=== PATIENT | male | born 1955 | race American Indian/Alaskan Native ===

== ENCOUNTER 2019-05-30 06:54 | Inpatient (IN) | payer OTHER ==
[2019-05-30] MEDS ORDERED: ASPIRIN PO ONE (07:12)
[2019-05-30] MEDS ORDERED: HEPARIN 10,000 UNITS/10 ML IV ONE (07:30)
[2019-05-30] MEDS ORDERED: NITROSTAT SL PRN (07:32)
[2019-05-30] MEDS ORDERED: PEPCID IV ONE (07:32)
[2019-05-30] MEDS ORDERED: MORPHINE IV ONE (07:32)
[2019-05-30 07:33] LABS: Basophils # (Auto) 0.1 K/mm3 (0.0-0.1); Basophils % (Auto) 0.7 % (0.0-1.8); Eosinophils % (Auto) 0.2 % (0.0-4.3); Hematocrit 50.1 % (35.5-45.6); Hemoglobin 16.1 gm/dl (11.8-15.2); Lymphocytes # (Auto) 2.7 K/mm3 (1.2-5.4); Lymphocytes % (Auto) 20.2 % (13.4-35.0); Mean Corpuscular HGB Conc 32 % (32-34); Mean Corpuscular Volume 87 fl (84-94); Monocytes # (Auto) 0.9 K/mm3 (0.0-0.8); Monocytes % (Auto) 6.6 % (0.0-7.3); Platelet Count 339 K/mm3 (140-440); Red Blood Count 5.78 M/mm3 (3.65-5.03); Red Cell Distribution Width 15.6 % (13.2-15.2)
--- NOTE | 2019-05-30 07:38 | Emergency Department Report ---
ED Chest Pain HPI - General Chief Complaint: Dyspnea/Respdistress Stated Complaint: SHORTNESS OF BREATH Time Seen by Provider: 05/30/19 07:16 Source: patient, RN notes reviewed Mode of arrival: Ambulatory Limitations: No Limitations - History of Present Illness Initial Comments: This is a 63-year-old gentleman. This patient is not known to this provider previously. The patient presents to the ER today with a complaint of nontraumatic chest pain and shortness of breath. The shortness of breath was present upon yesterday. It is constant, worsens with physical exertion and decreases with rest. The patient states that he has central and subxiphoid chest discomfort, which does not radiate to the back, arms and neck. There is no vomiting or diaphoresis. There is no leg pain. There is no leg swelling. Positive recent road trip to [place]. Patient describes a sudden change in his exercise tolerance, which he noticed yesterday morning. He denies headache, neck pain, abdominal pain, hematemesis, bright red blood per rectum. Took an aspirin within the past 24 hours, denies meth, cocaine use, and denies using of erectile dysfunction medications. MD Complaint: chest pain, other -: hour(s), days(s) (1) Onset: during rest Pain Location: substernal, left chest Pain Radiation: none Quality: aching Consistency: constant Improves With: rest Worsens With: exertion Context: recent travel re: dyspnea. denies: nausea, vomting, diaphoresis Aspirin use within the Past 7 Days: (1) Yes - Related Data On Oral Contraceptives: No Home Medications Medication Instructions Recorded Confirmed Last Taken Atenolol/Chlorthalidone [Tenoretic 1 tab PO QDAY 05/30/19 05/30/19 Unknown 100-25] Lisinopril [Zestril TAB] 40 mg PO QDAY 05/30/19 05/30/19 Unknown amLODIPine [Norvasc] 10 mg PO DAILY 05/30/19 05/30/19 Unknown Allergies Allergy/AdvReac Type Severity Reaction Status Date / Time No Known Allergies Allergy Unverified 05/30/19 07:05 Heart Score - HEART Score History: Highly suspicious EKG: Significant ST-depression Age: 45-65 Risk factors: 1-2 risk factors Troponin: 1-3x normal limit HEART Score: 7 - Critical Actions Critical Actions: >7 pts:50-65% risk of adverse cardiac event. Early invasive measures ED Review of Systems ROS: Stated complaint: SHORTNESS OF BREATH Other details as noted in HPI Constitutional: malaise. denies: fever Eyes: denies: eye discharge ENT: denies: epistaxis, congestion Respiratory: shortness of breath Cardiovascular: chest pain Gastrointestinal: denies: hematemesis, melena, hematochezia Genitourinary: denies: dysuria Musculoskeletal: back pain (endorses chronic back pain, other new) Skin: denies: lesions Neurological: weakness Psychiatric: anxiety Hematological/Lymphatic: denies: easy bleeding ED Past Medical Hx - Past Medical History Hx Hypertension: Yes Additional medical history: High Cholesterol - Surgical History Past Surgical History?: No - Social History Smoking Status: Current Every Day Smoker Substance Use Type: Alcohol - Medications Home Medications: Home Medications Medication Instructions Recorded Confirmed Last Taken Type Atenolol/Chlorthalidone [Tenoretic 1 tab PO QDAY 05/30/19 05/30/19 Unknown History 100-25] Lisinopril [Zestril TAB] 40 mg PO QDAY 05/30/19 05/30/19 Unknown History amLODIPine [Norvasc] 10 mg PO DAILY 05/30/19 05/30/19 Unknown History ED Physical Exam - General Limitations: No Limitations General appearance: alert, anxious - Head Head exam: Present: atraumatic, normocephalic - Eye Eye exam: Present: normal appearance, EOMI. Absent: nystagmus - ENT ENT exam: Present: normal exam, normal orophraynx, mucous membranes moist, n ormal external ear exam - Neck Neck exam: Present: normal inspection, full ROM. Absent: tenderness, meningismus - Respiratory Respiratory exam: Present: normal lung sounds bilaterally. Absent: respiratory distress - Cardiovascular Cardiovascular Exam: Present: normal rhythm, tachycardia, normal heart sounds. Absent: systolic murmur, diastolic murmur, rubs, gallop - GI/Abdominal GI/Abdominal exam: Present: soft. Absent: distended, tenderness, guarding, rebound, rigid, pulsatile mass - Rectal Rectal exam: Present: deferred - Extremities Exam Extremities exam: Present: normal inspection, full ROM, other (2+ pulses noted in the bilateral upper, lower extremities. Compartments soft. No long bony tenderness. The pelvis is stable.). Absent: pedal edema, joint swelling, calf tenderness - Back Exam Back exam: Present: normal inspection, full ROM. Absent: tenderness, CVA tenderness (R), CVA tenderness (L), paraspinal tenderness, vertebral tenderness - Neurological Exam Neurological exam: Present: alert, oriented X3, other (Extraocular movements intact. Tongue midline. No facial droop. Facial sensation intact to light touch in the V1, V2, V3 distribution bilaterally. 5 and 5 strength in 4 extremities.. Sensation is intact to light touch in 4 extremities.). Absent: motor sensory deficit - Psychiatric Psychiatric exam: Present: anxious - Skin Skin exam: Present: warm, dry, intact, normal color. Absent: rash ED Course Vital Signs 05/30/19 05/30/19 05/30/19 07:07 07:25 07:30 Temperature 99.3 F Pulse Rate 138 H 138 H Respiratory 18 26 H Rate Blood Pressure 126/90 O2 Sat by Pulse 93 92 Oximetry 05/30/19 05/30/19 05/30/19 07:46 07:50 08:00 Temperature Pulse Rate 131 H 133 H 120 H Respiratory 22 22 Rate Blood Pressure 84/55 O2 Sat by Pulse 93 89 Oximetry 05/30/19 05/30/19 05/30/19 08:58 09:00 09:16 Temperature Pulse Rate 120 H 122 H Respiratory 25 H 19 Rate Blood Pressure 114/83 114/83 123/82 O2 Sat by Pulse 93 94 89 Oximetry 05/30/19 05/30/19 05/30/19 09:30 09:46 10:00 Temperature Pulse Rate 114 H 121 H 120 H Respiratory 24 17 18 Rate Blood Pressure 99/69 102/68 102/68 O2 Sat by Pulse 88 87 86 Oximetry 05/30/19 05/30/19 05/30/19 10:16 10:30 10:46 Temperature Pulse Rate 115 H 113 H 117 H Respiratory 21 21 21 Rate Blood Pressure 112/76 112/76 103/82 O2 Sat by Pulse 95 96 94 Oximetry 05/30/19 05/30/19 05/30/19 11:00 11:16 11:30 Temperature Pulse Rate 117 H 117 H 118 H Respiratory 22 23 21 Rate Blood Pressure 103/82 108/72 108/72 O2 Sat by Pulse 94 94 92 Oximetry 05/30/19 05/30/19 11:46 12:00 Temperature Pulse Rate 116 H 118 H Respiratory 22 25 H Rate Blood Pressure 108/72 108/72 O2 Sat by Pulse 94 92 Oximetry - Reevaluation(s) Reevaluation #1: 05/30/19 07:41 Differential diagnosis, including not limited to: Acute coronary syndrome, pneumonia, pneumothorax, pulmonary embolism, anemia, pericardial effusion Assessment and plan: 63-year-old gentleman status post recent trip to [place], with tachycardic, low-grade temperature, presumed related ST depression, nonsp ecific ST abnormalities, initially called as a code STEMI overhead secondary to initial EKG morphology, EKG transmitted to staffing recruiter on-call, Dr. Richa Brooks, who advises that this EKG does not meet cleaner laboratory equipment criteria activation. A bedside ultrasound demonstrates hyperdynamic left ventricle and right ventricle, but appears to be a dilated right atrium right ventricle, no large pericardial effusion, suspicious for pulmonary embolism. Currently, CT scan angiogram capability is down, however, high suspicion for large pulmonary embolism at this time. EKG #2 is certainly not consistent with ST elevation myocardial infarction. Cardiology has recommended aspirin and heparinization which I agree with. Patient to be systemically anticoagulated. We will obtain emergent vascular rangel rgery and critical care pulmonary consult to assist with inpatient management, given that definitive noninvasive diagnostics cannot be obtained at this time. 05/30/19 07:56 Reevaluation #2: 05/30/19 07:57 Laboratory studies demonstrate renal insufficiency. Troponin pending. X-ray of the chest nonspecific, does not appear to be consistent with pneumothorax or pneumonia. We have discussed with vascular surgery Dr. Chávez. His group will follow in close consultation. They are in agreement with systemic anticoagulation with heparin. They will determine intervention based off of the VQ study. Critical care physician is paged. Hospital physician to arrange admission. 05/30/19 08:04 Dr. Soriano of critical care will follow in consultation. He is in agreement with the plans. The hospital physician, Dr. Ragland will admit to medical service Elevated troponin reviewed and appreciated. Patient found to have renal insufficiency. Given clinical history, and current EKG morphology, suspect type II troponin leak. Reevaluation #3: 05/30/19 09:00 As per verbal report, has DVT right lower extremity, and very high probability nuclear medicine study, suspicious for large clot burden, as suspected. Vascular surgery updated. Patient updated. Patient and family verbalized understanding. ASHU score - Ashu Score Age > 65: (0) No Aspirin use within the Past 7 Days: (1) Yes 3 or more CAD Risk Factors: (0) No 2 or more Angina events in past 24 hrs: (0) No Known CAD with more than 50% Stenosis: (0) No Elevated Cardiac Markers: (1) Yes ST Deviation Greater than 0.5mm: (1) Yes ASHU Score: 3 ED Medical Decision Making - Lab Data Result diagrams: 05/30/19 13:47 05/30/19 13:47 Vital Signs 05/30/19 07:07 Temperature 99.3 F Pulse Rate 138 H Respiratory 18 Rate Blood Pressure 126/90 O2 Sat by Pulse 93 Oximetry Lab Results 05/30/19 05/30/19 Range/Units 07:18 07:18 WBC 13.2 H (4.5-11.0) K/mm3 RBC 5.78 H (3.65-5.03) M/mm3 Hgb 16.1 H (11.8-15.2) gm/dl Hct 50.1 H (35.5-45.6) % MCV 87 (84-94) fl MCH 28 (28-32) pg MCHC 32 (32-34) % RDW 15.6 H (13.2-15.2) % Plt Count 339 (140-440) K/mm3 Lymph % (Auto) 20.2 (13.4-35.0) % [place] % (Auto) 6.6 (0.0-7.3) % Eos % (Auto) 0.2 (0.0-4.3) % Baso % (Auto) 0.7 (0.0-1.8) % Lymph # 2.7 (1.2-5.4) K/mm3 [place] # 0.9 H (0.0-0.8) K/mm3 Eos # 0.0 (0.0-0.4) K/mm3 Baso # 0.1 (0.0-0.1) K/mm3 Seg Neutrophils % 72.3 H (40.0-70.0) % Seg Neutrophils # 9.6 H (1.8-7.7) K/mm3 Sodium 141 (137-145) mmol/L Potassium 3.8 (3.6-5.0) mmol/L Chloride 97.6 L (98-107) mmol/L Carbon Dioxide 26 (22-30) mmol/L Anion Gap 21 mmol/L BUN 29 H (9-20) mg/dL Creatinine 2.0 H (0.8-1.5) mg/dL Estimated GFR 34 ml/min BUN/Creatinine Ratio 15 % Glucose 140 H (75-100) mg/dL Calcium 10.4 H (8.4-10.2) mg/dL Troponin T 0.202 H* (0.00-0.029) ng/mL Lab Results 05/30/19 05/30/19 Range/Units 07:18 07:18 WBC 13.2 H (4.5-11.0) K/mm3 RBC 5.78 H (3.65-5.03) M/mm3 Hgb 16.1 H (11.8-15.2) gm/dl Hct 50.1 H (35.5-45.6) % MCV 87 (84-94) fl MCH 28 (28-32) pg MCHC 32 (32-34) % RDW 15.6 H (13.2-15.2) % Plt Count 339 (140-440) K/mm3 Lymph % (Auto) 20.2 (13.4-35.0) % [place] % (Auto) 6.6 (0.0-7.3) % Eos % (Auto) 0.2 (0.0-4.3) % Baso % (Auto) 0.7 (0.0-1.8) % Lymph # 2.7 (1.2-5.4) K/mm3 [place] # 0.9 H (0.0-0.8) K/mm3 Eos # 0.0 (0.0-0.4) K/mm3 Baso # 0.1 (0.0-0.1) K/mm3 Seg Neutrophils % 72.3 H (40.0-70.0) % Seg Neutrophils # 9.6 H (1.8-7.7) K/mm3 Sodium 141 (137-145) mmol/L Potassium 3.8 (3.6-5.0) mmol/L Chloride 97.6 L (98-107) mmol/L Carbon Dioxide 26 (22-30) mmol/L Anion Gap 21 mmol/L BUN 29 H (9-20) mg/dL Creatinine 2.0 H (0.8-1.5) mg/dL Estimated GFR 34 ml/min BUN/Creatinine Ratio 15 % Glucose 140 H (75-100) mg/dL Calcium 10.4 H (8.4-10.2) mg/dL Troponin T 0.202 H* (0.00-0.029) ng/mL - EKG Data -: EKG Interpreted by Me EKG shows normal: sinus rhythm Rate: tachycardia - EKG Data 05/30/19 08:04 EKG #1 shows a sinus tachycardia, left axis deviation, left anterior fascicular block, atrial enlargement, poor R progression, ST depression in the lateral leads, nonspecific ST ST elevation in V1 and V2, the EKG is abnormal. The EKG is transmitted to interventional cardiology, Dr. Richa Brooks, who indicates the EKG does not meet STEMI criteria. EKG #2 shows a sinus tachycardia, 131 bpm, left axis deviation, QTC prolonged, poor r wave progression, improvement in nonspecific septal ST abnormalities, persistent depression V4 through V6. This EKG is abnormal. EKG is not consistent with ST elevation myocardial infarction. - Radiology Data Radiology results: image reviewed interpreted by me: X-ray of the chest negative for acute disease, chronic findings noted Print Report Referring Physician: PARKER DIAZ Patient Name: HERO KWONG Date of : 1955 Sex: Male Report Date: 2019-05-30 Report Status: [place] [address] Nuclear Medicine Report Signed Patient: HERO KWONG MR#: [id number] : 1955 Acct:[id number] Age/Sex: 63 / M ADM Date: 05/30/19 Loc: 3A A385-[address]: CARRIE RAGLAND MD Ordering Physician: PARKER DIAZ MD Date of Service: 05/30/19 Procedure(s): NM lung scan perf/vent Accession Number(s): [id number] cc: PARKER DIAZ MD VENTILATION PERFUSION PULMONARY SCINTIGRAPHY HISTORY: Chest pain, shortness of breath COMPARISON: 05/30/2019 chest radiograph. TECHNIQUE: Radiopharmaceutical was inhaled. Tc-99m-MAA was then injected. Ventilation and perfusion images were acquired. RADIOPHARMACEUTICAL: 8.3 mCi of Xe-133 inhaled Or 0.5 mCi of Tc-99m-MAA injected FINDINGS: VENTILATION: No significant air trapping or defect. PERFUSION: Multiple bilateral large mismatched perfusion defects are identified throughout both lungs consistent with a high probability of pulmonary embolus. Given the size and number of the defects, thrombus burden appears large. Additional Findings: None. IMPRESSION: High probability for bilateral pulmonary emboli. These findings were discussed with Dr. Garcia in the emergency department at 0853 hours EST. Signer Name: Celestine Saavedra Jr, MD Signed: 05/30/2019 8:58 AM Workstation Name: [id number] Transcribed By: TTR Dictated By: CELESTINE SAAVEDRA JR, MD Electronically Authenticated By: CELESTINE SAAVEDRA JR, MD Signed Date/Time: 05/30/19 0858 Critical Care Time: Yes Critical care time in (mins) excluding proc time.: 120 Critical care attestation.: If time is entered above; I have spent that time in minutes in the direct care of this critically ill patient, excluding procedure time. ED Disposition Clinical Impression: Acute chest pain, Acute dyspnea, ERLIN (acute kidney injury) Pulmonary embolism Qualifiers: Pulmonary embolism type: other Chronicity: unspecified Acute cor pulmonale presence: without acute cor pulmonale Qualified Code(s): I26.99 - Other pulmonary embolism without acute cor pulmonale Disposition: 09 OP ADMIT IP TO THIS HOSP Is pt being admited?: Yes Condition: Critical
[2019-05-30] MEDS ORDERED: NACL 0.9% 500 ML 500 ML IV ONE (07:39)
[2019-05-30 07:50] LABS: Calcium 10.4 mg/dL (8.4-10.2)
--- NOTE | 2019-05-30 07:57 | Event Note ---
Date: 05/30/19 63 year old male with SOB and CP with dilated right heart on echo with concern for submassive pulmonary embolism. Cr is 2. HR tachycardic. No hypotension. Not on pressors. O2 sat low 90s on oxygen. Not STEMI on EKG. Obtaining VQ scan. Will follow. Vascular consulted for possible submassive pulmonary embolism. Will order BL LE venous ultrasounds as well.
[2019-05-30] MEDS ORDERED: HEPARIN/ 0.45% NACL-25,000 UNIT/500 ML 25,000 UNIT/500 ML BAG IV SCH (08:00)
[2019-05-30] MEDS ORDERED: AMBIEN PO PRN (08:04)
[2019-05-30] MEDS ORDERED: SODIUM CHLORIDE FLUSH SYRINGE 10 ML IV PRN (08:04)
[2019-05-30] MEDS ORDERED: NORCO 5/325 PO PRN (08:04)
[2019-05-30] MEDS ORDERED: ZOFRAN IV PRN (08:04)
[2019-05-30] MEDS ORDERED: TYLENOL PO PRN (08:04)
--- NOTE | 2019-05-30 08:04 | XRay Report ---
CHEST 1 VIEW INDICATION: Chest Pain. COMPARISON: FINDINGS: Support devices: None. Heart: Within normal limits. Lungs/Pleura: The lungs are clear. A 5 mm calcified granuloma is identified in the right upper lobe. No evidence for pneumonia, pleural fluid or pneumothorax. The bony structures are grossly intact. Additional findings: None. IMPRESSION: No acute findings. Signer Name: Celestine Simon Jr, MD Signed: 05/30/2019 8:00 AM Workstation Name: [id number]
[2019-05-30 08:07] LABS: Chol/HDL Ratio 3.31 %
[2019-05-30 08:09] LABS: INR 1.05 (0.87-1.13); Partial Thromboplastin Time 33.2 Sec. (24.2-36.6)
--- NOTE | 2019-05-30 09:02 | Nuclear Medicine Report ---
VENTILATION PERFUSION PULMONARY SCINTIGRAPHY HISTORY: Chest pain, shortness of breath COMPARISON: 05/30/2019 chest radiograph. TECHNIQUE: Radiopharmaceutical was inhaled. Tc-99m-MAA was then injected. Ventilation and perfusion images were acquired. RADIOPHARMACEUTICAL: 8.3 mCi of Xe-133 inhaled Or 0.5 mCi of Tc-99m-MAA injected FINDINGS: VENTILATION: No significant air trapping or defect. PERFUSION: Multiple bilateral large mismatched perfusion defects are identified throughout both lungs consistent with a high probability of pulmonary embolus. Given the size and number of the defects, t hrombus burden appears large. Additional Findings: None. IMPRESSION: High probability for bilateral pulmonary emboli. These findings were discussed with Dr. Garcia in the emergency department at 0853 hours EST. Signer Name: Celestine Simon Jr, MD Signed: 05/30/2019 8:58 AM Workstation Name: [id number]
[2019-05-30] MEDS ORDERED: HEPARIN/ 0.45% NACL-25,000 UNIT/500 ML 25,000 UNIT/500 ML BAG ONE (09:52)
[2019-05-30] MEDS ORDERED: HEPARIN 10,000 UNITS/10 ML ONE (09:52)
[2019-05-30] MEDS: SODIUM CHLORIDE FLUSH SYRINGE 10 ML IV SCH ×2 (10:07→21:39)
--- NOTE | 2019-05-30 10:12 | Consultation ---
History of Present Illness Consult date: 05/30/19 Consult reason: chest pain, shortness of breath History of present illness: The patient is a 63-year-old man with a history of chronic hypertension, denies any prior cardiac history or prior cardiac work. He presented to the emergency room with a one-day history of chest pain and shortness of breath. ECG in the emergency room was abnormal, with sinus tachycardia and lateral ST depression, suggestive of acute ischemia. Cardiology consultation was requested. Further emergency room workup was indicated based on the patient's high oxygen requirement, and recent long road trip to [facility]. A VQ scan subsequently was high probability for pulmonary embolism, and a lower extremity venous Doppler was positive for left leg DVT. Chest x-ray was clear lungs, mild cardiomegaly. The patient is currently still in the emergency room, looks feels comfortable, his chest pain and shortness of breath has resolved, hemodynamically stable. Laboratory exam shows a mild increase in troponin levels, but more significantly and increasing creatinine of 2.0. Patient denies any prior history of chronic kidney disease, states that his last routine blood test was 6 months ago at the primary physician's office. Past History Past Medical History: hypertension Medications and Allergies Allergies Allergy/AdvReac Type Severity Reaction Status Date / Time No Known Allergies Allergy Unverified 05/30/19 07:05 Active Meds: Active Medications Acetaminophen (Tylenol) 650 mg PO Q4H PRN PRN Reason: Pain MILD(1-3)/Fever >100.5/BUSTOS Acetaminophen/Hydrocodone Bitart ([place] 5/325) 2 each PO Q6H PRN PRN Reason: Pain, Moderate (4-6) Heparin Sodium/Sodium Chloride (Heparin/ 0.45% Nacl-25,000 Unit/500 Ml) 25,000 unit in 500 mls @ 21 mls/hr IV TITR ANKUSH; Protocol Last Admin: 05/30/19 09:57 Dose: 1,050 units/hr, 21 mls/hr Documented by: Ondansetron HCl (Zofran) 4 mg IV Q8H PRN PRN Reason: Nausea And Vomiting Sodium Chloride (Sodium Chloride Flush Syringe 10 Ml) 10 ml IV BID ANKUSH Sodium Chloride (Sodium Chloride Flush Syringe 10 Ml) 10 ml IV PRN PRN PRN Reason: LINE FLUSH Zolpidem Tartrate (Ambien) 5 mg PO QHS PRN PRN Reason: Insomnia Review of Systems Cardiovascular: chest pain, shortness of breath, no orthopnea, no palpitations, no rapid/irregular heart beat, no edema, no syncope, no lightheadedness Physical Examination Vital Signs Temp Pulse Resp BP Pulse Ox 99.3 F 138 H 18 126/90 93 05/30/19 07:07 05/30/19 07:07 05/30/19 07:07 05/30/19 07:07 05/30/19 07:07 General appearance: no acute distress HEENT: Positive: PERRL Neck: Positive: neck supple Cardiac: Positive: Reg Rate and Rhythm Lungs: Positive: Decreased Breath Sounds Neuro: Positive: Grossly Intact Abdomen: Positive: Soft Male genitourinary: Positive: deferred Skin: Positive: Clear Extremities: Absent: edema Results 05/30/19 07:18 05/30/19 07:18 Coagulation 05/30/19 Range/Units 07:45 PT 13.4 (12.2-14.9) Sec. INR 1.05 (0.87-1.13) APTT 33.2 (24.2-36.6) Sec. Lipids 05/30/19 Range/Units 07:18 Triglycerides 117 (2-149) mg/dL Cholesterol 202 H (50-199) mg/dL HDL Cholesterol 61 H (40-59) mg/dL Cholesterol/HDL Ratio 3.31 % CBC 05/30/19 Range/Units 07:18 WBC 13.2 H (4.5-11.0) K/mm3 RBC 5.78 H (3.65-5.03) M/mm3 Hgb 16.1 H (11.8-15.2) gm/dl Hct 50.1 H (35.5-45.6) % Plt Count 339 (140-440) K/mm3 Lymph # 2.7 (1.2-5.4) K/mm3 [place] # 0.9 H (0.0-0.8) K/mm3 Eos # 0.0 (0.0-0.4) K/mm3 Baso # 0.1 (0.0-0.1) K/mm3 Comprehensive Metabolic Panel 05/30/19 Range/Units 07:18 Sodium 141 (137-145) mmol/L Potassium 3.8 (3.6-5.0) mmol/L Chloride 97.6 L (98-107) mmol/L Carbon Dioxide 26 (22-30) mmol/L BUN 29 H (9-20) mg/dL Creatinine 2.0 H (0.8-1.5) mg/dL Glucose 140 H (75-100) mg/dL Calcium 10.4 H (8.4-10.2) mg/dL EKG interpretations - Telemetry EKG Rhythm: Sinus Tachycardia (with lateral ST depression, suggestive of acute ischemia) Assessment and Plan - Patient Problems (1) Chest pain Current Visit: Yes Status: Acute Plan to address problem: Patient presents with chest pain and ECG abnormality suggestive of acute lateral ischemia. In addition, history, findings on VQ scan on left lower extremity venous Doppler are consistent with acute venous thromboembolism with bilateral pulmonary embolism. Differential diagnosis for abnormal ECG include acute lateral ischemia versus chronic abnormal ST changes of LVH exacerbated by ongoing tachycardia. There is subtle ST elevation in V1 to V2, consistent with RV strain from the acute pulmonary embolism but this will not explain ST segment ischemia in the lateral precordial leads. We will recommend intravenous heparin for treatment of acute PE and potential lateral wall ischemia. We will recommend nephrology consultation, and start IV saline hydration, follow daily creatinine levels. When clinically stable with respect to acute PE, we will determine further cardiac ischemic workup prior to institution of long-term oral anticoagulation. Echocardiogram will be done for left ventricle and right ventricular size and function.
--- NOTE | 2019-05-30 11:06 | Vascular Lab Report ---
DUPLEX DOPPLER LOWER EXTREMITY VEINS, BILATERAL INDICATION: Bilateral lower extremity pain and swelling. TECHNIQUE: Duplex doppler imaging was performed through the veins of both lower extremities using ve nous compression and other maneuvers. COMPARISON: No relevant prior imaging study available. FINDINGS: Right Common femoral vein: Negative. Right Superficial femoral vein: Positive for DVT in the distal right superficial femoral vein. Right Popliteal vein: Negative. Right Calf veins: Negative. Left Common femoral vein: Negative. Left Superficial femoral vein: Negative. Left Popliteal vein: Negative. Left Calf veins: Negative. Additional findings: None.. IMPRESSION: Positive for DVT in the distal right superficial femoral vein. Signer Name: Celestine Simon Jr, MD Signed: 05/30/2019 11:01 AM Workstation Name: [id number]
--- NOTE | 2019-05-30 12:14 | Consultation ---
History of Present Illness - Reason for Consult Consult date: 05/30/19 Suspected Bilateral Pulmonary Embolus Requesting physician: PARKER DIAZ - History of Present Illness The patient is a 63-year-old male who presented to the emergency department with complaints of chest pain and shortness of breath. He states that he initially felt chest pain yesterday when he was walking at [employer]. He states that the pain began all of a sudden and lead to him returning home. He says shortly after that the shortness of breath began prompting him to present to the ergency department. Upon presentation to the emergency department he was initially worked up for a STEMI however this was ruled out. His workup in turn to suspected pulmonary embolus however he was unable to undergo a CTA pulmonary embolus protocol secondary to an elevated creatinine of 2.0. He underwent bilateral lower extremity duplex's positive for an acute femoral vein DVT. He then had a VQ scan which was high probability for a DVT. He denies any recent significant weight loss. He did state that he had recent travel by personal vehicle to [facility]. He states shortly after that he had some right leg swelling with pain in his calf. He denies any history of GI bleeding, recent trauma, or recent surgery. He has no family history of clotting. He has no other complaints at this time. Past History Past Medical History: hypertension, hyperlipidemia Past Surgical History: appendectomy Social history: smoking (30+ years) Medications and Allergies Allergies Allergy/AdvReac Type Severity Reaction Status Date / Time No Known Allergies Allergy Unverified 05/30/19 07:05 Home Medications Medication Instructions Recorded Confirmed Last Taken Type Atenolol/Chlorthalidone [Tenoretic 1 tab PO QDAY 05/30/19 05/30/19 Unknown History 100-25] Lisinopril [Zestril TAB] 40 mg PO QDAY 05/30/19 05/30/19 Unknown History amLODIPine [Norvasc] 10 mg PO DAILY 05/30/19 05/30/19 Unknown History Active Meds: Active Medications Acetaminophen (Tylenol) 650 mg PO Q4H PRN PRN Reason: Pain MILD(1-3)/Fever >100.5/BUSTOS Acetaminophen/Hydrocodone Bitart ([place] 5/325) 2 each PO Q6H PRN PRN Reason: Pain, Moderate (4-6) Aspirin (Halfprin Ec) 81 mg PO QDAY ANK[facility] Atorvastatin Calcium (Lipitor) 40 mg PO QHS [facility] Heparin Sodium/Sodium Chloride (Heparin/ 0.45% Nacl-25,000 Unit/500 Ml) 25,000 unit in 500 mls @ 21 mls/hr IV TITR [facility]; Protocol Last Admin: 05/30/19 09:57 Dose: 1,050 units/hr, 21 mls/hr Documented by: Sodium Chloride (Nacl 0.9% 1000 Ml) 1,000 mls @ 75 mls/hr IV DIRECT ANKUSH Metoprolol Tartrate (Lopressor) 25 mg PO Q6HR [facility] Nitroglycerin (Nitro-Bid 2%) 0.5 inch TP QIDNTG [facility]; Protocol Ondansetron HCl (Zofran) 4 mg IV Q8H PRN PRN Reason: Nausea And Vomiting Sodium Chloride (Sodium Chloride Flush Syringe 10 Ml) 10 ml IV BID [facility] Last Admin: 05/30/19 10:07 Dose: 10 ml Documented by: Sodium Chloride (Sodium Chloride Flush Syringe 10 Ml) 10 ml IV PRN PRN PRN Reason: LINE FLUSH Zolpidem Tartrate (Ambien) 5 mg PO QHS PRN PRN Reason: Insomnia Review of Systems All systems: negative Exam - Constitutional Vitals: Temp Pulse Resp BP Pulse Ox 99.3 F 118 H 21 108/72 92 05/30/19 07:07 05/30/19 11:30 05/30/19 11:30 05/30/19 11:30 05/30/19 11:30 General appearance: Present: no acute distress - EENT ENT: hearing intact - Neck Neck: Present: supple - Respiratory Respiratory effort: normal - Cardiovascular Heart rate: 117 Rhythm: other (sinus rhythm with tachycardia) - Extremities Extremities: no ischemia, pulses intact, pulses symmetrical, normal temperature Extremity abnormal: edema (right lower extremity) - Abdominal General gastrointestinal: Present: soft, non-tender, non-distended Male genitourinary: Present: deferred - Rectal Rectal Exam: deferred - Integumentary Integumentary: Present: clear - Psychiatric Psychiatric: appropriate mood/affect Results - Labs CBC & Chem 7: 05/30/19 07:18 05/30/19 07:18 Labs: Abnormal lab results 05/30/19 05/30/19 05/30/19 Range/Units 07:18 07:18 07:18 WBC 13.2 H (4.5-11.0) K/mm3 RBC 5.78 H (3.65-5.03) M/mm3 Hgb 16.1 H (11.8-15.2) gm/dl Hct 50.1 H (35.5-45.6) % RDW 15.6 H (13.2-15.2) % [place] # 0.9 H (0.0-0.8) K/mm3 Seg Neutrophils % 72.3 H (40.0-70.0) % Seg Neutrophils # 9.6 H (1.8-7.7) K/mm3 Chloride 97.6 L (98-107) mmol/L BUN 29 H (9-20) mg/dL Creatinine 2.0 H (0.8-1.5) mg/dL Glucose 140 H (75-100) mg/dL Calcium 10.4 H (8.4-10.2) mg/dL Troponin T 0.202 H* (0.00-0.029) ng/mL NT-Pro-B Natriuret Pep 6186 H (0-900) pg/mL Cholesterol 202 H (50-199) mg/dL LDL Cholesterol Direct 141 H (50-130) mg/dL HDL Cholesterol 61 H (40-59) mg/dL 05/30/19 Range/Units 10:00 WBC (4.5-11.0) K/mm3 RBC (3.65-5.03) M/mm3 Hgb (11.8-15.2) gm/dl Hct (35.5-45.6) % RDW (13.2-15.2) % [place] # (0.0-0.8) K/mm3 Seg Neutrophils % (40.0-70.0) % Seg Neutrophils # (1.8-7.7) K/mm3 Chloride (98-107) mmol/L BUN (9-20) mg/dL Creatinine (0.8-1.5) mg/dL Glucose (75-100) mg/dL Calcium (8.4-10.2) mg/dL Troponin T 0.159 H* D (0.00-0.029) ng/mL NT-Pro-B Natriuret Pep (0-900) pg/mL Cholesterol (50-199) mg/dL LDL Cholesterol Direct (50-130) mg/dL HDL Cholesterol (40-59) mg/dL - Imaging and Cardiology EKG: report reviewed, image reviewed Chest x-ray: report reviewed (VQ scan), image reviewed (VQ scan) Venous US: image reviewed (bilateral lower extremity) Assessment and Plan The patient is a 63-year-old male who presents with shortness of breath and chest pain and an acute right lower extremity DVT with a VQ scan with high probability of bilateral pulmonary embolus. He has no history of recent trauma, GI bleeding, or surgery. He has evidence of right heart strain and decreased oxygen saturation despite supplemental oxygen. He is an adequate candidate for pulmonary artery thrombolysis. I have discussed the risk, benefits, and alternative procedures with the patient as well as his and daughter. They have expressed understanding of the procedure as well as the risk and benefits and have agreed to proceed.
[2019-05-30] MEDS ORDERED: NACL 0.9% 500 ML 1,000 ML ONE (12:31)
[2019-05-30] MEDS ORDERED: HEPARIN/NS 5000 UNIT/500ML(CATH LAB) 500 ML IR ONE (12:32)
[2019-05-30] MEDS ORDERED: CATHFLO ONE (12:32)
[2019-05-30] MEDS ORDERED: HEPARIN/ 0.45% NACL-25,000 UNIT/500 ML 50,000 UNIT/1,000 ML BAG ONE (12:32)
[2019-05-30] MEDS ORDERED: WATER FOR INJ Sterile (PF) 10 ML ONE (12:33)
[2019-05-30] MEDS ORDERED: XYLOCAINE 2% INFILTRATI ONE (12:33)
[2019-05-30] MEDS ORDERED: SUBLIMAZE ONE (12:34)
[2019-05-30] MEDS ORDERED: VERSED ONE (12:34)
--- NOTE | 2019-05-30 12:38 | Consultation ---
History of Present Illness Consult date: 05/30/19 Requesting physician: PARKER DIAZ Reason for consult: pulmonary embolism History of present illness: 63 y/o male with recent visit to [facility] presents with chest pain and shortness of breath. Unable to have CTA and sent for V/Q which has high prob. LE doppler's confirm DVT and started heparin. Pulmonary consulted secondary to VTE in chest. Past History Past Medical History: hypertension, hyperlipidemia Past Surgical History: appendectomy Social history: smoking (30+ years) Medications and Allergies Allergies Allergy/AdvReac Type Severity Reaction Status Date / Time No Known Allergies Allergy Unverified 05/30/19 07:05 Home Medications Medication Instructions Recorded Confirmed Last Taken Type Atenolol/Chlorthalidone [Tenoretic 1 tab PO QDAY 05/30/19 05/30/19 Unknown History 100-25] Lisinopril [Zestril TAB] 40 mg PO QDAY 05/30/19 05/30/19 Unknown History amLODIPine [Norvasc] 10 mg PO DAILY 05/30/19 05/30/19 Unknown History Active Meds: Active Medications Acetaminophen (Tylenol) 650 mg PO Q4H PRN PRN Reason: Pain MILD(1-3)/Fever >100.5/BUSTOS Acetaminophen/Hydrocodone Bitart ([place] 5/325) 2 each PO Q6H PRN PRN Reason: Pain, Moderate (4-6) Aspirin (Halfprin Ec) 81 mg PO QDAY ANKUSH Atorvastatin Calcium (Lipitor) 40 mg PO QHS [facility] Heparin Sodium/Sodium Chloride (Heparin/ 0.45% Nacl-25,000 Unit/500 Ml) 25,000 unit in 500 mls @ 21 mls/hr IV TITR [facility]; Protocol Last Admin: 05/30/19 09:57 Dose: 1,050 units/hr, 21 mls/hr Documented by: Sodium Chloride (Nacl 0.9% 1000 Ml) 1,000 mls @ 75 mls/hr IV DIRECT ANKUSH Metoprolol Tartrate (Lopressor) 25 mg PO Q6HR [facility] Nitroglycerin (Nitro-Bid 2%) 0.5 inch TP QIDNTG [facility]; Protocol Ondansetron HCl (Zofran) 4 mg IV Q8H PRN PRN Reason: Nausea And Vomiting Sodium Chloride (Sodium Chloride Flush Syringe 10 Ml) 10 ml IV BID ANKUSH Last Admin: 05/30/19 10:07 Dose: 10 ml Documented by: Sodium Chloride (Sodium Chloride Flush Syringe 10 Ml) 10 ml IV PRN PRN PRN Reason: LINE FLUSH Zolpidem Tartrate (Ambien) 5 mg PO QHS PRN PRN Reason: Insomnia Review of Systems All systems: negative Physical Examination Vital signs: Vital Signs Temp Pulse Resp BP Pulse Ox 99.3 F 138 H 18 126/90 93 05/30/19 07:07 05/30/19 07:07 05/30/19 07:07 05/30/19 07:07 05/30/19 07:07 General appearance: no acute distress, alert Eyes: non-icteric Neck: supple Effort: normal Ascultation: Bilateral: clear Percussion: Bilateral: not dull Tactile fremitus: Bilateral: normal Cardiovascular: other (sinus tach) Gastrointestinal: normoactive bowel sounds, soft normal mental status, non-focal exam Results - Laboratory Findings CBC and BMP: 05/31/19 04:25 05/31/19 04:25 PT/INR, D-dimer PT 13.4 Sec. (12.2-14.9) 05/30/19 07:45 INR 1.05 (0.87-1.13) 05/30/19 07:45 Abnormal lab findings: Abnormal Labs 05/30/19 05/30/19 05/30/19 07:18 07:18 07:18 WBC 13.2 H RBC 5.78 H Hgb 16.1 H Hct 50.1 H RDW 15.6 H [place] # 0.9 H Seg Neutrophils % 72.3 H Seg Neutrophils # 9.6 H Chloride 97.6 L BUN 29 H Creatinine 2.0 H Glucose 140 H Calcium 10.4 H Troponin T 0.202 H* NT-Pro-B Natriuret Pep 6186 H Cholesterol 202 H LDL Cholesterol Direct 141 H HDL Cholesterol 61 H 05/30/19 10:00 WBC RBC Hgb Hct RDW [place] # Seg Neutrophils % Seg Neutrophils # Chloride BUN Creatinine Glucose Calcium Troponin T 0.159 H* D NT-Pro-B Natriuret Pep Cholesterol LDL Cholesterol Direct HDL Cholesterol - Diagnostic Findings Chest x-ray: image reviewed (Clear CXR) Additional studies: V/Q read as high prob Assessment and Plan 63 y/o male with acute PE and DVT 1. EKOS by Vascular 2. heparin drip 3. Supplemental O2 4. Echo 5. Admit to ICU for further monitoring. CCT 31 minutes.
[2019-05-30] MEDS ORDERED: NACL 0.9% 1000 ML 1,000 ML IV SCH (13:00)
[2019-05-30] MEDS ORDERED: NACL 0.9% 1000 ML 1,000 ML SHEATH SCH ×2 (13:00)
[2019-05-30] MEDS ORDERED: HEPARIN/ 0.45% NACL-25,000 UNIT/500 ML 25,000 UNIT/500 ML BAG SHEATH SCH ×2 (13:00)
[2019-05-30] MEDS ORDERED: CATHFLO 10 MG in NACL 0.9% 250ML 250 ML IV SCH (13:00)
[2019-05-30] MEDS ORDERED: CATHFLO 10 MG in NACL 0.9% 250ML 250 ML EKOSDLUMEN SCH (13:00)
[2019-05-30] MEDS ORDERED: NACL 0.9% 1000 ML 1,000 ML EKOSCLUMEN SCH ×2 (13:00)
[2019-05-30] MEDS ORDERED: NACL 0.9% 500 ML 500 ML ONE (13:54)
[2019-05-30] MEDS: HEPARIN 10,000 UNITS/10 ML ONE ×3 (13:57→14:20)
[2019-05-30] MEDS: CATHFLO ONE ×2 (13:59→14:20)
[2019-05-30 14:08] LABS: Basophils # (Auto) 0.1 K/mm3 (0.0-0.1); Basophils % (Auto) 0.5 % (0.0-1.8); Hematocrit 43.9 % (35.5-45.6); Hemoglobin 14.4 gm/dl (11.8-15.2); Lymphocytes # (Auto) 1.6 K/mm3 (1.2-5.4); Lymphocytes % (Auto) 12.8 % (13.4-35.0); Mean Corpuscular HGB Conc 33 % (32-34); Mean Corpuscular Volume 86 fl (84-94); Monocytes # (Auto) 0.8 K/mm3 (0.0-0.8); Monocytes % (Auto) 6.6 % (0.0-7.3); Platelet Count 336 K/mm3 (140-440); Red Blood Count 5.08 M/mm3 (3.65-5.03); Red Cell Distribution Width 15.5 % (13.2-15.2)
[2019-05-30 14:18] LABS: INR 1.11 (0.87-1.13)
[2019-05-30 14:28] LABS: Calcium 9.7 mg/dL (8.4-10.2)
--- NOTE | 2019-05-30 14:29 | Operative Report ---
Operative Report Operative Report: Date of Procedure: 05/30/2019 Pre-operative Diagnosis: Suspected Bilateral Pulmonary Embolus Post-operative Diagnosis: Bilateral Pulmonary Embolus Procedure(s): 1. Ultrasound-Guided Access Right Common Femoral Vein with 6 Cypriot Sheath 2. Second Access Ultrasound-Guided Access Right Common Femoral Vein Was 6 Cypriot Sheath 3. Diagnostic Nonselective Main Pulmonary Arteriogram 4. Catheter Left Pulmonary Artery 5. Catheter Right Pulmonary Artery 6. Thrombolysis of Left Pulmonary Artery with 106 x 12 cm EKOS Catheter 7. Thrombolysis of Right Pulmonary Artery with 106 x 12 cm EKOS Catheter 8. Radiologic Supervision with Interpretation Surgeon: Reagan Gleason M.D. Personal Lines Insurance Agent: None Anesthesia: Local and IV Sedation Contrast: 30 mL EBL: Minimal Counts: Correct Complications: None Condition: Stable Findings: Near total occlusive thrombus of bilateral main pulmonary arteries. Specimen: None Indication: The patient is a 63-year-old male who presented to the emergency department with complaints of chest pain and shortness of breath 1 day. His workup included a venous duplex which revealed acute DVT of his right lower extremity. It also included a V/Q scan which was high probability of bilateral pulmonary embolus. He had EKG findings significant for right heart strain. Given these findings it was suspected that he had pulmonary embolus. He was offered a pulmonary arteriogram with possible thrombolysis. He was given the risk, benefits, and alternative procedures and consented to the procedure. Description of Procedure: The patient was brought to the systems testing laboratory technician and laid in supine position. After timeout was performed his right groin was prepped and draped in sterile fashion. He was adequate sedated and then ultrasound was used to identify the right common femoral vein and confirmed patency. Once patency was confirmed the overlying soft tissue and skin was anesthetized with lidocaine. 2 small stab incisions were made with an 11 blade and micropuncture technique was used to access the vein twice. Two 6 Cypriot sheaths were then placed by Seldinger kobi hnique. A 0.035 Bentson wire was advanced up one of the sheaths and a 0.035J wire was advanced through the other. A 6 [place] pigtail catheter was advanced into the main pulmonary artery and the nonselective pulmonary arteriogram was performed with 20 of left anterior oblique projection. This revealed near total occlusive thrombus and bilateral pulmonary arteries. The Bentson wire was reinserted and advanced into the left pulmonary artery. The 106 x 12 cm EKOS Thrombolysis Catheter was advanced over the wire and into position. The thrombolysis wire was then inserted into the catheter. A JR4 was advanced into the other 6 Cypriot sheath and then with the use of the [employer] wire advanced into the right atrium and then into the main pulmonary artery. There was then advanced into the right pulmonary artery and the wire was advanced into the distal artery. An additional 106 x 12 cm EKOS Thrombolysis Catheter was advanced over the wire and into the right pulmonary artery. The thrombolysis wire was then advanced to the catheter after removing the wire. Both thrombolysis catheter drug ports were primed with 4 mg of TPA respectively. Both colon ports were primed with 2000 units of heparin respectively and each sheath was primed with 3000 units of heparin respectively. The sheaths were secured to the skin with 0 silks and then the catheters were secured to the sheath. The catheters were then dressed with sterile dressings. The patient tolerated the procedure well. All sponge, needle, and instrument counts were correct. The patient was transported to the ICU in stable condition.
[2019-05-30 14:38] LABS: Partial Thromboplastin Time 73.6 Sec. (24.2-36.6)
--- NOTE | 2019-05-30 15:00 | History and Physical Report ---
History of Present Illness Date of examination: 05/30/19 Date of admission: 05/30/19 08:04 Chief complaint: Chest pain History of present illness: Patient is a 63-year-old -Turkish male with history of hypertension and hyperlipidemia who presented to the ED on account of 1 day history of midsternal chest pain. He described it as sharp in character, rated 9/10 and radiates downwards. The pain waxes and wanes. Pain is worse with walking but no known relieving factors. He has associated shortness of breath, palpitation, diaphoresis, right leg swelling, dry cough, headaches, nausea without vomiting and lightheadedness. No orthopnea, PND, fever, chills, syncope or loss of consciousness. Patient reports a recent travel to [facility] for about 61/2 hours in a motor vehicle. No prior history of presenting complaints. Past History Past Medical History: hypertension, hyperlipidemia Past Surgical History: appendectomy Social history: smoking (30+ years. Currently smokes E cigarette. He admits to daily alcohol consumption, about 1-2 shots of liquor. He denies illicit drug use) Family history: hypertension (parents), other (No known family history of clot formation) Medications and Allergies Allergies Allergy/AdvReac Type Severity Reaction Status Date / Time No Known Allergies Allergy Unverified 05/30/19 07:05 Home Medications Medication Instructions Recorded Confirmed Last Taken Type Atenolol/Chlorthalidone [Tenoretic 1 tab PO QDAY 05/30/19 05/30/19 Unknown History 100-25] Lisinopril [Zestril TAB] 40 mg PO QDAY 05/30/19 05/30/19 Unknown History amLODIPine [Norvasc] 10 mg PO DAILY 05/30/19 05/30/19 Unknown History Active Meds: Active Medications Acetaminophen (Tylenol) 650 mg PO Q4H PRN PRN Reason: Pain MILD(1-3)/Fever >100.5/BUSTOS Acetaminophen/Hydrocodone Bitart ([place] 5/325) 2 each PO Q6H PRN PRN Reason: Pain, Moderate (4-6) Aspirin (Halfprin Ec) 81 mg PO QDAY ANKUSH Atorvastatin Calcium (Lipitor) 40 mg PO QHS ANK[facility] Sodium Chloride (Nacl 0.9% 1000 Ml) 1,000 mls @ 75 mls/hr IV DIRECT ANKUSH Sodium Chloride (Nacl 0.9% 1000 Ml) 1,000 mls @ 30 mls/hr IV DIRECT ANKUSH Alteplase, Recombinant 10 mg/ (Sodium Chloride) 250 mls @ 10 mls/hr EKOSDLUMEN DIRECT ANKUSH Alteplase, Recombinant 10 mg/ (Sodium Chloride) 250 mls @ 10 mls/hr IV DIRECT ANKUSH Sodium Chloride (Nacl 0.9% 1000 Ml) 1,000 mls @ 30 mls/hr SHEATH DIRECT ANKUSH Sodium Chloride (Nacl 0.9% 1000 Ml) 1,000 mls @ 35 mls/hr EKOSCLUMEN DIRECT ANKUSH Sodium Chloride (Nacl 0.9% 1000 Ml) 1,000 mls @ 30 mls/hr SHEATH DIRECT ANKUSH Sodium Chloride (Nacl 0.9% 1000 Ml) 1,000 mls @ 35 mls/hr EKOSCLUMEN DIRECT ANKUSH Heparin Sodium/Sodium Chloride (Heparin/ 0.45% Nacl-25,000 Unit/500 Ml) 25,000 unit in 500 mls @ 10 mls/hr SHEATH DIRECT ANK[facility]; Protocol Heparin Sodium/Sodium Chloride (Heparin/ 0.45% Nacl-25,000 Unit/500 Ml) 25,000 unit in 500 mls @ 10 mls/hr SHEATH DIRECT [facility]; Protocol Metoprolol Tartrate (Lopressor) 25 mg PO Q6HR [facility] Nitroglycerin (Nitro-Bid 2%) 0.5 inch TP QIDNTG [facility]; Protocol Ondansetron HCl (Zofran) 4 mg IV Q8H PRN PRN Reason: Nausea And Vomiting Sodium Chloride (Sodium Chloride Flush Syringe 10 Ml) [address] [facility] Last Admin: 05/30/19 10:07 Dose: 10 ml Documented by: Sodium Chloride (Sodium Chloride Flush Syringe 10 Ml) 10 ml IV PRN PRN PRN Reason: LINE FLUSH Zolpidem Tartrate (Ambien) 5 mg PO QHS PRN PRN Reason: Insomnia Review of Systems All systems: negative (except as documented in the HPI, 14 point system reviewed were negative) Exam - Constitutional Vitals: Temp Pulse Resp BP Pulse Ox 99.3 F 118 H 25 H 108/72 92 05/30/19 07:07 05/30/19 12:00 05/30/19 12:00 05/30/19 12:00 05/30/19 12:00 General appearance: Present: no acute distress, well-nourished - EENT Eyes: Present: PERRL, EOM intact ENT: hearing intact, clear oral mucosa - Neck Neck: Present: supple, normal ROM - Respiratory Respiratory effort: normal Respiratory: bilateral: CTA - Cardiovascular Rhythm: regular (with tachycardia) Heart Sounds: Present: S1 & S2. Absent: rub, click - Extremities Extremities: pulses symmetrical, No edema Peripheral Pulses: within normal limits - Abdominal General gastrointestinal: Present: soft, non-tender, non-distended, normal bowel sounds Male genitourinary: Present: deferred - Integumentary Integumentary: Present: clear, warm, dry - Musculoskeletal Musculoskeletal: gait normal, strength equal bilaterally - Psychiatric Psychiatric: appropriate mood/affect, intact judgment & insight - Neurologic Neurologic: CNII-XII intact, moves all extremities Results - Labs CBC & Chem 7: 05/30/19 13:47 05/30/19 13:47 Labs: Laboratory Last Values WBC 12.8 K/mm3 (4.5-11.0) H 05/30/19 13:47 RBC 5.08 M/mm3 (3.65-5.03) H 05/30/19 13:47 Hgb 14.4 gm/dl (11.8-15.2) 05/30/19 13:47 Hct 43.9 % (35.5-45.6) D 05/30/19 13:47 MCV 86 fl (84-94) 05/30/19 13:47 MCH 28 pg (28-32) 05/30/19 13:47 MCHC 33 % (32-34) 05/30/19 13:47 RDW 15.5 % (13.2-15.2) H 05/30/19 13:47 Plt Count 336 K/mm3 (140-440) 05/30/19 13:47 Lymph % (Auto) 12.8 % (13.4-35.0) L 05/30/19 13:47 [place] % (Auto) 6.6 % (0.0-7.3) 05/30/19 13:47 Eos % (Auto) 0.0 % (0.0-4.3) 05/30/19 13:47 Baso % (Auto) 0.5 % (0.0-1.8) 05/30/19 13:47 Lymph # 1.6 K/mm3 (1.2-5.4) 05/30/19 13:47 [place] # 0.8 K/mm3 (0.0-0.8) 05/30/19 13:47 Eos # 0.0 K/mm3 (0.0-0.4) 05/30/19 13:47 Baso # 0.1 K/mm3 (0.0-0.1) 05/30/19 13:47 Seg Neutrophils % 80.1 % (40.0-70.0) H 05/30/19 13:47 Seg Neutrophils # 10.3 K/mm3 (1.8-7.7) H 05/30/19 13:47 PT 14.0 Sec. (12.2-14.9) 05/30/19 13:47 INR 1.11 (0.87-1.13) 05/30/19 13:47 APTT 73.6 Sec. (24.2-36.6) H* 05/30/19 13:47 512 mg/dl (211-480) H 05/30/19 13:47 Sodium 141 mmol/L (137-145) 05/30/19 13:47 Potassium 4.0 mmol/L (3.6-5.0) 05/30/19 13:47 Chloride 99.4 mmol/L (98-107) 05/30/19 13:47 Carbon Dioxide 23 mmol/L (22-30) 05/30/19 13:47 23 mmol/L 05/30/19 13:47 BUN 31 mg/dL (9-20) H 05/30/19 13:47 2.0 mg/dL (0.8-1.5) H 05/30/19 13:47 Estimated GFR 41 ml/min 05/30/19 13:47 16 % 05/30/19 13:47 Glucose 149 mg/dL (75-100) H 05/30/19 13:47 Calcium 9.7 mg/dL (8.4-10.2) 05/30/19 13:47 0.146 ng/mL (0.00-0.029) H* 05/30/19 13:47 NT-Pro-B Natriuret Pep 6186 pg/mL (0-900) H 05/30/19 07:18 Triglycerides 117 mg/dL (2-149) 05/30/19 07:18 Cholesterol 202 mg/dL (50-199) H 05/30/19 07:18 141 mg/dL (50-130) H 05/30/19 07:18 61 mg/dL (40-59) H 05/30/19 07:18 3.31 % 05/30/19 07:18 Blood Type O POSITIVE 05/30/19 13:47 Antibody Screen Negative 05/30/19 13:47 Assessment and Plan Assessment and plan: Acute RT LE DVT/PE with right heart strain -S/P thrombolysis of bilateral pulmonary arteries -Venous duplex positive for RT superficial femoral vein stenosis -VQ scan reported as high probability for PE. Patient unable to obtain CTA chest due to renal impairment -Patient will be admitted to the ICU for close monitoring. Continue heparin drip -Vascular surgery following Elevated troponin with abnormal EKG -Continue serial troponin level monitoring -On heparin drip, BB and statin -Echo pending -Cardiology following Acute respiratory failure with hypoxia -Continue oxygen supplementation via NC as needed Hypertension -Controlled Sinus tachycardia -Continue Lopressor, will monitor ERLIN -Probably vasomotor nephropathy -On IV fluid, will monitor creatinine level SIRS due to noninfectious cause -Chest x-ray negative, urinalysis pending -We will monitor Elevated BNP -Echocardiogram to assess EF and valvular function pending HLD -Continue statin Mild hypercalcemia -Resolved Hyperglycemia -We'll check hemoglobin A1c level I spent 45 minutes providing critical care to this seriously ill patient will requires frequent reassessments of his cardiovascular and respiratory status.
[2019-05-30] MEDS: LOPRESSOR PO SCH ×2 (15:25→18:35)
[2019-05-30] MEDS: NITRO-BID 2% TP SCH ×2 (15:30→18:35)
[2019-05-30 18:02] LABS: Fibrinogen 550 mg/dl (211-480); INR 1.14 (0.87-1.13)
[2019-05-30 18:11] LABS: Partial Thromboplastin Time > 240.0 Sec. (24.2-36.6)
[2019-05-30 20:22] LABS: Bilirubin,Urine NEG (Negative); Blood,Urine MOD (Negative); Color,Urine Yellow (Yellow); Mucus,Urine 2+ /HPF; Urobilinogen,Urine < 2.0 mg/dL (<2.0)
[2019-05-30] MEDS: ROBITUSSIN PO PRN (23:17)
[2019-05-31] MEDS: ROBITUSSIN PO PRN ×2 (04:17→07:57)
[2019-05-31 05:41] LABS: Hematocrit 39.9 % (35.5-45.6); Hemoglobin 13.2 gm/dl (11.8-15.2); Mean Corpuscular HGB Conc 33 % (32-34); Mean Corpuscular Volume 85 fl (84-94); Red Blood Count 4.69 M/mm3 (3.65-5.03); Red Cell Distribution Width 15.3 % (13.2-15.2)
[2019-05-31 05:43] LABS: Platelet Count 249 K/mm3 (140-440)
[2019-05-31 06:27] LABS: Calcium 9.1 mg/dL (8.4-10.2)
[2019-05-31] MEDS: HALFPRIN EC PO SCH (09:26)
[2019-05-31] MEDS ORDERED: HEPARIN/NS 5000 UNIT/500ML(CATH LAB) 500 ML IR ONE (10:36)
[2019-05-31] MEDS ORDERED: HEPARIN 10,000 UNITS/10 ML ONE (10:37)
[2019-05-31] MEDS: XYLOCAINE 2% INFILTRATI ONE ×2 (10:41→11:07)
[2019-05-31] MEDS: SUBLIMAZE ONE ×2 (10:41→11:05)
[2019-05-31] MEDS: VERSED ONE ×2 (10:41→11:05)
--- NOTE | 2019-05-31 11:00 | Progress Note ---
Assessment and Plan 63 y/o male with acute PE and DVT 1. EKOS by Vascular, removing today. 2. heparin drip and lying down for 4-6 hours post removal 3. Supplemental O2 4. Echo 5. oral anticoagulation when ready per vascular 6. Likely move out of unit later today or first thing tomorrow morning. Subjective Date of service: 05/31/19 Interval history: Patient off floor having EKOS catheters removed. Stable. No acute events overnight. Objective Vital Signs - 12hr 05/30/19 05/30/19 05/30/19 23:00 23:15 23:30 Temperature Pulse Rate 114 H 115 H 114 H Pulse Rate [ From Monitor] Respiratory 26 H 23 28 H Rate Blood Pressure 103/74 111/79 114/85 O2 Sat by Pulse 96 97 Oximetry 05/30/19 05/31/19 05/31/19 23:45 00:00 00:15 Temperature 99.1 F Pulse Rate 113 H 112 H 112 H Pulse Rate [ 112 H From Monitor] Respiratory 26 H 23 24 Rate Blood Pressure 103/75 111/80 116/73 O2 Sat by Pulse 100 96 96 Oximetry 05/31/19 05/31/19 05/31/19 00:30 00:45 01:00 Temperature Pulse Rate 115 H 113 H 111 H Pulse Rate [ From Monitor] Respiratory 29 H 25 H 19 Rate Blood Pressure 124/83 110/72 101/77 O2 Sat by Pulse 100 97 Oximetry 05/31/19 05/31/19 05/31/19 01:15 01:30 01:45 Temperature Pulse Rate 110 H 111 H 111 H Pulse Rate [ From Monitor] Respiratory 20 21 22 Rate Blood Pressure 99/78 104/83 107/72 O2 Sat by Pulse 98 98 95 Oximetry 05/31/19 05/31/19 05/31/19 02:00 02:15 02:30 Temperature Pulse Rate 111 H 109 H 110 H Pulse Rate [ From Monitor] Respiratory 21 24 21 Rate Blood Pressure 96/76 97/79 102/72 O2 Sat by Pulse 96 95 Oximetry 05/31/19 05/31/19 05/31/19 02:45 03:00 03:15 Temperature Pulse Rate 111 H 111 H 107 H Pulse Rate [ From Monitor] Respiratory 27 H 27 H 28 H Rate Blood Pressure 106/82 106/78 100/79 O2 Sat by Pulse 95 96 95 Oximetry 05/31/19 05/31/19 05/31/19 03:30 03:40 03:45 Temperature 99.7 F H Pulse Rate 109 H 107 H Pulse Rate [ From Monitor] Respiratory 23 28 H Rate Blood Pressure 109/78 108/80 O2 Sat by Pulse 93 96 Oximetry 05/31/19 05/31/19 05/31/19 04:00 04:15 04:30 Temperature Pulse Rate 108 H 114 H 110 H Pulse Rate [ 108 H From Monitor] Respiratory 21 33 H 27 H Rate Blood Pressure 102/68 121/84 126/77 O2 Sat by Pulse 94 93 94 Oximetry 05/31/19 05/31/19 05/31/19 04:45 05:00 05:16 Temperature Pulse Rate 106 H 105 H 114 H Pulse Rate [ From Monitor] Respiratory 27 H 20 28 H Rate Blood Pressure 117/76 102/77 111/67 O2 Sat by Pulse 95 100 Oximetry 05/31/19 05/31/19 05/31/19 05:30 05:45 06:00 Temperature Pulse Rate 105 H 104 H 104 H Pulse Rate [ From Monitor] Respiratory 21 22 19 Rate Blood Pressure 110/76 118/81 112/78 O2 Sat by Pulse 96 93 97 Oximetry 05/31/19 05/31/19 05/31/19 06:15 06:30 06:45 Temperature Pulse Rate 107 H 104 H 109 H Pulse Rate [ From Monitor] Respiratory 25 H 24 31 H Rate Blood Pressure 126/86 115/70 121/87 O2 Sat by Pulse 95 96 98 Oximetry 05/31/19 05/31/19 05/31/19 07:00 07:15 07:30 Temperature Pulse Rate 106 H 105 H 104 H Pulse Rate [ From Monitor] Respiratory 25 H 27 H 21 Rate Blood Pressure 111/69 111/77 103/79 O2 Sat by Pulse 96 96 99 Oximetry 05/31/19 05/31/19 05/31/19 07:45 08:00 08:15 Temperature 99.5 F Pulse Rate 106 H 101 H 106 H Pulse Rate [ 101 H From Monitor] Respiratory 29 H 29 H 28 H Rate Blood Pressure 132/93 138/87 150/91 O2 Sat by Pulse 93 99 97 Oximetry 05/31/19 05/31/19 05/31/19 08:19 08:30 08:45 Temperature Pulse Rate 107 H 102 H Pulse Rate [ From Monitor] Respiratory 31 H 24 Rate Blood Pressure 123/86 123/79 O2 Sat by Pulse 98 100 97 Oximetry Constitutional: no acute distress, alert Eyes: non-icteric Neck: supple Effort: normal Ascultation: Bilateral: clear Percussion: Bilateral: not dull Tactile fremitus: Bilateral: normal Cardiovascular: other (sinus tach) Gastrointestinal: normoactive bowel sounds, soft Neurologic: normal mental status, non-focal exam CBC and BMP: 05/31/19 04:25 05/31/19 04:25 ABG, PT/INR, D-dimer: PT/INR, D-dimer PT 14.3 Sec. (12.2-14.9) 05/30/19 16:36 INR 1.14 (0.87-1.13) H 05/30/19 16:36 Abnormal lab findings: Abnormal Labs 05/30/19 05/30/19 05/30/19 07:18 07:18 07:18 WBC 13.2 H RBC 5.78 H Hgb 16.1 H Hct 50.1 H RDW 15.6 H Lymph % (Auto) [place] # 0.9 H Seg Neutrophils % 72.3 H Seg Neutrophils # 9.6 H INR APTT Fibrinogen Potassium Chloride 97.6 L BUN 29 H Creatinine 2.0 H Glucose 140 H Calcium 10.4 H Troponin T 0.202 H* NT-Pro-B Natriuret Pep 6186 H Cholesterol 202 H LDL Cholesterol Direct 141 H HDL Cholesterol 61 H Ur Specific [place] Urine WBC (Auto) 05/30/19 05/30/19 05/30/19 10:00 13:47 13:47 WBC RBC Hgb Hct RDW Lymph % (Auto) [place] # Seg Neutrophils % Seg Neutrophils # INR APTT 73.6 H* Fibrinogen 512 H Potassium Chloride BUN Creatinine Glucose Calcium Troponin T 0.159 H* D 0.146 H* NT-Pro-B Natriuret Pep Cholesterol LDL Cholesterol Direct HDL Cholesterol Ur Specific [place] Urine WBC (Auto) 05/30/19 05/30/19 05/30/19 13:47 13:47 16:36 WBC 12.8 H RBC 5.08 H Hgb Hct RDW 15.5 H Lymph % (Auto) 12.8 L [place] # Seg Neutrophils % 80.1 H Seg Neutrophils # 10.3 H INR 1.14 H APTT > 240.0 H* Fibrinogen 550 H Potassium Chloride BUN 31 H Creatinine 2.0 H Glucose 149 H Calcium Troponin T NT-Pro-B Natriuret Pep Cholesterol LDL Cholesterol Direct HDL Cholesterol Ur Specific [place] Urine WBC (Auto) 05/30/19 05/31/19 05/31/19 19:12 04:25 04:25 WBC 12.7 H RBC Hgb Hct RDW 15.3 H Lymph % (Auto) [place] # Seg Neutrophils % Seg Neutrophils # INR APTT Fibrinogen Potassium 3.5 L Chloride BUN 29 H Creatinine 1.7 H Glucose 131 H Calcium Troponin T NT-Pro-B Natriuret Pep Cholesterol LDL Cholesterol Direct HDL Cholesterol Ur Specific [place] 1.047 H Urine WBC (Auto) 10.0 H
--- NOTE | 2019-05-31 11:20 | Progress Note ---
<OMNA HERNANDEZ - Last Filed: 05/31/19 11:17> Assessment and Plan Acute DVT with bilateral PE s/p EKOS Chest pain Abnormal ECG suggestive of acute lateral ischemia. differential diagnosis for abnormal ECG include acute lateral ischemia versus chronic abnormal ST changes of LVH exacerbated by ongoing tachycardia. Acute renal failure Hypertension Recommendations: Echocardiogram will be done for left ventricle and right ventricular size and function. When clinically stable with respect to acute PE, we will determine further cardiac ischemic workup prior to institution of long-term oral anticoagulation. Subjective Date of service: 05/31/19 Interval history: Patient is resting in bed comfortably. Objective Vital Signs Temp Pulse Pulse Resp BP Pulse Ox 05/31/19 08:45 102 H 24 123/79 97 05/31/19 08:30 107 H 31 H 123/86 100 05/31/19 08:19 98 05/31/19 08:15 106 H 28 H 150/91 97 05/31/19 08:00 99.5 F 101 H 101 H 29 H 138/87 99 05/31/19 07:45 106 H 29 H 132/93 93 05/31/19 07:30 104 H 21 103/79 99 05/31/19 07:15 105 H 27 H 111/77 96 05/31/19 07:00 106 H 25 H 111/69 96 05/31/19 06:45 109 H 31 H 121/87 98 05/31/19 06:30 104 H 24 115/70 96 05/31/19 06:15 107 H 25 H 126/86 95 05/31/19 06:00 104 H 19 112/78 97 05/31/19 05:45 104 H 22 118/81 93 05/31/19 05:30 105 H 21 110/76 96 05/31/19 05:16 114 H 28 H 111/67 100 05/31/19 05:00 105 H 20 102/77 95 05/31/19 04:45 106 H 27 H 117/76 05/31/19 04:30 110 H 27 H 126/77 94 05/31/19 04:15 114 H 33 H 121/84 93 05/31/19 04:00 108 H 108 H 21 102/68 94 05/31/19 03:45 107 H 28 H 108/80 96 05/31/19 03:40 99.7 F H 05/31/19 03:30 109 H 23 109/78 93 05/31/19 03:15 107 H 28 H 100/79 95 05/31/19 03:00 111 H 27 H 106/78 96 05/31/19 02:45 111 H 27 H 106/82 95 05/31/19 02:30 110 H 21 102/72 95 05/31/19 02:15 109 H 24 97/79 05/31/19 02:00 111 H 21 96/76 96 05/31/19 01:45 111 H 22 107/72 95 05/31/19 01:30 111 H 21 104/83 98 05/31/19 01:15 110 H 20 99/78 98 05/31/19 01:00 111 H 19 101/77 97 05/31/19 00:45 113 H 25 H 110/72 05/31/19 00:30 115 H 29 H 124/83 100 05/31/19 00:15 112 H 24 116/73 96 05/31/19 00:00 99.1 F 112 H 112 H 23 111/80 96 05/30/19 23:45 113 H 26 H 103/75 100 05/30/19 23:30 114 H 28 H 114/85 97 05/30/19 23:15 115 H 23 111/79 05/30/19 23:00 114 H 26 H 103/74 96 05/30/19 22:45 114 H 26 H 107/73 98 05/30/19 22:30 112 H 30 H 107/70 95 05/30/19 22:15 115 H 35 H 107/67 96 05/30/19 22:00 120 H 33 H 99/76 97 05/30/19 21:50 120 H 34 H 102/72 97 05/30/19 21:40 119 H 29 H 97/71 92 05/30/19 21:30 114 H 22 97/71 97 05/30/19 21:20 116 H 24 107/79 98 05/30/19 21:10 118 H 23 108/64 99 05/30/19 21:00 118 H 24 108/64 98 05/30/19 20:50 117 H 29 H 100/75 98 05/30/19 20:40 118 H 29 H 113/69 97 05/30/19 20:30 117 H 24 113/69 99 05/30/19 20:20 119 H 30 H 114/75 97 05/30/19 20:10 119 H 29 H 100/72 98 05/30/19 20:00 99.6 F 118 H 119 H 28 H 100/72 100 05/30/19 19:50 124 H 21 113/76 98 05/30/19 19:40 119 H 25 H 105/73 97 05/30/19 19:30 119 H 27 H 105/73 05/30/19 19:20 119 H 33 H 113/76 97 05/30/19 19:12 97 05/30/19 19:10 121 H 31 H 110/81 95 05/30/19 19:00 120 H 31 H 110/81 96 05/30/19 18:50 120 H 28 H 121/78 97 05/30/19 18:40 124 H 27 H 111/79 98 05/30/19 18:30 124 H 26 H 111/79 98 05/30/19 18:20 124 H 24 107/75 99 05/30/19 18:10 125 H 23 112/72 98 05/30/19 18:00 124 H 20 112/72 98 05/30/19 17:50 125 H 39 H 107/75 98 05/30/19 17:40 124 H 27 H 115/72 96 05/30/19 17:30 124 H 30 H 115/72 97 05/30/19 17:20 122 H 28 H 114/78 95 05/30/19 17:10 125 H 26 H 115/81 93 05/30/19 17:00 127 H 27 H 115/81 96 05/30/19 16:50 121 H 33 H 114/78 96 05/30/19 16:40 121 H 24 115/77 96 05/30/19 16:30 124 H 29 H 115/77 95 05/30/19 16:20 125 H 24 115/77 95 05/30/19 16:10 123 H 29 H 142/87 100 05/30/19 16:00 99.7 F H 126 H 125 H 28 H 142/87 96 05/30/19 15:50 129 H 31 H 142/87 96 05/30/19 15:40 127 H 25 H 132/86 95 05/30/19 15:30 126 H 30 H 128/92 95 05/30/19 15:20 122 H 33 H 128/92 97 05/30/19 15:10 124 H 33 H 143/77 97 05/30/19 15:00 124 H 36 H 143/77 91 05/30/19 14:50 123 H 32 H 143/77 98 05/30/19 14:46 125 H 21 05/30/19 12:00 118 H 25 H 108/72 92 05/30/19 11:46 116 H 22 108/72 94 05/30/19 11:30 118 H 21 108/72 92 - Physical Examination General: No Apparent Distress HEENT: Positive: PERRL Neck: Positive: neck supple Cardiac: Positive: Reg Rate and Rhythm Neuro: Positive: Grossly Intact Extremities: Absent: edema - Labs and Meds Coagulation 05/30/19 05/30/19 Range/Units 13:47 16:36 PT 14.0 14.3 (12.2-14.9) Sec. INR 1.11 1.14 H (0.87-1.13) APTT 73.6 H* > 240.0 H* (24.2-36.6) Sec. CBC 05/30/19 05/31/19 Range/Units 13:47 04:25 WBC 12.8 H 12.7 H (4.5-11.0) K/mm3 RBC 5.08 H 4.69 (3.65-5.03) M/mm3 Hgb 14.4 13.2 (11.8-15.2) gm/dl Hct 43.9 D 39.9 (35.5-45.6) % Plt Count 336 249 (140-440) K/mm3 Lymph # 1.6 (1.2-5.4) K/mm3 [place] # 0.8 (0.0-0.8) K/mm3 Eos # 0.0 (0.0-0.4) K/mm3 Baso # 0.1 (0.0-0.1) K/mm3 Comprehensive Metabolic Panel 05/30/19 05/31/19 Range/Units 13:47 04:25 Sodium 141 137 (137-145) mmol/L Potassium 4.0 3.5 L (3.6-5.0) mmol/L Chloride 99.4 98.9 (98-107) mmol/L Carbon Dioxide 23 22 (22-30) mmol/L BUN 31 H 29 H (9-20) mg/dL Creatinine 2.0 H 1.7 H (0.8-1.5) mg/dL Glucose 149 H 131 H (75-100) mg/dL Calcium 9.7 9.1 (8.4-10.2) mg/dL <PARKER GUTIERREZ - Last Filed: 05/31/19 11:56> Assessment and Plan As seen and evaluated the patient refused this as planned. Patient is currently clinically stable with suspected acute PE. Patient's EIKOS catheters are planned for removal today. Awaiting echocardiogram Objective Vital Signs Temp Pulse Pulse Resp BP Pulse Ox 05/31/19 08:45 102 H 24 123/79 97 05/31/19 08:30 107 H 31 H 123/86 100 05/31/19 08:19 98 05/31/19 08:15 106 H 28 H 150/91 97 05/31/19 08:00 99.5 F 101 H 101 H 29 H 138/87 99 05/31/19 07:45 106 H 29 H 132/93 93 05/31/19 07:30 104 H 21 103/79 99 05/31/19 07:15 105 H 27 H 111/77 96 05/31/19 07:00 106 H 25 H 111/69 96 05/31/19 06:45 109 H 31 H 121/87 98 05/31/19 06:30 104 H 24 115/70 96 05/31/19 06:15 107 H 25 H 126/86 95 05/31/19 06:00 104 H 19 112/78 97 05/31/19 05:45 104 H 22 118/81 93 05/31/19 05:30 105 H 21 110/76 96 05/31/19 05:16 114 H 28 H 111/67 100 05/31/19 05:00 105 H 20 102/77 95 05/31/19 04:45 106 H 27 H 117/76 05/31/19 04:30 110 H 27 H 126/77 94 05/31/19 04:15 114 H 33 H 121/84 93 05/31/19 04:00 108 H 108 H 21 102/68 94 05/31/19 03:45 107 H 28 H 108/80 96 05/31/19 03:40 99.7 F H 05/31/19 03:30 109 H 23 109/78 93 05/31/19 03:15 107 H 28 H 100/79 95 05/31/19 03:00 111 H 27 H 106/78 96 05/31/19 02:45 111 H 27 H 106/82 95 05/31/19 02:30 110 H 21 102/72 95 05/31/19 02:15 109 H 24 97/79 05/31/19 02:00 111 H 21 96/76 96 05/31/19 01:45 111 H 22 107/72 95 05/31/19 01:30 111 H 21 104/83 98 05/31/19 01:15 110 H 20 99/78 98 05/31/19 01:00 111 H 19 101/77 97 05/31/19 00:45 113 H 25 H 110/72 05/31/19 00:30 115 H 29 H 124/83 100 05/31/19 00:15 112 H 24 116/73 96 05/31/19 00:00 99.1 F 112 H 112 H 23 111/80 96 05/30/19 23:45 113 H 26 H 103/75 100 05/30/19 23:30 114 H 28 H 114/85 97 05/30/19 23:15 115 H 23 111/79 05/30/19 23:00 114 H 26 H 103/74 96 05/30/19 22:45 114 H 26 H 107/73 98 05/30/19 22:30 112 H 30 H 107/70 95 05/30/19 22:15 115 H 35 H 107/67 96 05/30/19 22:00 120 H 33 H 99/76 97 05/30/19 21:50 120 H 34 H 102/72 97 05/30/19 21:40 119 H 29 H 97/71 92 05/30/19 21:30 114 H 22 97/71 97 05/30/19 21:20 116 H 24 107/79 98 05/30/19 21:10 118 H 23 108/64 99 05/30/19 21:00 118 H 24 108/64 98 05/30/19 20:50 117 H 29 H 100/75 98 05/30/19 20:40 118 H 29 H 113/69 97 05/30/19 20:30 117 H 24 113/69 99 05/30/19 20:20 119 H 30 H 114/75 97 05/30/19 20:10 119 H 29 H 100/72 98 05/30/19 20:00 99.6 F 118 H 119 H 28 H 100/72 100 05/30/19 19:50 124 H 21 113/76 98 05/30/19 19:40 119 H 25 H 105/73 97 05/30/19 19:30 119 H 27 H 105/73 05/30/19 19:20 119 H 33 H 113/76 97 05/30/19 19:12 97 05/30/19 19:10 121 H 31 H 110/81 95 05/30/19 19:00 120 H 31 H 110/81 96 05/30/19 18:50 120 H 28 H 121/78 97 05/30/19 18:40 124 H 27 H 111/79 98 05/30/19 18:30 124 H 26 H 111/79 98 05/30/19 18:20 124 H 24 107/75 99 05/30/19 18:10 125 H 23 112/72 98 05/30/19 18:00 124 H 20 112/72 98 05/30/19 17:50 125 H 39 H 107/75 98 05/30/19 17:40 124 H 27 H 115/72 96 05/30/19 17:30 124 H 30 H 115/72 97 05/30/19 17:20 122 H 28 H 114/78 95 05/30/19 17:10 125 H 26 H 115/81 93 05/30/19 17:00 127 H 27 H 115/81 96 05/30/19 16:50 121 H 33 H 114/78 96 05/30/19 16:40 121 H 24 115/77 96 05/30/19 16:30 124 H 29 H 115/77 95 05/30/19 16:20 125 H 24 115/77 95 05/30/19 16:10 123 H 29 H 142/87 100 05/30/19 16:00 99.7 F H 126 H 125 H 28 H 142/87 96 05/30/19 15:50 129 H 31 H 142/87 96 05/30/19 15:40 127 H 25 H 132/86 95 05/30/19 15:30 126 H 30 H 128/92 95 05/30/19 15:20 122 H 33 H 128/92 97 05/30/19 15:10 124 H 33 H 143/77 97 05/30/19 15:00 124 H 36 H 143/77 91 05/30/19 14:50 123 H 32 H 143/77 98 05/30/19 14:46 125 H 21 05/30/19 12:00 118 H 25 H 108/72 92 - Labs and Meds Coagulation 05/30/19 05/30/19 Range/Units 13:47 16:36 PT 14.0 14.3 (12.2-14.9) Sec. INR 1.11 1.14 H (0.87-1.13) APTT 73.6 H* > 240.0 H* (24.2-36.6) Sec. CBC 05/30/19 05/31/19 Range/Units 13:47 04:25 WBC 12.8 H 12.7 H (4.5-11.0) K/mm3 RBC 5.08 H 4.69 (3.65-5.03) M/mm3 Hgb 14.4 13.2 (11.8-15.2) gm/dl Hct 43.9 D 39.9 (35.5-45.6) % Plt Count 336 249 (140-440) K/mm3 Lymph # 1.6 (1.2-5.4) K/mm3 [place] # 0.8 (0.0-0.8) K/mm3 Eos # 0.0 (0.0-0.4) K/mm3 Baso # 0.1 (0.0-0.1) K/mm3 Comprehensive Metabolic Panel 05/30/19 05/31/19 Range/Units 13:47 04:25 Sodium 141 137 (137-145) mmol/L Potassium 4.0 3.5 L (3.6-5.0) mmol/L Chloride 99.4 98.9 (98-107) mmol/L Carbon Dioxide 23 22 (22-30) mmol/L BUN 31 H 29 H (9-20) mg/dL Creatinine 2.0 H 1.7 H (0.8-1.5) mg/dL Glucose 149 H 131 H (75-100) mg/dL Calcium 9.7 9.1 (8.4-10.2) mg/dL
[2019-05-31] MEDS: NACL 0.9% 1000 ML 1,000 ML IV SCH (12:18)
[2019-05-31] MEDS: HEPARIN/ 0.45% NACL-25,000 UNIT/500 ML 25,000 UNIT/500 ML BAG IV SCH (12:19)
--- NOTE | 2019-05-31 12:37 | Progress Note ---
Assessment and Plan Assessment and plan: Acute RT LE DVT/PE with right heart strain -S/P thrombolysis of bilateral pulmonary arteries on 05/30 -Venous duplex positive for RT superficial femoral vein stenosis -VQ scan reported as high probability for PE. Patient was unable to obtain CTA chest due to renal impairment -Continue heparin drip -Vascular surgery following Elevated troponin with abnormal EKG suggestive of acute lateral ischemia. -Differential diagnosis include acute lateral ischemia versus chronic abnormal ST changes of LVH exacerbated by ongoing tachycardia. -Serial troponin level slightly trended down. -Cont heparin drip, BB and statin -Echo pending -Cardiology planning for further cardiac ischemic workup when patient is clinically stable from his acute PE Acute respiratory failure with hypoxia -Likely secondary to the acute PE -Continue oxygen supplementation via NC as needed ERLIN -Probably vasomotor nephropathy -Cr level improving on IV fluid, will monitor SIRS -Likely due to noninfectious cause -Chest x-ray negative, urinalysis likely contaminated since urine culture is neg so far -Wbc level slightly trended down, we'll monitor. Patient is afebrile. Elevated BNP -Echocardiogram to assess EF and valvular function pending Hypokalemia -Repleted, will monitor level -We will check magnesium level Hypertension -Controlled Sinus tachycardia -Continue Lopressor, will monitor HLD -Continue statin Mild hypercalcemia -Resolved Hyperglycemia -Hemoglobin A1c level pending Disposition: Continue treatment in the ICU Time spent: 38 minutes History Interval history: Patient continues to complain of midsternal chest pain and shortness of breath. Hospitalist Physical - Constitutional Vitals: Temp Pulse Resp BP Pulse Ox 99.1 F 102 H 24 123/79 97 05/31/19 12:00 05/31/19 08:45 05/31/19 08:45 05/31/19 08:45 05/31/19 08:45 General appearance: Present: no acute distress, well-nourished - EENT Eyes: Present: PERRL, EOM intact ENT: hearing intact, clear oral mucosa - Neck Neck: Present: supple - Respiratory Respiratory effort: normal Respiratory: bilateral: CTA - Cardiovascular Rhythm: regular (with tachycardia) Heart Sounds: Present: S1 & S2 - Extremities Extremities: No edema - Abdominal General gastrointestinal: soft, non-tender, non-distended, normal bowel sounds - Integumentary Integumentary: Present: clear, warm, dry - Psychiatric Psychiatric: appropriate mood/affect - Neurologic Neurologic: CNII-XII intact Results - Labs CBC & Chem 7: 05/31/19 04:25 05/31/19 04:25 Labs: Laboratory Last Values WBC 12.7 K/mm3 (4.5-11.0) H 05/31/19 04:25 RBC 4.69 M/mm3 (3.65-5.03) 05/31/19 04:25 Hgb 13.2 gm/dl (11.8-15.2) 05/31/19 04:25 Hct 39.9 % (35.5-45.6) 05/31/19 04:25 MCV 85 fl (84-94) 05/31/19 04:25 MCH 28 pg (28-32) 05/31/19 04:25 MCHC 33 % (32-34) 05/31/19 04:25 RDW 15.3 % (13.2-15.2) H 05/31/19 04:25 Plt Count 249 K/mm3 (140-440) 05/31/19 04:25 Lymph % (Auto) 12.8 % (13.4-35.0) L 05/30/19 13:47 [place] % (Auto) 6.6 % (0.0-7.3) 05/30/19 13:47 Eos % (Auto) 0.0 % (0.0-4.3) 05/30/19 13:47 Baso % (Auto) 0.5 % (0.0-1.8) 05/30/19 13:47 Lymph # 1.6 K/mm3 (1.2-5.4) 05/30/19 13:47 [place] # 0.8 K/mm3 (0.0-0.8) 05/30/19 13:47 Eos # 0.0 K/mm3 (0.0-0.4) 05/30/19 13:47 Baso # 0.1 K/mm3 (0.0-0.1) 05/30/19 13:47 Seg Neutrophils % 80.1 % (40.0-70.0) H 05/30/19 13:47 Seg Neutrophils # 10.3 K/mm3 (1.8-7.7) H 05/30/19 13:47 PT 14.3 Sec. (12.2-14.9) 05/30/19 16:36 INR 1.14 (0.87-1.13) H 05/30/19 16:36 APTT > 240.0 Sec. (24.2-36.6) H* 05/30/19 16:36 550 mg/dl (211-480) H 05/30/19 16:36 Sodium 137 mmol/L (137-145) 05/31/19 04:25 Potassium 3.5 mmol/L (3.6-5.0) L 05/31/19 04:25 Chloride 98.9 mmol/L (98-107) 05/31/19 04:25 Carbon Dioxide 22 mmol/L (22-30) 05/31/19 04:25 20 mmol/L 05/31/19 04:25 BUN 29 mg/dL (9-20) H 05/31/19 04:25 1.7 mg/dL (0.8-1.5) H 05/31/19 04:25 Estimated GFR 49 ml/min 05/31/19 04:25 17 % 05/31/19 04:25 Glucose 131 mg/dL (75-100) H 05/31/19 04:25 POC Glucose 112 (70-105) H 05/31/19 12:13 5.7 % (4-6) 05/31/19 04:25 Calcium 9.1 mg/dL (8.4-10.2) 05/31/19 04:25 0.146 ng/mL (0.00-0.029) H* 05/30/19 13:47 NT-Pro-B Natriuret Pep 6186 pg/mL (0-900) H 05/30/19 07:18 Triglycerides 117 mg/dL (2-149) 05/30/19 07:18 Cholesterol 202 mg/dL (50-199) H 05/30/19 07:18 141 mg/dL (50-130) H 05/30/19 07:18 61 mg/dL (40-59) H 05/30/19 07:18 3.31 % 05/30/19 07:18 Yellow (Yellow) 05/30/19 19:12 Clear (Clear) 05/30/19 19:12 5.0 (5.0-7.0) 05/30/19 19:12 Ur Specific [place] 1.047 (1.003-1.030) H 05/30/19 19:12 30 mg/dl mg/dL (Negative) 05/30/19 19:12 Neg mg/dL (Negative) 05/30/19 19:12 20 mg/dL (Negative) 05/30/19 19:12 Mod (Negative) 05/30/19 19:12 Neg (Negative) 05/30/19 19:12 Neg (Negative) 05/30/19 19:12 < 2.0 mg/dL (<2.0) 05/30/19 19:12 Ur Leukocyte Esterase Neg (Negative) 05/30/19 19:12 10.0 /HPF (0.0-6.0) H 05/30/19 19:12 12.0 /HPF (0.0-6.0) 05/30/19 19:12 U Epithel Cells (Auto) < 1.0 /HPF (0-13.0) 05/30/19 19:12 2+ /HPF 05/30/19 19:12 Blood Type O POSITIVE 05/30/19 13:47 Antibody Screen Negative 05/30/19 13:47 Active Medications - Current Medications Current Medications: Generic Name Dose Route Start Last Admin Trade Name Freq PRN Reason Stop Dose Admin Acetaminophen 650 mg 05/30/19 08:04 Tylenol PO Q4H PRN Pain MILD(1-3)/Fever >100.5/BUSTOS Acetaminophen/Hydrocodone Bitart 2 each 05/30/19 08:04 [place] 5/325 PO Q6H PRN Pain, Moderate (4-6) Aspirin 81 mg 05/31/19 10:00 05/31/19 09:26 Halfprin Ec PO 81 mg QDAY ANKUSH Administration Atorvastatin Calcium 40 mg 05/30/19 22:00 05/30/19 21:39 Lipitor PO 40 mg QHS ANKUSH Administration Guaifenesin 200 mg 05/30/19 23:06 05/31/19 07:57 Robitussin PO 200 mg Q4H PRN Administration Cough Sodium Chloride 1,000 mls @ 75 mls/hr 05/30/19 12:00 05/31/19 12:18 Nacl 0.9% 1000 Ml IV 75 mls/hr DIRECT ANKUSH Administration Heparin Sodium/Sodium Chloride 25,000 unit in 500 mls @ 21 mls/hr 05/31/19 13:00 05/31/19 12:19 Heparin/ 0.45% Nacl-25,000 Unit/500 Ml IV 1,050 units/hr TITR ANKUSH 21 mls/hr Administration Protocol 1,050 UNITS/HR Ondansetron HCl 4 mg 05/30/19 08:04 Zofran IV Q8H PRN Nausea And Vomiting Sodium Chloride 10 ml 05/30/19 10:00 05/30/19 21:39 Sodium Chloride Flush Syringe 10 Ml IV 10 ml BID ANKUSH Administration Sodium Chloride 10 ml 05/30/19 08:04 Sodium Chloride Flush Syringe 10 Ml IV PRN PRN LINE FLUSH Zolpidem Tartrate 5 mg 05/30/19 08:04 Ambien PO QHS PRN Insomnia
[2019-05-31 12:46] LABS: Hematocrit 41.5 % (35.5-45.6); Hemoglobin 13.5 gm/dl (11.8-15.2)
[2019-05-31] MEDS ORDERED: K-DUR PO ONE (13:00)
[2019-05-31 13:01] LABS: INR 1.3 (0.87-1.13)
[2019-05-31 13:02] LABS: Partial Thromboplastin Time 40.3 Sec. (24.2-36.6)
--- NOTE | 2019-05-31 13:05 | Progress Note ---
Assessment and Plan Patient with treatment and near complete resolution of his pulmonary embolism. He will need to be placed on anticoagulation for at least 6 months. Patient may benefit from further evaluation for hypercoagulable state. Subjective Date of service: 05/31/19 Principal diagnosis: pulmonary embolism Interval history: Patient with a history of subacute massive pulmonary embolism status post placement of thrombolytics catheters yesterday. He was brought down to the cardiac catheterization lab today for removal of the thrombolytics catheters and pulmonary angiography. Pulmonary angiography was performed which demonstrates only trace residual thrombus. The patient complains of chest pain that is improved since presentation, a component of the chest pain likely secondary to the patient's coughing. The patient's shortness of breath has improved but he still gets out of breath with movement. Objective - Constitutional Vitals: Vital Signs - 12hr 05/31/19 05/31/19 05/31/19 01:15 01:30 01:45 Temperature Pulse Rate 110 H 111 H 111 H Pulse Rate [ From Monitor] Respiratory 20 21 22 Rate Blood Pressure 99/78 104/83 107/72 O2 Sat by Pulse 98 98 95 Oximetry 05/31/19 05/31/19 05/31/19 02:00 02:15 02:30 Temperature Pulse Rate 111 H 109 H 110 H Pulse Rate [ From Monitor] Respiratory 21 24 21 Rate Blood Pressure 96/76 97/79 102/72 O2 Sat by Pulse 96 95 Oximetry 05/31/19 05/31/19 05/31/19 02:45 03:00 03:15 Temperature Pulse Rate 111 H 111 H 107 H Pulse Rate [ From Monitor] Respiratory 27 H 27 H 28 H Rate Blood Pressure 106/82 106/78 100/79 O2 Sat by Pulse 95 96 95 Oximetry 05/31/19 05/31/19 05/31/19 03:30 03:40 03:45 Temperature 99.7 F H Pulse Rate 109 H 107 H Pulse Rate [ From Monitor] Respiratory 23 28 H Rate Blood Pressure 109/78 108/80 O2 Sat by Pulse 93 96 Oximetry 05/31/19 05/31/19 05/31/19 04:00 04:15 04:30 Temperature Pulse Rate 108 H 114 H 110 H Pulse Rate [ 108 H From Monitor] Respiratory 21 33 H 27 H Rate Blood Pressure 102/68 121/84 126/77 O2 Sat by Pulse 94 93 94 Oximetry 05/31/19 05/31/19 05/31/19 04:45 05:00 05:16 Temperature Pulse Rate 106 H 105 H 114 H Pulse Rate [ From Monitor] Respiratory 27 H 20 28 H Rate Blood Pressure 117/76 102/77 111/67 O2 Sat by Pulse 95 100 Oximetry 05/31/19 05/31/19 05/31/19 05:30 05:45 06:00 Temperature Pulse Rate 105 H 104 H 104 H Pulse Rate [ From Monitor] Respiratory 21 22 19 Rate Blood Pressure 110/76 118/81 112/78 O2 Sat by Pulse 96 93 97 Oximetry 05/31/19 05/31/19 05/31/19 06:15 06:30 06:45 Temperature Pulse Rate 107 H 104 H 109 H Pulse Rate [ From Monitor] Respiratory 25 H 24 31 H Rate Blood Pressure 126/86 115/70 121/87 O2 Sat by Pulse 95 96 98 Oximetry 05/31/19 05/31/19 05/31/19 07:00 07:15 07:30 Temperature Pulse Rate 106 H 105 H 104 H Pulse Rate [ From Monitor] Respiratory 25 H 27 H 21 Rate Blood Pressure 111/69 111/77 103/79 O2 Sat by Pulse 96 96 99 Oximetry 05/31/19 05/31/19 05/31/19 07:45 08:00 08:15 Temperature 99.5 F Pulse Rate 106 H 101 H 106 H Pulse Rate [ 101 H From Monitor] Respiratory 29 H 29 H 28 H Rate Blood Pressure 132/93 138/87 150/91 O2 Sat by Pulse 93 99 97 Oximetry 05/31/19 05/31/19 05/31/19 08:19 08:30 08:45 Temperature Pulse Rate 107 H 102 H Pulse Rate [ From Monitor] Respiratory 31 H 24 Rate Blood Pressure 123/86 123/79 O2 Sat by Pulse 98 100 97 Oximetry 05/31/19 05/31/19 05/31/19 09:00 09:15 09:30 Temperature Pulse Rate 102 H 103 H 100 H Pulse Rate [ From Monitor] Respiratory 25 H 25 H 20 Rate Blood Pressure 127/82 137/90 112/85 O2 Sat by Pulse 99 98 Oximetry 05/31/19 05/31/19 05/31/19 09:45 10:00 11:54 Temperature Pulse Rate 102 H 102 H 99 H Pulse Rate [ From Monitor] Respiratory 26 H 26 H 20 Rate Blood Pressure 140/94 142/88 136/88 O2 Sat by Pulse 96 97 100 Oximetry 05/31/19 05/31/19 05/31/19 12:00 12:15 12:30 Temperature 99.1 F Pulse Rate 99 H 97 H 98 H Pulse Rate [ From Monitor] Respiratory 18 16 23 Rate Blood Pressure 130/84 139/91 124/84 O2 Sat by Pulse 96 97 99 Oximetry 05/31/19 12:46 Temperature Pulse Rate 98 H Pulse Rate [ From Monitor] Respiratory 19 Rate Blood Pressure 109/85 O2 Sat by Pulse 98 Oximetry General appearance: Present: mild distress - EENT Eyes: EOM intact ENT: hearing intact - Neck Neck: supple, normal ROM - Respiratory Respiratory effort: normal - Breasts Breasts: deferred - Cardiovascular Rhythm: regular Extremities: no ischemia - Gastrointestinal General gastrointestinal: Present: deferred Rectal Exam: deferred - Genitourinary Male genitourinary: deferred - Neurologic Neurologic: moves all extremities - Psychiatric Psychiatric: appropriate mood/affect, cooperative - Labs CBC & Chem 7: 05/31/19 12:32 05/31/19 04:25 Labs: Abnormal lab results 05/30/19 05/30/19 05/30/19 Range/Units 13:47 13:47 13:47 WBC 12.8 H (4.5-11.0) K/mm3 RBC 5.08 H (3.65-5.03) M/mm3 RDW 15.5 H (13.2-15.2) % Lymph % (Auto) 12.8 L (13.4-35.0) % Seg Neutrophils % 80.1 H (40.0-70.0) % Seg Neutrophils # 10.3 H (1.8-7.7) K/mm3 PT (12.2-14.9) Sec. INR (0.87-1.13) APTT 73.6 H* (24.2-36.6) Sec. Fibrinogen 512 H (211-480) mg/dl Potassium (3.6-5.0) mmol/L BUN (9-20) mg/dL Creatinine (0.8-1.5) mg/dL Glucose (75-100) mg/dL POC Glucose (70-105) Troponin T 0.146 H* (0.00-0.029) ng/mL Ur Specific [place] (1.003-1.030) Urine WBC (Auto) (0.0-6.0) /HPF 05/30/19 05/30/19 05/30/19 Range/Units 13:47 16:36 19:12 WBC (4.5-11.0) K/mm3 RBC (3.65-5.03) M/mm3 RDW (13.2-15.2) % Lymph % (Auto) (13.4-35.0) % Seg Neutrophils % (40.0-70.0) % Seg Neutrophils # (1.8-7.7) K/mm3 PT (12.2-14.9) Sec. INR 1.14 H (0.87-1.13) APTT > 240.0 H* (24.2-36.6) Sec. Fibrinogen 550 H (211-480) mg/dl Potassium (3.6-5.0) mmol/L BUN 31 H (9-20) mg/dL Creatinine 2.0 H (0.8-1.5) mg/dL Glucose 149 H (75-100) mg/dL POC Glucose (70-105) Troponin T (0.00-0.029) ng/mL Ur Specific [place] 1.047 H (1.003-1.030) Urine WBC (Auto) 10.0 H (0.0-6.0) /HPF 05/31/19 05/31/19 05/31/19 Range/Units 00:42 04:25 04:25 WBC 12.7 H (4.5-11.0) K/mm3 RBC (3.65-5.03) M/mm3 RDW 15.3 H (13.2-15.2) % Lymph % (Auto) (13.4-35.0) % Seg Neutrophils % (40.0-70.0) % Seg Neutrophils # (1.8-7.7) K/mm3 PT 15.9 H (12.2-14.9) Sec. INR 1.30 H (0.87-1.13) APTT 40.3 H (24.2-36.6) Sec. Fibrinogen (211-480) mg/dl Potassium 3.5 L (3.6-5.0) mmol/L BUN 29 H (9-20) mg/dL Creatinine 1.7 H (0.8-1.5) mg/dL Glucose 131 H (75-100) mg/dL POC Glucose (70-105) Troponin T (0.00-0.029) ng/mL Ur Specific [place] (1.003-1.030) Urine WBC (Auto) (0.0-6.0) /HPF 05/31/19 Range/Units 12:13 WBC (4.5-11.0) K/mm3 RBC (3.65-5.03) M/mm3 RDW (13.2-15.2) % Lymph % (Auto) (13.4-35.0) % Seg Neutrophils % (40.0-70.0) % Seg Neutrophils # (1.8-7.7) K/mm3 PT (12.2-14.9) Sec. INR (0.87-1.13) APTT (24.2-36.6) Sec. Fibrinogen (211-480) mg/dl Potassium (3.6-5.0) mmol/L BUN (9-20) mg/dL Creatinine (0.8-1.5) mg/dL Glucose (75-100) mg/dL POC Glucose 112 H (70-105) Troponin T (0.00-0.029) ng/mL Ur Specific [place] (1.003-1.030) Urine WBC (Auto) (0.0-6.0) /HPF Medications & Allergies - Medications Allergies/Adverse Reactions: Allergies No Known Allergies Allergy (Unverified 05/30/19 07:05) Home Medications: Home Medications Medication Instructions Recorded Confirmed Last Taken Type Atenolol/Chlorthalidone [Tenoretic 1 tab PO QDAY 05/30/19 05/30/19 Unknown History 100-25] Lisinopril [Zestril TAB] 40 mg PO QDAY 05/30/19 05/30/19 Unknown History amLODIPine [Norvasc] 10 mg PO DAILY 05/30/19 05/30/19 Unknown History Active Medications: Generic Name Dose Route Start Last Admin Trade Name Freq PRN Reason Stop Dose Admin Acetaminophen 650 mg 05/30/19 08:04 Tylenol PO Q4H PRN Pain MILD(1-3)/Fever >100.5/BUSTOS Acetaminophen/Hydrocodone Bitart 2 each 05/30/19 08:04 [place] 5/325 PO Q6H PRN Pain, Moderate (4-6) Aspirin 81 mg 05/31/19 10:00 05/31/19 09:26 Halfprin Ec PO 81 mg QDAY ANKUSH Administration Atorvastatin Calcium 40 mg 05/30/19 22:00 05/30/19 21:39 Lipitor PO 40 mg QHS ANKUSH Administration Guaifenesin 200 mg 05/30/19 23:06 05/31/19 07:57 Robitussin PO 200 mg Q4H PRN Administration Cough Sodium Chloride 1,000 mls @ 75 mls/hr 05/30/19 12:00 05/31/19 12:18 Nacl 0.9% 1000 Ml IV 75 mls/hr DIRECT ANKUSH Administration Heparin Sodium/Sodium Chloride 25,000 unit in 500 mls @ 21 mls/hr 05/31/19 13:00 05/31/19 12:19 Heparin/ 0.45% Nacl-25,000 Unit/500 Ml IV 1,050 units/hr TITR ANKUSH 21 mls/hr Administration Protocol 1,050 UNITS/HR Ondansetron HCl 4 mg 05/30/19 08:04 Zofran IV Q8H PRN Nausea And Vomiting Sodium Chloride 10 ml 05/30/19 10:00 05/30/19 21:39 Sodium Chloride Flush Syringe 10 Ml IV 10 ml BID ANKUSH Administration Sodium Chloride 10 ml 05/30/19 08:04 Sodium Chloride Flush Syringe 10 Ml IV PRN PRN LINE FLUSH Zolpidem Tartrate 5 mg 05/30/19 08:04 Ambien PO QHS PRN Insomnia
--- NOTE | 2019-05-31 13:11 | Operative Report ---
Operative Report Operative Report: Exam: Thrombolytics catheter removal, bilateral pulmonary angiography Clinical indication: Patient with subacute massive pulmonary embolism status post placement of thrombolytics catheter Date: 05/31/2019 Procedure: Following an explanation of the risks, benefits and alternatives; written informed consent was obtained. The patient was brought to the anterior gapping suite and placed in prone position on the examination table. His right groin and indwelling sheaths were prepped and draped in the usual sterile fashion. Additional 1% lidocaine was used for anesthesia at the sheath insertion sites. The infusion wire of the thrombolytics catheter was removed. A 0.035 guidewire was advanced through the thrombolytics catheter and the thrombolytics catheter removed. The sheath was upsized to an 8 [place] sheath over the guidewire. An 8 [place] MPA catheter was then advanced over the guidewire into the left pulmonary arteries. Imaging was obtained of the left lower lobe pulmonary arteries which demonstrated no significant residual thrombus. The catheter was withdrawn somewhat proximally and additional imaging obtained. No hemodynamically significant embolus is present within the upper lobe or lower lobe pulmonary arteries of the left lung. The catheter was withdrawn proximally and additional pulmonary angiography performed from the left main pulmonary artery. Left main pulmonary artery is widely patent. The catheter was then withdrawn over a guidewire. The guidewire was removed. The infusion wire was inserted through the thrombolytics catheter in the right lung. A 0.035 guidewire was advanced into the right lung and the thrombolytics catheter removed. The MPA catheter would not advance from the right secondary to tortuosity and a 5 [place] vertebral catheter was therefore used and advanced over the guidewire. The 5 [place] catheter was placed in the lower lobe pulmonary arteries, distal and proximal left mainstem pulmonary arteries on the right. Angiography was performed which demonstrates no significant thrombus. The catheter was removed over a guidewire. Both sheaths were removed and hemostasis achieved using manual compression. A sterile compression dressing was applied. The patient tolerated the procedure well. There were no immediate post procedure complications. Conscious sedation was provided by radiologic nursing. Continuous cardiopulmonary monitoring was utilized. Impression: 1) Removal of thrombolytics catheters placed in bilateral lower lobe pulmonary arteries. 2) Pulmonary angiography performed through the left lower lobe, left mainstem pulmonary artery, right lower lobe and right mainstem pulmonary arteries demonstrating no significant residual thrombus.
[2019-05-31] MEDS: SODIUM CHLORIDE FLUSH SYRINGE 10 ML IV SCH ×2 (20:26→21:33)
[2019-06-01] MEDS: NACL 0.9% 1000 ML 1,000 ML IV SCH (02:04)
[2019-06-01 03:56] LABS: Hemoglobin 12.4 gm/dl (11.8-15.2); Mean Corpuscular HGB Conc 34 % (32-34); Mean Corpuscular Volume 85 fl (84-94); Platelet Count 227 K/mm3 (140-440); Red Blood Count 4.21 M/mm3 (3.65-5.03); Red Cell Distribution Width 15.2 % (13.2-15.2)
[2019-06-01 04:26] LABS: BUN/Creatinine Ratio 20; Blood Urea Nitrogen 24 mg/dL (9-20); Calcium 8.3 mg/dL (8.4-10.2); Hemolysis Index 3
[2019-06-01] MEDS ORDERED: K-DUR PO ONE (08:00)
[2019-06-01] MEDS ORDERED: MAGNESIUM SULFATE 2GM/50ML 2 GM/50 ML BAG IV ONE (08:30)
[2019-06-01] MEDS: HALFPRIN EC PO SCH (09:12)
[2019-06-01] MEDS: SODIUM CHLORIDE FLUSH SYRINGE 10 ML IV SCH ×2 (09:21→21:28)
--- NOTE | 2019-06-01 09:46 | Progress Note ---
Assessment and Plan Assessment and plan: Acute RT LE DVT/PE with right heart strain -S/P thrombolysis of bilateral pulmonary arteries on 05/30 -S/p thrombolytics catheter removal and bilateral pulmonary angiography on 05/31 -Venous duplex positive for RT superficial femoral vein stenosis -VQ scan reported as high probability for PE. Patient was unable to obtain CTA chest due to renal impairment -Continue heparin drip -Vascular surgery following Elevated troponin with abnormal EKG suggestive of acute lateral ischemia. -Differential diagnosis include acute lateral ischemia versus chronic abnormal ST changes of LVH exacerbated by ongoing tachycardia. -Serial troponin level slightly trended down. -Cont heparin drip, BB and statin -Echo pending -Cardiology planning for further cardiac ischemic workup when patient is clinically stable from his acute PE Acute respiratory failure with hypoxia -Likely secondary to the acute PE -Continue oxygen supplementation via NC as needed ERLIN -Probably vasomotor nephropathy -Cr level trended down, IVF d/jany. SIRS -Likely due to noninfectious cause -Chest x-ray negative, urinalysis likely contaminated since urine culture is neg so far -Wbc level trended down. New systolic HF with EF of 35-40% -No acute exacerbation -Cont BB, ACEI added Hypokalemia -Improving on repletion, will monitor level Hypomagnesemia -On repletion, will monitor Hypertension -Controlled on med Sinus tachycardia -HR improved on Lopressor HLD -Continue statin Mild hypercalcemia -Resolved Hyperglycemia -Hemoglobin A1c level: 5.7 Disposition: Pt may be transferred out of the ICU today if ok by vascular and pulmonology Time spent: 35 minutes History Interval history: Patient reports feeling better today. He has no new complaints. He denies current chest pain or shortness of breath. Hospitalist Physical - Constitutional Vitals: Temp Pulse Resp BP Pulse Ox 98.5 F 98 H 20 133/96 96 06/01/19 07:54 06/01/19 09:00 06/01/19 09:00 06/01/19 09:00 06/01/19 09:00 General appearance: Present: no acute distress - EENT Eyes: Present: PERRL, EOM intact ENT: hearing intact, clear oral mucosa - Neck Neck: Present: supple - Respiratory Respiratory effort: normal Respiratory: bilateral: CTA - Cardiovascular Rhythm: regular Heart Sounds: Present: S1 & S2 - Extremities Extremities: No edema - Abdominal General gastrointestinal: soft, non-tender, non-distended, normal bowel sounds - Integumentary Integumentary: Present: clear, warm, dry - Psychiatric Psychiatric: appropriate mood/affect - Neurologic Neurologic: CNII-XII intact Results - Labs CBC & Chem 7: 06/01/19 02:45 06/01/19 02:45 Labs: Laboratory Last Values WBC 9.7 K/mm3 (4.5-11.0) 06/01/19 02:45 RBC 4.21 M/mm3 (3.65-5.03) 06/01/19 02:45 Hgb 12.4 gm/dl (11.8-15.2) 06/01/19 02:45 Hct 36.0 % (35.5-45.6) 06/01/19 02:45 MCV 85 fl (84-94) 06/01/19 02:45 MCH 29 pg (28-32) 06/01/19 02:45 MCHC 34 % (32-34) 06/01/19 02:45 RDW 15.2 % (13.2-15.2) 06/01/19 02:45 Plt Count 227 K/mm3 (140-440) 06/01/19 02:45 Lymph % (Auto) 12.8 % (13.4-35.0) L 05/30/19 13:47 [place] % (Auto) 6.6 % (0.0-7.3) 05/30/19 13:47 Eos % (Auto) 0.0 % (0.0-4.3) 05/30/19 13:47 Baso % (Auto) 0.5 % (0.0-1.8) 05/30/19 13:47 Lymph # 1.6 K/mm3 (1.2-5.4) 05/30/19 13:47 [place] # 0.8 K/mm3 (0.0-0.8) 05/30/19 13:47 Eos # 0.0 K/mm3 (0.0-0.4) 05/30/19 13:47 Baso # 0.1 K/mm3 (0.0-0.1) 05/30/19 13:47 Seg Neutrophils % 80.1 % (40.0-70.0) H 05/30/19 13:47 Seg Neutrophils # 10.3 K/mm3 (1.8-7.7) H 05/30/19 13:47 PT 15.9 Sec. (12.2-14.9) H 05/31/19 00:42 INR 1.30 (0.87-1.13) H 05/31/19 00:42 APTT 40.3 Sec. (24.2-36.6) H 05/31/19 00:42 550 mg/dl (211-480) H 05/30/19 16:36 Heparin Anti-Xa Level 0.21 U.I./ml (0.3-0.7) L 06/01/19 02:45 Sodium 137 mmol/L (137-145) 06/01/19 02:45 Potassium 3.6 mmol/L (3.6-5.0) 06/01/19 02:45 Chloride 103.2 mmol/L (98-107) 06/01/19 02:45 Carbon Dioxide 22 mmol/L (22-30) 06/01/19 02:45 15 mmol/L 06/01/19 02:45 BUN 24 mg/dL (9-20) H 06/01/19 02:45 1.2 mg/dL (0.8-1.5) 06/01/19 02:45 Estimated GFR > 60 ml/min 06/01/19 02:45 20 % 06/01/19 02:45 Glucose 129 mg/dL (75-100) H 06/01/19 02:45 POC Glucose 114 (70-105) H 05/31/19 18:31 5.7 % (4-6) 05/31/19 04:25 Calcium 8.3 mg/dL (8.4-10.2) L 06/01/19 02:45 Magnesium 1.40 mg/dL (1.7-2.3) L 06/01/19 02:45 0.146 ng/mL (0.00-0.029) H* 05/30/19 13:47 NT-Pro-B Natriuret Pep 6186 pg/mL (0-900) H 05/30/19 07:18 Triglycerides 117 mg/dL (2-149) 05/30/19 07:18 Cholesterol 202 mg/dL (50-199) H 05/30/19 07:18 141 mg/dL (50-130) H 05/30/19 07:18 61 mg/dL (40-59) H 05/30/19 07:18 3.31 % 05/30/19 07:18 Yellow (Yellow) 05/30/19 19:12 Clear (Clear) 05/30/19 19:12 5.0 (5.0-7.0) 05/30/19 19:12 Ur Specific [place] 1.047 (1.003-1.030) H 05/30/19 19:12 30 mg/dl mg/dL (Negative) 05/30/19 19:12 Neg mg/dL (Negative) 05/30/19 19:12 20 mg/dL (Negative) 05/30/19 19:12 Mod (Negative) 05/30/19 19:12 Neg (Negative) 05/30/19 19:12 Neg (Negative) 05/30/19 19:12 < 2.0 mg/dL (<2.0) 05/30/19 19:12 Ur Leukocyte Esterase Neg (Negative) 05/30/19 19:12 10.0 /HPF (0.0-6.0) H 05/30/19 19:12 12.0 /HPF (0.0-6.0) 05/30/19 19:12 U Epithel Cells (Auto) < 1.0 /HPF (0-13.0) 05/30/19 19:12 2+ /HPF 05/30/19 19:12 Blood Type O POSITIVE 05/30/19 13:47 Antibody Screen Negative 05/30/19 13:47 Active Medications - Current Medications Current Medications: Generic Name Dose Route Start Last Admin Trade Name Freq PRN Reason Stop Dose Admin Acetaminophen 650 mg 05/30/19 08:04 Tylenol PO Q4H PRN Pain MILD(1-3)/Fever >100.5/BUSTOS Acetaminophen/Hydrocodone Bitart 2 each 05/30/19 08:04 [place] 5/325 PO Q6H PRN Pain, Moderate (4-6) Aspirin 81 mg 05/31/19 10:00 06/01/19 09:12 Halfprin Ec PO 81 mg QDAY ANKUSH Administration Atorvastatin Calcium 40 mg 05/30/19 22:00 05/31/19 21:33 Lipitor PO 40 mg QHS ANKUSH Administration Guaifenesin 200 mg 05/30/19 23:06 05/31/19 07:57 Robitussin PO 200 mg Q4H PRN Administration Cough Sodium Chloride 1,000 mls @ 75 mls/hr 05/30/19 12:00 06/01/19 02:04 Nacl 0.9% 1000 Ml IV 75 mls/hr DIRECT ANKUSH Administration Heparin Sodium/Sodium Chloride 25,000 unit in 500 mls @ 21 mls/hr 05/31/19 13:00 06/01/19 05:10 Heparin/ 0.45% Nacl-25,000 Unit/500 Ml IV 1,250 units/hr TITR ANKUSH 25 mls/hr Titration Protocol 1,050 UNITS/HR Magnesium Sulfate 2 gm in 50 mls @ 25 mls/hr 06/01/19 08:30 06/01/19 09:11 Magnesium Sulfate 2gm/50ml IV 06/01/19 10:29 25 mls/hr ONCE ONE Administration Ondansetron HCl 4 mg 05/30/19 08:04 Zofran IV Q8H PRN Nausea And Vomiting Sodium Chloride 10 ml 05/30/19 10:00 06/01/19 09:21 Sodium Chloride Flush Syringe 10 Ml IV 10 ml BID ANKUSH Administration Sodium Chloride 10 ml 05/30/19 08:04 Sodium Chloride Flush Syringe 10 Ml IV PRN PRN LINE FLUSH Zolpidem Tartrate 5 mg 05/30/19 08:04 Ambien PO QHS PRN Insomnia
[2019-06-01] MEDS ORDERED: ZESTRIL PO SCH (11:00)
[2019-06-01] MEDS: HEPARIN/ 0.45% NACL-25,000 UNIT/500 ML 25,000 UNIT/500 ML BAG IV SCH (11:22)
--- NOTE | 2019-06-01 12:06 | Progress Note ---
Assessment and Plan Acute DVT with bilateral PE s/p EKOS Chest pain Abnormal ECG suggestive of acute lateral ischemia. differential diagnosis for abnormal ECG include acute lateral ischemia versus chronic abnormal ST changes of LVH exacerbated by ongoing tachycardia versus RV strain from the acute pulmonary embolism Acute renal failure Hypertension An echocardiogram this admission revealed dilated right heart chambers with a decreased left ventricular systolic function, EF 35-40%. Plan: Repeat a 12 lead ECG. Further evaluation with a stress thallium test can be done inpatient or as an outpatient. Subjective Date of service: 06/01/19 Principal diagnosis: pulmonary embolism Interval history: Patient is resting in bed comfortably. He denies chest pain and shortness of breath. Objective Vital Signs Temp Pulse Pulse Resp BP Pulse Ox 06/01/19 11:30 94 H 18 136/82 95 06/01/19 11:22 92 H 119/88 06/01/19 11:15 93 H 13 119/88 97 06/01/19 11:00 95 H 14 128/81 97 06/01/19 10:45 93 H 16 126/88 95 06/01/19 10:30 94 H 16 128/88 96 06/01/19 10:15 98 H 23 128/83 95 06/01/19 10:00 91 H 19 136/85 96 06/01/19 09:45 86 18 145/95 99 06/01/19 09:30 87 18 150/90 98 06/01/19 09:15 88 18 130/100 95 06/01/19 09:00 98 H 20 133/96 96 06/01/19 08:45 75 15 144/91 99 06/01/19 08:30 83 17 139/87 97 06/01/19 08:15 85 15 141/89 97 06/01/19 08:00 86 19 137/91 96 06/01/19 07:54 98.5 F 80 15 06/01/19 07:45 87 16 143/90 97 06/01/19 07:30 88 13 135/86 98 06/01/19 07:15 84 15 139/85 97 06/01/19 07:00 84 14 128/86 97 06/01/19 06:45 86 14 134/81 97 06/01/19 06:30 86 14 126/85 97 06/01/19 06:15 86 15 104/75 97 06/01/19 06:00 84 14 113/74 95 08/01/19 05:58 98.9 F 06/01/19 05:45 81 15 119/71 96 06/01/19 05:30 88 14 114/75 95 06/01/19 05:15 94 H 13 121/82 94 06/01/19 05:00 103 H 12 141/92 91 06/01/19 04:45 95 H 13 129/80 91 06/01/19 04:30 100 H 15 101/71 95 06/01/19 04:15 100 H 15 106/63 94 06/01/19 04:00 98.1 F 92 H 94 H 14 123/73 94 06/01/19 03:45 98 H 13 126/80 93 06/01/19 03:30 101 H 15 117/72 94 06/01/19 03:15 97 H 14 109/61 94 06/01/19 03:00 104 H 15 120/73 94 06/01/19 02:45 99 H 14 121/78 93 06/01/19 02:30 97 H 14 133/87 96 06/01/19 02:15 93 H 18 138/94 95 06/01/19 02:00 93 H 17 128/84 94 06/01/19 01:45 93 H 13 120/86 96 06/01/19 01:30 95 H 13 119/92 97 06/01/19 01:15 92 H 14 115/86 97 06/01/19 01:00 96 H 14 126/87 96 06/01/19 00:45 96 H 18 119/89 93 06/01/19 00:30 89 13 118/82 96 06/01/19 00:15 92 H 16 115/76 97 06/01/19 00:00 94 H 100 H 13 104/74 95 05/31/19 23:45 90 15 108/70 96 05/31/19 23:43 99.0 F 05/31/19 23:37 94 H 19 108/76 98 05/31/19 23:30 96 H 17 98/68 96 05/31/19 23:15 98 H 18 108/76 96 05/31/19 23:00 101 H 15 112/81 95 05/31/19 22:45 98 H 17 107/78 94 05/31/19 22:30 97 H 18 116/74 94 05/31/19 22:15 100 H 16 102/80 95 05/31/19 22:00 96 H 18 110/80 96 05/31/19 21:45 99 H 20 117/74 94 05/31/19 21:30 100 H 20 118/77 96 05/31/19 21:15 100 H 20 111/79 96 05/31/19 21:00 102 H 17 127/84 97 05/31/19 20:45 100 H 17 121/84 97 05/31/19 20:30 103 H 17 114/80 93 05/31/19 20:16 106 H 20 144/73 95 05/31/19 20:00 99.5 F 109 H 102 H 20 140/99 95 05/31/19 19:45 107 H 19 118/74 94 05/31/19 19:30 110 H 21 117/69 92 05/31/19 19:19 96 05/31/19 19:15 110 H 19 106/78 96 05/31/19 19:00 110 H 17 118/73 96 05/31/19 18:45 112 H 18 117/76 93 05/31/19 18:30 116 H 22 116/84 95 05/31/19 18:15 114 H 19 113/71 94 05/31/19 18:00 113 H 17 103/73 94 05/31/19 17:45 108 H 20 126/79 95 05/31/19 17:30 109 H 20 125/79 95 05/31/19 17:16 122 H 33 H 153/86 94 05/31/19 17:00 113 H 22 115/73 96 05/31/19 16:45 109 H 19 131/74 98 05/31/19 16:30 108 H 22 134/84 96 05/31/19 16:15 114 H 24 125/74 96 05/31/19 16:00 99.1 F 110 H 110 H 21 140/77 95 05/31/19 15:45 102 H 20 130/89 94 05/31/19 15:30 110 H 23 150/100 05/31/19 15:15 98 H 20 140/94 97 05/31/19 15:00 99 H 24 118/88 100 05/31/19 14:45 100 H 19 130/80 99 05/31/19 14:30 102 H 18 125/87 99 05/31/19 14:15 96 H 16 116/77 98 05/31/19 14:00 94 H 15 116/83 98 05/31/19 13:45 99 H 22 111/80 97 05/31/19 13:30 104 H 22 135/81 97 05/31/19 13:16 114 H 31 H 154/97 97 05/31/19 13:00 105 H 25 H 109/85 100 05/31/19 12:46 98 H 19 109/85 98 05/31/19 12:30 98 H 23 124/84 99 05/31/19 12:15 97 H 16 139/91 97 05/31/19 12:00 99.1 F 99 H 99 H 18 130/84 96 - Physical Examination General: No Apparent Distress HEENT: Positive: PERRL Neck: Positive: trachea midline Cardiac: Positive: Reg Rate and Rhythm Lungs: Positive: Decreased Breath Sounds Neuro: Positive: Grossly Intact Extremities: Absent: edema - Labs and Meds Coagulation 05/31/19 Range/Units 00:42 PT 15.9 H (12.2-14.9) Sec. INR 1.30 H (0.87-1.13) APTT 40.3 H (24.2-36.6) Sec. CBC 05/31/19 06/01/19 Range/Units 12:32 02:45 WBC 9.7 (4.5-11.0) K/mm3 RBC 4.21 (3.65-5.03) M/mm3 Hgb 13.5 12.4 (11.8-15.2) gm/dl Hct 41.5 36.0 (35.5-45.6) % Plt Count 212 227 (140-440) K/mm3 Comprehensive Metabolic Panel 06/01/19 Range/Units 02:45 Sodium 137 (137-145) mmol/L Potassium 3.6 (3.6-5.0) mmol/L Chloride 103.2 (98-107) mmol/L Carbon Dioxide 22 (22-30) mmol/L BUN 24 H (9-20) mg/dL Creatinine 1.2 (0.8-1.5) mg/dL Glucose 129 H (75-100) mg/dL Calcium 8.3 L (8.4-10.2) mg/dL
--- NOTE | 2019-06-01 13:51 | Progress Note ---
Assessment and Plan 63 y/o male with acute PE and DVT 1. Will transfer out of unit 2. Continue IV heparin until oral anticoagulation is determined 3. By definition he has a PE secondary to DVT from a prolonged road trip. Suggest speaking with heme in regards to how long they would suggest treating. If he follows up with pulmonary as on outpatient we can decide but he doesn't need to see both and technically does not need hypercoag work up. 4. Follow up cardiology recs. Subjective Date of service: 06/01/19 Principal diagnosis: pulmonary embolism Interval history: No acute events. Stable pulm barbour. EKOS out. Sitting up in chair. On room air. Objective Vital Signs - 12hr 06/01/19 06/01/19 06/01/19 02:00 02:15 02:30 Temperature Pulse Rate 93 H 93 H 97 H Pulse Rate [ From Monitor] Respiratory 17 18 14 Rate Blood Pressure 128/84 138/94 133/87 O2 Sat by Pulse 94 95 96 Oximetry 06/01/19 06/01/19 06/01/19 02:45 03:00 03:15 Temperature Pulse Rate 99 H 104 H 97 H Pulse Rate [ From Monitor] Respiratory 14 15 14 Rate Blood Pressure 121/78 120/73 109/61 O2 Sat by Pulse 93 94 94 Oximetry 06/01/19 06/01/19 06/01/19 03:30 03:45 04:00 Temperature 98.1 F Pulse Rate 101 H 98 H 92 H Pulse Rate [ 94 H From Monitor] Respiratory 15 13 14 Rate Blood Pressure 117/72 126/80 123/73 O2 Sat by Pulse 94 93 94 Oximetry 06/01/19 06/01/19 06/01/19 04:15 04:30 04:45 Temperature Pulse Rate 100 H 100 H 95 H Pulse Rate [ From Monitor] Respiratory 15 15 13 Rate Blood Pressure 106/63 101/71 129/80 O2 Sat by Pulse 94 95 91 Oximetry 06/01/19 06/01/19 06/01/19 05:00 05:15 05:30 Temperature Pulse Rate 103 H 94 H 88 Pulse Rate [ From Monitor] Respiratory 12 13 14 Rate Blood Pressure 141/92 121/82 114/75 O2 Sat by Pulse 91 94 95 Oximetry 06/01/19 06/01/19 06/01/19 05:45 05:58 06:00 Temperature 98.9 F Pulse Rate 81 84 Pulse Rate [ From Monitor] Respiratory 15 14 Rate Blood Pressure 119/71 113/74 O2 Sat by Pulse 96 95 Oximetry 06/01/19 06/01/19 06/01/19 06:15 06:30 06:45 Temperature Pulse Rate 86 86 86 Pulse Rate [ From Monitor] Respiratory 15 14 14 Rate Blood Pressure 104/75 126/85 134/81 O2 Sat by Pulse 97 97 97 Oximetry 06/01/19 06/01/19 06/01/19 07:00 07:15 07:30 Temperature Pulse Rate 84 84 88 Pulse Rate [ From Monitor] Respiratory 14 15 13 Rate Blood Pressure 128/86 139/85 135/86 O2 Sat by Pulse 97 97 98 Oximetry 06/01/19 06/01/19 06/01/19 07:45 07:54 08:00 Temperature 98.5 F Pulse Rate 87 86 Pulse Rate [ 80 From Monitor] Respiratory 16 15 19 Rate Blood Pressure 143/90 137/91 O2 Sat by Pulse 97 96 Oximetry 06/01/19 06/01/19 06/01/19 08:15 08:30 08:45 Temperature Pulse Rate 85 83 75 Pulse Rate [ From Monitor] Respiratory 15 17 15 Rate Blood Pressure 141/89 139/87 144/91 O2 Sat by Pulse 97 97 99 Oximetry 06/01/19 06/01/19 06/01/19 09:00 09:15 09:30 Temperature Pulse Rate 98 H 88 87 Pulse Rate [ From Monitor] Respiratory 20 18 18 Rate Blood Pressure 133/96 130/100 150/90 O2 Sat by Pulse 96 95 98 Oximetry 06/01/19 06/01/19 06/01/19 09:45 10:00 10:15 Temperature Pulse Rate 86 91 H 98 H Pulse Rate [ From Monitor] Respiratory 18 19 23 Rate Blood Pressure 145/95 136/85 128/83 O2 Sat by Pulse 99 96 95 Oximetry 06/01/19 06/01/19 06/01/19 10:30 10:45 11:00 Temperature Pulse Rate 94 H 93 H 95 H Pulse Rate [ From Monitor] Respiratory 16 16 14 Rate Blood Pressure 128/88 126/88 128/81 O2 Sat by Pulse 96 95 97 Oximetry 06/01/19 06/01/19 06/01/19 11:15 11:22 11:30 Temperature Pulse Rate 93 H 92 H 94 H Pulse Rate [ From Monitor] Respiratory 13 18 Rate Blood Pressure 119/88 119/88 136/82 O2 Sat by Pulse 97 95 Oximetry 06/01/19 06/01/19 06/01/19 11:45 12:00 12:15 Temperature 99.3 F Pulse Rate 92 H 88 89 Pulse Rate [ 90 From Monitor] Respiratory 17 17 17 Rate Blood Pressure 133/88 142/92 153/85 O2 Sat by Pulse 98 Oximetry 06/01/19 06/01/19 06/01/19 12:30 12:45 13:00 Temperature Pulse Rate 96 H 90 91 H Pulse Rate [ From Monitor] Respiratory 18 19 19 Rate Blood Pressure 139/97 130/91 140/82 O2 Sat by Pulse 100 Oximetry 06/01/19 13:15 Temperature Pulse Rate 90 Pulse Rate [ From Monitor] Respiratory 19 Rate Blood Pressure 127/77 O2 Sat by Pulse Oximetry Constitutional: no acute distress, alert Eyes: non-icteric Neck: supple Effort: normal Ascultation: Bilateral: clear Percussion: Bilateral: not dull Tactile fremitus: Bilateral: normal Cardiovascular: other (sinus tach) Gastrointestinal: normoactive bowel sounds, soft Neurologic: normal mental status, non-focal exam CBC and BMP: 06/01/19 02:45 06/01/19 02:45 ABG, PT/INR, D-dimer: PT/INR, D-dimer PT 15.9 Sec. (12.2-14.9) H 05/31/19 00:42 INR 1.30 (0.87-1.13) H 05/31/19 00:42 Abnormal lab findings: Abnormal Labs 05/30/19 05/30/19 05/30/19 07:18 07:18 07:18 WBC 13.2 H RBC 5.78 H Hgb 16.1 H Hct 50.1 H RDW 15.6 H Lymph % (Auto) [place] # 0.9 H Seg Neutrophils % 72.3 H Seg Neutrophils # 9.6 H PT INR APTT Fibrinogen Heparin Anti-Xa Level Potassium Chloride 97.6 L BUN 29 H Creatinine 2.0 H Glucose 140 H POC Glucose Calcium 10.4 H Magnesium Troponin T 0.202 H* NT-Pro-B Natriuret Pep 6186 H Cholesterol 202 H LDL Cholesterol Direct 141 H HDL Cholesterol 61 H Ur Specific [place] Urine WBC (Auto) 05/30/19 05/30/19 05/30/19 10:00 13:47 13:47 WBC RBC Hgb Hct RDW Lymph % (Auto) [place] # Seg Neutrophils % Seg Neutrophils # PT INR APTT 73.6 H* Fibrinogen 512 H Heparin Anti-Xa Level Potassium Chloride BUN Creatinine Glucose POC Glucose Calcium Magnesium Troponin T 0.159 H* D 0.146 H* NT-Pro-B Natriuret Pep Cholesterol LDL Cholesterol Direct HDL Cholesterol Ur Specific [place] Urine WBC (Auto) 05/30/19 05/30/19 05/30/19 13:47 13:47 16:36 WBC 12.8 H RBC 5.08 H Hgb Hct RDW 15.5 H Lymph % (Auto) 12.8 L [place] # Seg Neutrophils % 80.1 H Seg Neutrophils # 10.3 H PT INR 1.14 H APTT > 240.0 H* Fibrinogen 550 H Heparin Anti-Xa Level Potassium Chloride BUN 31 H Creatinine 2.0 H Glucose 149 H POC Glucose Calcium Magnesium Troponin T NT-Pro-B Natriuret Pep Cholesterol LDL Cholesterol Direct HDL Cholesterol Ur Specific [place] Urine WBC (Auto) 05/30/19 05/31/19 05/31/19 19:12 00:42 04:25 WBC 12.7 H RBC Hgb Hct RDW 15.3 H Lymph % (Auto) [place] # Seg Neutrophils % Seg Neutrophils # PT 15.9 H INR 1.30 H APTT 40.3 H Fibrinogen Heparin Anti-Xa Level Potassium Chloride BUN Creatinine Glucose POC Glucose Calcium Magnesium Troponin T NT-Pro-B Natriuret Pep Cholesterol LDL Cholesterol Direct HDL Cholesterol Ur Specific [place] 1.047 H Urine WBC (Auto) 10.0 H 05/31/19 05/31/19 05/31/19 04:25 12:13 18:31 WBC RBC Hgb Hct RDW Lymph % (Auto) [place] # Seg Neutrophils % Seg Neutrophils # PT INR APTT Fibrinogen Heparin Anti-Xa Level Potassium 3.5 L Chloride BUN 29 H Creatinine 1.7 H Glucose 131 H POC Glucose 112 H 114 H Calcium Magnesium Troponin T NT-Pro-B Natriuret Pep Cholesterol LDL Cholesterol Direct HDL Cholesterol Ur Specific [place] Urine WBC (Auto) 05/31/19 06/01/19 06/01/19 19:41 02:45 02:45 WBC RBC Hgb Hct RDW Lymph % (Auto) [place] # Seg Neutrophils % Seg Neutrophils # PT INR APTT Fibrinogen Heparin Anti-Xa Level < 0.10 L 0.21 L Potassium Chloride BUN 24 H Creatinine Glucose 129 H POC Glucose Calcium 8.3 L Magnesium 1.40 L Troponin T NT-Pro-B Natriuret Pep Cholesterol LDL Cholesterol Direct HDL Cholesterol Ur Specific [place] Urine WBC (Auto) 06/01/19 11:08 WBC RBC Hgb Hct RDW Lymph % (Auto) [place] # Seg Neutrophils % Seg Neutrophils # PT INR APTT Fibrinogen Heparin Anti-Xa Level 0.14 L Potassium Chloride BUN Creatinine Glucose POC Glucose Calcium Magnesium Troponin T NT-Pro-B Natriuret Pep Cholesterol LDL Cholesterol Direct HDL Cholesterol Ur Specific [place] Urine WBC (Auto)
--- NOTE | 2019-06-01 16:25 | Progress Note ---
Assessment and Plan 63 year old male with submassive pulmonary embolism status post thrombolytic therapy doing well. Transitioned from heparin to Eliquis. Proper use discussed. Eliquis 10 mg PO BID x 7 days, then 5 mg PO BID afterwards. Recommend at least 6 months full anticoagulation given severe event. Followup with [facility] for DVT. Subjective Date of service: 06/01/19 Principal diagnosis: pulmonary embolism Interval history: Feels better. SOB better. Doing good. Ambulating without issue. No supplementary oxygen. Pressure dressing removed. Objective - Constitutional Vitals: Vital Signs - 12hr 06/01/19 06/01/19 06/01/19 04:30 04:45 05:00 Temperature Pulse Rate 100 H 95 H 103 H Pulse Rate [ From Monitor] Respiratory 15 13 12 Rate Blood Pressure 101/71 129/80 141/92 O2 Sat by Pulse 95 91 91 Oximetry 06/01/19 06/01/19 06/01/19 05:15 05:30 05:45 Temperature Pulse Rate 94 H 88 81 Pulse Rate [ From Monitor] Respiratory 13 14 15 Rate Blood Pressure 121/82 114/75 119/71 O2 Sat by Pulse 94 95 96 Oximetry 06/01/19 06/01/19 06/01/19 05:58 06:00 06:15 Temperature 98.9 F Pulse Rate 84 86 Pulse Rate [ From Monitor] Respiratory 14 15 Rate Blood Pressure 113/74 104/75 O2 Sat by Pulse 95 97 Oximetry 06/01/19 06/01/19 06/01/19 06:30 06:45 07:00 Temperature Pulse Rate 86 86 84 Pulse Rate [ From Monitor] Respiratory 14 14 14 Rate Blood Pressure 126/85 134/81 128/86 O2 Sat by Pulse 97 97 97 Oximetry 06/01/19 06/01/19 06/01/19 07:15 07:30 07:45 Temperature Pulse Rate 84 88 87 Pulse Rate [ From Monitor] Respiratory 15 13 16 Rate Blood Pressure 139/85 135/86 143/90 O2 Sat by Pulse 97 98 97 Oximetry 06/01/19 06/01/19 06/01/19 07:54 08:00 08:15 Temperature 98.5 F Pulse Rate 86 85 Pulse Rate [ 80 From Monitor] Respiratory 15 19 15 Rate Blood Pressure 137/91 141/89 O2 Sat by Pulse 96 97 Oximetry 06/01/19 06/01/19 06/01/19 08:30 08:45 09:00 Temperature Pulse Rate 83 75 98 H Pulse Rate [ From Monitor] Respiratory 17 15 20 Rate Blood Pressure 139/87 144/91 133/96 O2 Sat by Pulse 97 99 96 Oximetry 06/01/19 06/01/19 06/01/19 09:15 09:30 09:45 Temperature Pulse Rate 88 87 86 Pulse Rate [ From Monitor] Respiratory 18 18 18 Rate Blood Pressure 130/100 150/90 145/95 O2 Sat by Pulse 95 98 99 Oximetry 06/01/19 06/01/19 06/01/19 10:00 10:15 10:30 Temperature Pulse Rate 91 H 98 H 94 H Pulse Rate [ From Monitor] Respiratory 19 23 16 Rate Blood Pressure 136/85 128/83 128/88 O2 Sat by Pulse 96 95 96 Oximetry 06/01/19 06/01/19 06/01/19 10:45 11:00 11:15 Temperature Pulse Rate 93 H 95 H 93 H Pulse Rate [ From Monitor] Respiratory 16 14 13 Rate Blood Pressure 126/88 128/81 119/88 O2 Sat by Pulse 95 97 97 Oximetry 06/01/19 06/01/19 06/01/19 11:22 11:30 11:45 Temperature Pulse Rate 92 H 94 H 92 H Pulse Rate [ From Monitor] Respiratory 18 17 Rate Blood Pressure 119/88 136/82 133/88 O2 Sat by Pulse 95 Oximetry 06/01/19 06/01/19 06/01/19 12:00 12:15 12:30 Temperature 99.3 F Pulse Rate 88 89 96 H Pulse Rate [ 90 From Monitor] Respiratory 17 17 18 Rate Blood Pressure 142/92 153/85 139/97 O2 Sat by Pulse 98 100 Oximetry 06/01/19 06/01/19 06/01/19 12:45 13:00 13:15 Temperature Pulse Rate 90 91 H 90 Pulse Rate [ From Monitor] Respiratory 19 19 19 Rate Blood Pressure 130/91 140/82 127/77 O2 Sat by Pulse Oximetry General appearance: Present: no acute distress - EENT Eyes: EOM intact ENT: hearing intact - Respiratory Respiratory effort: normal Extremities: normal temperature, normal color - Psychiatric Psychiatric: appropriate mood/affect, cooperative - Labs CBC & Chem 7: 06/01/19 02:45 06/01/19 02:45 Labs: Abnormal lab results 05/31/19 05/31/19 06/01/19 Range/Units 18:31 19:41 02:45 Heparin Anti-Xa Level < 0.10 L (0.3-0.7) U.I./ml BUN 24 H (9-20) mg/dL Glucose 129 H (75-100) mg/dL POC Glucose 114 H (70-105) Calcium 8.3 L (8.4-10.2) mg/dL Magnesium 1.40 L (1.7-2.3) mg/dL 06/01/19 06/01/19 Range/Units 02:45 11:08 Heparin Anti-Xa Level 0.21 L 0.14 L (0.3-0.7) U.I./ml BUN (9-20) mg/dL Glucose (75-100) mg/dL POC Glucose (70-105) Calcium (8.4-10.2) mg/dL Magnesium (1.7-2.3) mg/dL Medications & Allergies - Medications Allergies/Adverse Reactions: Allergies No Known Allergies Allergy (Unverified 05/30/19 07:05) Home Medications: Home Medications Medication Instructions Recorded Confirmed Last Taken Type Atenolol/Chlorthalidone [Tenoretic 1 tab PO QDAY 05/30/19 05/30/19 Unknown History 100-25] Lisinopril [Zestril TAB] 40 mg PO QDAY 05/30/19 05/30/19 Unknown History amLODIPine [Norvasc] 10 mg PO DAILY 05/30/19 05/30/19 Unknown History Active Medications: Generic Name Dose Route Start Last Admin Trade Name Kennethq PRN Reason Stop Dose Admin Acetaminophen 650 mg 05/30/19 08:04 Tylenol PO Q4H PRN Pain MILD(1-3)/Fever >100.5/BUSTOS Acetaminophen/Hydrocodone Bitart 2 each 05/30/19 08:04 [place] 5/325 PO Q6H PRN Pain, Moderate (4-6) Apixaban 10 mg 06/01/19 16:22 Eliquis PO 06/07/19 22:01 BID ANKUSH Protocol Apixaban 5 mg 06/08/19 10:00 Eliquis PO BID ANKUSH Protocol Aspirin 81 mg 05/31/19 10:00 06/01/19 09:12 Halfprin Ec PO 81 mg QDAY ANKUSH Administration Atorvastatin Calcium 40 mg 05/30/19 22:00 05/31/19 21:33 Lipitor PO 40 mg QHS ANKUSH Administration Guaifenesin 200 mg 05/30/19 23:06 05/31/19 07:57 Robitussin PO 200 mg Q4H PRN Administration Cough Lisinopril 10 mg 06/01/19 11:00 06/01/19 11:22 Zestril PO 10 mg QDAY ANKUSH Administration Ondansetron HCl 4 mg 05/30/19 08:04 Zofran IV Q8H PRN Nausea And Vomiting Sodium Chloride 10 ml 05/30/19 10:00 06/01/19 09:21 Sodium Chloride Flush Syringe 10 Ml IV 10 ml BID ANKUSH Administration Sodium Chloride 10 ml 05/30/19 08:04 Sodium Chloride Flush Syringe 10 Ml IV PRN PRN LINE FLUSH Zolpidem Tartrate 5 mg 05/30/19 08:04 Ambien PO QHS PRN Insomnia
[2019-06-01] MEDS: ELIQUIS PO SCH ×2 (16:47→21:27)
[2019-06-02 05:36] LABS: Hematocrit 36.9 % (35.5-45.6); Hemoglobin 12.3 gm/dl (11.8-15.2); Mean Corpuscular HGB Conc 33 % (32-34); Mean Corpuscular Volume 86 fl (84-94); Platelet Count 248 K/mm3 (140-440); Red Blood Count 4.28 M/mm3 (3.65-5.03); Red Cell Distribution Width 15.1 % (13.2-15.2)
[2019-06-02 06:00] LABS: BUN/Creatinine Ratio 16; Blood Urea Nitrogen 18 mg/dL (9-20); Calcium 8.7 mg/dL (8.4-10.2); Hemolysis Index 7
[2019-06-02] MEDS ORDERED: ZESTRIL PO SCH (08:33)
--- NOTE | 2019-06-02 09:49 | Progress Note ---
Assessment and Plan Acute DVT with bilateral PE s/p EKOS initiated on eliquis therapy Chest pain Abnormal ECG suggestive of acute lateral ischemia. differential diagnosis for abnormal ECG include acute lateral ischemia versus chronic abnormal ST changes of LVH exacerbated by ongoing tachycardia versus RV strain from the acute pulmonary embolism Acute renal failure Hypertension An echocardiogram this admission revealed dilated right heart chambers with a decreased left ventricular systolic function, EF 35-40%. Continue medical therapy for coronary artery disease and left ventricular systolic dysfunction. Once discharged, patient will follow up with [facility] within 5-7 days. Subjective Date of service: 06/02/19 Principal diagnosis: pulmonary embolism Interval history: Patient is resting in bed comfortably. He denies chest pain and shortness of breath. Objective Vital Signs Temp Pulse Pulse Resp BP Pulse Ox 06/02/19 05:11 97.0 F L 79 16 115/74 98 06/02/19 00:19 98.0 F 65 16 112/59 98 06/01/19 17:12 98.3 F 74 20 137/98 99 06/01/19 14:51 89 17 138/94 06/01/19 14:41 99 H 24 138/94 06/01/19 14:31 89 22 138/94 98 06/01/19 14:21 90 17 138/94 99 06/01/19 14:11 90 19 138/94 97 06/01/19 14:00 74 14 138/94 97 06/01/19 13:51 88 17 140/82 98 06/01/19 13:41 87 16 140/82 98 06/01/19 13:31 90 17 140/82 98 06/01/19 13:27 89 18 127/77 06/01/19 13:15 90 19 127/77 06/01/19 13:13 84 15 140/82 98 06/01/19 13:00 91 H 19 140/82 06/01/19 12:45 90 19 130/91 06/01/19 12:30 96 H 18 139/97 100 06/01/19 12:15 89 17 153/85 98 06/01/19 12:00 99.3 F 88 90 17 142/92 06/01/19 11:45 92 H 17 133/88 06/01/19 11:30 94 H 18 136/82 95 06/01/19 11:22 92 H 119/88 06/01/19 11:15 93 H 13 119/88 97 06/01/19 11:00 95 H 14 128/81 97 06/01/19 10:45 93 H 16 126/88 95 06/01/19 10:30 94 H 16 128/88 96 06/01/19 10:15 98 H 23 128/83 95 06/01/19 10:00 91 H 19 136/85 96 06/01/19 09:45 86 18 145/95 99 - Physical Examination General: No Apparent Distress HEENT: Positive: PERRL Neck: Positive: trachea midline Cardiac: Positive: Reg Rate and Rhythm Lungs: Positive: Decreased Breath Sounds Neuro: Positive: Grossly Intact Abdomen: Positive: Soft Extremities: Absent: edema - Labs and Meds CBC 06/02/19 Range/Units 04:38 WBC 6.8 (4.5-11.0) K/mm3 RBC 4.28 (3.65-5.03) M/mm3 Hgb 12.3 (11.8-15.2) gm/dl Hct 36.9 (35.5-45.6) % Plt Count 248 (140-440) K/mm3 Comprehensive Metabolic Panel 06/02/19 Range/Units 04:38 Sodium 138 (137-145) mmol/L Potassium 3.9 (3.6-5.0) mmol/L Chloride 104.6 (98-107) mmol/L Carbon Dioxide 22 (22-30) mmol/L BUN 18 (9-20) mg/dL Creatinine 1.1 (0.8-1.5) mg/dL Glucose 97 (75-100) mg/dL Calcium 8.7 (8.4-10.2) mg/dL
[2019-06-02] MEDS ORDERED: MAGNESIUM SULFATE 3 GM in NACL 0.9% 100 ML IV ONE (10:00)
[2019-06-02] MEDS ORDERED: COREG PO SCH (10:00)
[2019-06-02] MEDS: ELIQUIS PO SCH (11:30)
[2019-06-02] MEDS: HALFPRIN EC PO SCH (11:31)
[2019-06-02] MEDS: SODIUM CHLORIDE FLUSH SYRINGE 10 ML IV SCH (11:32)
[2019-06-02 12:05] VITALS: BP 136/85
--- NOTE | 2019-06-02 12:58 | Discharge Summary ---
Providers - Providers Date of Admission: 05/30/19 08:04 Date of discharge: 06/02/19 Attending physician: CARRIE MCALLISTER 05/30/19 07:29 Consult to Physician [CONS] Urgent Comment: Dr. Cole notified @ 07:20- [facility] Consulting Provider: TONY COLE Physician Instructions: Reason For Exam: cp abnormal ekg Consult to Physician [CONS] Urgent Comment: Dr. Chávez notified @ 07:44- [facility] Consulting Provider: JOSE WRIGHT Physician Instructions: Reason For Exam: tachycardia, hypoxia, suspect pulmonary embolus 05/30/19 07:30 Consult to Physician [CONS] Urgent Comment: Dr. Soriano @ 08:00- [facility] Consulting Provider: MERLY SORIANO Physician Instructions: Reason For Exam: tachycardia, hypoxia, suspect PE Primary care physician: GENA MADRID [facility] Reason for admission: Acute PE with right heart strain Condition: Fair Pertinent studies: Venous duplex positive for RT superficial femoral vein stenosis VQ scan reported as high probability for PE. Procedures: -Thrombolysis of bilateral pulmonary arteries on 05/30 -Thrombolytics catheter removal and bilateral pulmonary angiography on 05/31 Hospital course: Final discharge diagnosis: Acute PE with right heart strain s/p thrombolysis of bilateral pulmonary arteries Elevated troponin with abnormal EKG suggestive of acute lateral ischemia versus chronic abnormal ST changes of LVH exacerbated by ongoing tachycardia. Acute respiratory failure with hypoxia ERLIN, probably vasomotor nephropathy SIRS, likely due to noninfectious cause New systolic HF with EF of 35-40% Hypokalemia Hypomagnesemia Hypertension HLD Mild hypercalcemia Hyperglycemia, DM ruled out (Hba1c level: 5.7) Hospital course: In the ED, pt was placed on IV heparin drip as well as 02 supplementation and admitted to the ICU. Thereafter, he underwent thrombolysis without complications. In the unit, he was placed on IVF for the ERLIN and hypercalcemia in addition to medical mgx for the abnormal cardiac enzymes and EKG with BB and aspirin. Echo was done, which showed EF of 35-40%. He later received both K and Mg supplements for electrolyte abnormalities. For the leukocytosis, no acute infection was found and the wbc level later trended down. The thrombolytic catheter was later removed without any complications. Post-procedures, he was transferred to the medical floor for continued mgx. His anticoagulation was then changed to oral Eliquis. He was monitored on the floor without any adverse events and was then deemed stable for discharge. Disposition: DC-01 TO HOME OR SELFCARE Time spent for discharge: 45 minutes Core Measure Documentation - Palliative Care Palliative Care/ Comfort Measures: Not Applicable - Core Measures Any of the following diagnoses?: acute OK - Acute OK Discharge Requirements Aspirin at discharge: Yes SAM/ARB for LVSD if EF <40%: Yes Beta ben at discharge: Yes Statin for LDL = or >100 mg/dl on DC: Yes Exam - Constitutional Vitals: Temp Pulse Resp BP Pulse Ox 98.9 F 62 19 136/85 97 06/02/19 12:01 06/02/19 12:01 06/02/19 12:01 06/02/19 12:01 06/02/19 12:01 General appearance: Present: no acute distress, well-nourished - EENT Eyes: Present: PERRL, EOM intact ENT: hearing intact, clear oral mucosa - Neck Neck: Present: supple, normal ROM - Respiratory Respiratory effort: normal Respiratory: bilateral: CTA - Cardiovascular Rhythm: regular Heart Sounds: Present: S1 & S2. Absent: rub, click - Extremities Extremities: pulses symmetrical, No edema Peripheral Pulses: within normal limits - Abdominal General gastrointestinal: Present: soft, non-tender, non-distended, normal bowel sounds Male genitourinary: Present: deferred - Integumentary Integumentary: Present: clear, warm, dry - Musculoskeletal Musculoskeletal: gait normal, strength equal bilaterally - Psychiatric Psychiatric: appropriate mood/affect, intact judgment & insight - Neurologic Neurologic: CNII-XII intact, moves all extremities Plan Follow up with: GENA MADRID MD [Primary Care Provider] - 7 Days Prescriptions: AtorvaSTATin [Lipitor] 40 mg PO QHS #30 tablet Aspirin EC 81 mg PO QDAY #30 tablet Carvedilol [Coreg] 3.125 mg PO BID #60 tablet Apixaban [Eliquis] 5 mg PO BID #60 tablet Apixaban [Eliquis] 10 mg PO BID 12 Days #24 tablet Lisinopril [Zestril TAB] 5 mg PO QDAY #30 tablet
--- NOTE | 2019-06-02 14:42 | Progress Note ---
Assessment and Plan 63 y/o male with acute PE and DVT 1. needs follow up with Heme to determine if patient needs hypercoaguable work up and how long he will need to be anticoagulated. 2. Stable pulm barbour, will see as needed. Subjective Date of service: 06/02/19 Principal diagnosis: pulmonary embolism Interval history: No acute events. Successful transfer out of unit. Has been transitioned to oral anticoagulants. Remains on room air. Objective Vital Signs - 12hr 06/02/19 06/02/19 06/02/19 05:11 11:31 11:35 Temperature 97.0 F L Pulse Rate 79 79 79 Respiratory 16 Rate Blood Pressure 115/74 115/74 115/74 O2 Sat by Pulse 98 Oximetry 06/02/19 12:01 Temperature 98.9 F Pulse Rate 62 Respiratory 19 Rate Blood Pressure 136/85 O2 Sat by Pulse 97 Oximetry Constitutional: no acute distress, alert Eyes: non-icteric Neck: supple Effort: normal Ascultation: Bilateral: clear Percussion: Bilateral: not dull Tactile fremitus: Bilateral: normal Cardiovascular: other (sinus tach) Gastrointestinal: normoactive bowel sounds, soft Neurologic: normal mental status, non-focal exam CBC and BMP: 06/02/19 04:38 06/02/19 04:38 ABG, PT/INR, D-dimer: PT/INR, D-dimer PT 15.9 Sec. (12.2-14.9) H 05/31/19 00:42 INR 1.30 (0.87-1.13) H 05/31/19 00:42 Abnormal lab findings: Abnormal Labs 05/30/19 05/30/19 05/30/19 07:18 07:18 07:18 WBC 13.2 H RBC 5.78 H Hgb 16.1 H Hct 50.1 H RDW 15.6 H Lymph % (Auto) [place] # 0.9 H Seg Neutrophils % 72.3 H Seg Neutrophils # 9.6 H PT INR APTT Fibrinogen Heparin Anti-Xa Level Potassium Chloride 97.6 L BUN 29 H Creatinine 2.0 H Glucose 140 H POC Glucose Calcium 10.4 H Magnesium Troponin T 0.202 H* NT-Pro-B Natriuret Pep 6186 H Cholesterol 202 H LDL Cholesterol Direct 141 H HDL Cholesterol 61 H Ur Specific [place] Urine WBC (Auto) 07/05/30/19 05/30/19 10:00 13:47 13:47 WBC RBC Hgb Hct RDW Lymph % (Auto) [place] # Seg Neutrophils % Seg Neutrophils # PT INR APTT 73.6 H* Fibrinogen 512 H Heparin Anti-Xa Level Potassium Chloride BUN Creatinine Glucose POC Glucose Calcium Magnesium Troponin T 0.159 H* D 0.146 H* NT-Pro-B Natriuret Pep Cholesterol LDL Cholesterol Direct HDL Cholesterol Ur Specific [place] Urine WBC (Auto) 05/30/19 05/30/19 05/30/19 13:47 13:47 16:36 WBC 12.8 H RBC 5.08 H Hgb Hct RDW 15.5 H Lymph % (Auto) 12.8 L [place] # Seg Neutrophils % 80.1 H Seg Neutrophils # 10.3 H PT INR 1.14 H APTT > 240.0 H* Fibrinogen 550 H Heparin Anti-Xa Level Potassium Chloride BUN 31 H Creatinine 2.0 H Glucose 149 H POC Glucose Calcium Magnesium Troponin T NT-Pro-B Natriuret Pep Cholesterol LDL Cholesterol Direct HDL Cholesterol Ur Specific [place] Urine WBC (Auto) 05/30/19 05/31/19 05/31/19 19:12 00:42 04:25 WBC 12.7 H RBC Hgb Hct RDW 15.3 H Lymph % (Auto) [place] # Seg Neutrophils % Seg Neutrophils # PT 15.9 H INR 1.30 H APTT 40.3 H Fibrinogen Heparin Anti-Xa Level Potassium Chloride BUN Creatinine Glucose POC Glucose Calcium Magnesium Troponin T NT-Pro-B Natriuret Pep Cholesterol LDL Cholesterol Direct HDL Cholesterol Ur Specific [place] 1.047 H Urine WBC (Auto) 10.0 H 05/31/19 05/31/19 05/31/19 04:25 12:13 18:31 WBC RBC Hgb Hct RDW Lymph % (Auto) [place] # Seg Neutrophils % Seg Neutrophils # PT INR APTT Fibrinogen Heparin Anti-Xa Level Potassium 3.5 L Chloride BUN 29 H Creatinine 1.7 H Glucose 131 H POC Glucose 112 H 114 H Calcium Magnesium Troponin T NT-Pro-B Natriuret Pep Cholesterol LDL Cholesterol Direct HDL Cholesterol Ur Specific [place] Urine WBC (Auto) 05/31/19 06/01/19 06/01/19 19:41 02:45 02:45 WBC RBC Hgb Hct RDW Lymph % (Auto) [place] # Seg Neutrophils % Seg Neutrophils # PT INR APTT Fibrinogen Heparin Anti-Xa Level < 0.10 L 0.21 L Potassium Chloride BUN 24 H Creatinine Glucose 129 H POC Glucose Calcium 8.3 L Magnesium 1.40 L Troponin T NT-Pro-B Natriuret Pep Cholesterol LDL Cholesterol Direct HDL Cholesterol Ur Specific [place] Urine WBC (Auto) 06/01/19 06/02/19 11:08 04:38 WBC RBC Hgb Hct RDW Lymph % (Auto) [place] # Seg Neutrophils % Seg Neutrophils # PT INR APTT Fibrinogen Heparin Anti-Xa Level 0.14 L Potassium Chloride BUN Creatinine Glucose POC Glucose Calcium Magnesium 1.60 L Troponin T NT-Pro-B Natriuret Pep Cholesterol LDL Cholesterol Direct HDL Cholesterol Ur Specific [place] Urine WBC (Auto)
[2019-06-08] MEDS ORDERED: ELIQUIS PO SCH (10:00)
== END 2019-06-02 16:01 | disposition home or self-care (01) | DRG 299 ==
LOC: ED 06:54 → 3A 08:04 → IMCU 10:08 → CC1 10:28 → 3A 06-01 15:37
PROVIDERS: ADMIT Internal Medicine; ATTEND Internal Medicine
PROC: B31T1ZZ Fluoroscopy of Left Pulmonary Artery using Low Osmolar Contrast (ICD-10-PCS; principal; 2019-05-30)
PROC: B31S1ZZ Fluoroscopy of Right Pulmonary Artery using Low Osmolar Contrast (ICD-10-PCS; 2019-05-30)
PROC: 3E06317 Introduction of Other Thrombolytic into Central Artery, Percutaneous Approach (ICD-10-PCS; 2019-05-30)
PROC: 3E06317 Introduction of Other Thrombolytic into Central Artery, Percutaneous Approach (ICD-10-PCS; 2019-05-30)
PROC: B54BZZA Ultrasonography of Right Lower Extremity Veins, Guidance (ICD-10-PCS; 2019-05-30)
PROC: 02HQ33Z Insertion of Infusion Device into Right Pulmonary Artery, Percutaneous Approach (ICD-10-PCS; 2019-05-30)
PROC: 02HR33Z Insertion of Infusion Device into Left Pulmonary Artery, Percutaneous Approach (ICD-10-PCS; 2019-05-30)
PROC: B31T1ZZ Fluoroscopy of Left Pulmonary Artery using Low Osmolar Contrast (ICD-10-PCS; 2019-05-31)
PROC: B31S1ZZ Fluoroscopy of Right Pulmonary Artery using Low Osmolar Contrast (ICD-10-PCS; 2019-05-31)
PROC: 02PYX3Z Removal of Infusion Device from Great Vessel, External Approach (ICD-10-PCS; 2019-05-31)
DX: I82.411 Acute embolism and thrombosis of right femoral vein (principal); I26.99 Other pulmonary embolism without acute cor pulmonale; J96.01 Acute respiratory failure with hypoxia; N17.0 Acute kidney failure with tubular necrosis; R65.10 Systemic inflammatory response syndrome (SIRS) of non-infectious origin without acute organ dysfunction; I50.20 Unspecified systolic (congestive) heart failure; R73.9 Hyperglycemia, unspecified; R00.0 Tachycardia, unspecified; E87.6 Hypokalemia; E83.42 Hypomagnesemia; I11.0 Hypertensive heart disease with heart failure; E78.5 Hyperlipidemia, unspecified; F41.9 Anxiety disorder, unspecified; E83.52 Hypercalcemia; Z90.49 Acquired absence of other specified parts of digestive tract; Z82.49 Family history of ischemic heart disease and other diseases of the circulatory system
CPT/HCPCS: 36415; 37211; 37214; 71045; 76937; 78582; 80048; 80061; 81001; 82962; 83036; 83735; 83880; 84484; 85014; 85018; 85025; 85027; 85049; 85384; 85520; 85610; 85730; 86850; 86900; 86901; 87086; 93005; 93010; 93306; 93970; 94760; 96374; 96375; 99292; 99406; G0378; A9270-GY; A9540; A9558; C1757; C1769; C1887; C1894; J1644; J2250; J2270; J2997; J3010; J3475; J7030; J7040; J7050; Q9967

== ENCOUNTER 2021-01-29 10:35 | Observation (INO) | payer MEDICARE, OTHER ==
--- NOTE | 2021-01-29 10:42 | Event Note ---
ED Screening Note Date of service: 01/29/21 Time: 10:41 ED Screening Note: Patient complains of shortness of breath and mid chest discomfort x3 days Had a negative Covid test yesterday History of hypertension and blood clots per patient Currently on Eliquis This initial assessment/diagnostic orders/clinical plan/treatment(s) is/are subject to change based on patients health status, clinical progression and re- assessment by fellow clinical providers in the ED. Further treatment and workup at subsequent clinical providers discretion. Patient/guardian urged not to elope from the ED as their condition may be serious if not clinically assessed and managed. Initial orders include: Labs EKG Chest x-ray
--- NOTE | 2021-01-29 11:21 | XRay Report ---
CHEST 2 VIEWS INDICATION: shortness of breath, chest pain. COMPARISON: none FINDINGS: Support devices: None. Heart: Within normal limits. Lungs/pleura: No acute air space or interstitial disease. No pneumothorax. Additional findings: None. IMPRESSION: No acute findings. Signer Name: Celestine Simon Jr, MD Signed: 01/29/2021 11:16 AM Workstation Name: [id number]
[2021-01-29 13:18] LABS: Basophils % (Auto) 0.7 % (0.0-1.8); Eosinophils # (Auto) 0.1 K/mm3 (0.0-0.4); Eosinophils % (Auto) 2.4 % (0.0-4.3); Hematocrit 41.9 % (35.5-45.6); Hemoglobin 13.7 gm/dl (11.8-15.2); Lymphocytes # (Auto) 1.9 K/mm3 (1.2-5.4); Lymphocytes % (Auto) 36.2 % (13.4-35.0); Mean Corpuscular HGB Conc 33 % (32-34); Mean Corpuscular Volume 85 fl (84-94); Monocytes # (Auto) 0.5 K/mm3 (0.0-0.8); Monocytes % (Auto) 9.4 % (0.0-7.3); Platelet Count 304 K/mm3 (140-440); Red Blood Count 4.92 M/mm3 (3.65-5.03); Red Cell Distribution Width 17.7 % (13.2-15.2)
--- NOTE | 2021-01-29 13:18 | Emergency Department Report ---
ED Shortness of Breath HPI - General Chief Complaint: Chest Pain Stated Complaint: CP Time Seen by Provider: 01/29/21 10:41 Source: patient, old records reviewed Mode of arrival: Ambulatory Limitations: No Limitations - History of Present Illness Initial Comments: 65-year-old male with a past medical history hypertension, CHF, elevated cholesterol, and pulmonary embolism requiring thrombolysis in 2019 presents to the hospital complaining of progressive worsening shortness of breath after 3 weeks. Dyspnea typically worse with exertion. He denies orthopnea or PND. Yesterday he noted he was more short of breath on climbing his stairs with associated mild chest pressure and diaphoresis. No nausea, vomiting, leg edema, calf tenderness. Patient is compliant with all his medications including Xarelto. He denies cough or cold symptoms or loss of sense of taste or smell and had a negative outpatient Covid test yesterday. Patient states he also feels like his legs are intimately going to sleep but denies calf tenderness, leg edema, or weakness patient has not seen his primary care doctor in greater 1.5 years but has been seeing his statistical programmer Dr. Brooks as outpatient. Patient states he has had a negative outpatient stress test with the last 1 to 2 years and has never had a cardiac cath. As per discharge summary from Medical record reviewed. Discharge summary from last admission here in June 19, 2019 Final discharge diagnosis: Acute PE with right heart strain s/p thrombolysis of bilateral pulmonary arteries Elevated troponin with abnormal EKG suggestive of acute lateral ischemia versus chronic abnormal ST changes of LVH exacerbated by ongoing tachycardia. Acute respiratory failure with hypoxia ERLIN, probably vasomotor nephropathy SIRS, likely due to noninfectious cause New systolic HF with EF of 35-40% Hypokalemia Hypomagnesemia Hypertension HLD Mild hypercalcemia Hyperglycemia, DM ruled out (Hba1c level: 5.7) Hospital course: In the ED, pt was placed on IV heparin drip as well as 02 supplementation and admitted to the ICU. Thereafter, he underwent thrombolysis without complications. In the unit, he was placed on IVF for the ERLIN and hypercalcemia in addition to medical mgx for the abnormal cardiac enzymes and EKG with BB and aspirin. Echo was done, which showed EF of 35-40%. He later received both K and Mg supplements for electrolyte abnormalities. For the leukocytosis, no acute infection was found and the wbc level later trended down. The thrombolytic catheter was later removed without any complications. Post-procedures, he was transferred to the medical floor for continued mgx. His anticoagulation was then changed to oral Eliquis. He was monitored on the floor without any adverse events and was then deemed stable for discharge. Disposition: DC-01 TO HOME OR SELFCARE - Related Data Home Medications Medication Instructions Recorded Confirmed Last Taken Apixaban [Eliquis] 5 mg PO DAILY 01/29/21 01/29/21 Unknown Famotidine [Pepcid] 40 mg PO DAILY 01/29/21 01/29/21 Unknown NIFEdipine [Nifedipine ER] 90 mg PO DAILY 01/29/21 01/29/21 Unknown Valsartan [Diovan] 160 mg PO DAILY 01/29/21 01/29/21 Unknown carvediloL [Coreg] 25 mg PO BID 01/29/21 01/29/21 Unknown hydrALAZINE [Apresoline TAB] 100 mg PO BID 01/29/21 01/29/21 Unknown Previous Rx's Medication Instructions Recorded Last Taken Type Aspirin EC [Halfprin EC] 81 mg PO QDAY #30 tablet 06/02/19 Unknown Rx AtorvaSTATin [Lipitor] 40 mg PO QHS #30 tablet 06/02/19 Unknown Rx Allergies Allergy/AdvReac Type Severity Reaction Status Date / Time No Known Allergies Allergy Unverified 05/30/19 07:05 ED Review of Systems ROS: Stated complaint: CP Other details as noted in HPI Comment: All other systems reviewed and negative ED Past Medical Hx - Past Medical History Previous Medical History?: Yes Hx Hypertension: Yes Additional medical history: High Cholesterol. Hx of PE - Social History Smoking Status: Current Every Day Smoker - Medications Home Medications: Home Medications Medication Instructions Recorded Confirmed Last Taken Type Aspirin EC [Halfprin EC] 81 mg PO QDAY #30 tablet 06/02/19 01/29/21 Unknown Rx AtorvaSTATin [Lipitor] 40 mg PO QHS #30 tablet 06/02/19 01/29/21 Unknown Rx Apixaban [Eliquis] 5 mg PO DAILY 01/29/21 01/29/21 Unknown History Famotidine [Pepcid] 40 mg PO DAILY 01/29/21 01/29/21 Unknown History NIFEdipine [Nifedipine ER] 90 mg PO DAILY 01/29/21 01/29/21 Unknown History Valsartan [Diovan] 160 mg PO DAILY 01/29/21 01/29/21 Unknown History carvediloL [Coreg] 25 mg PO BID 01/29/21 01/29/21 Unknown History hydrALAZINE [Apresoline TAB] 100 mg PO BID 01/29/21 01/29/21 Unknown History ED Physical Exam - General Limitations: No Limitations - Other Other exam information: General: No acute distress Head: Atraumatic Eyes: normal appearance ENT: Moist mucous membranes Neck: Normal appearance, no midline tenderness Chest: Clear to auscultation bilaterally CV: Regular rate and rhythm Abdomen: Soft, normal bowel sounds, nontender, nondistended, no rebound or guard ing Back: Normal inspection Extremity: Normal inspection, full range of motion Neuro: Alert O x 3, no facial asymmetry, speech clear, no gross motor sensory deficit Psych: Appropriate behavior Skin: No rash ED Course Vital Signs 01/29/21 01/29/21 10:43 16:01 Temperature 99.4 F Pulse Rate 96 H 75 Respiratory 22 16 Rate Blood Pressure 166/119 159/92 [Right] O2 Sat by Pulse 96 97 Oximetry - Consultations Consultation #1: 01/29/21 16:50 he will evaluate patient is right since ED work-up unremarkable outpatient follow-up recommended 01/29/21 18:[address] Dukes and he reviewed office records. Patient is a history of nonischemic cardiomyopathy that is gradually improving. Patient however does have exertional dyspnea with normal CTA and therefore inpatient stress testing recommended ED Medical Decision Making - Lab Data Result diagrams: 01/29/21 12:46 01/29/21 12:46 Lab Results 01/29/21 01/29/21 01/29/21 Range/Units 12:46 12:46 12:46 WBC 5.3 (4.5-11.0) K/mm3 RBC 4.92 (3.65-5.03) M/mm3 Hgb 13.7 (11.8-15.2) gm/dl Hct 41.9 (35.5-45.6) % MCV 85 (84-94) fl MCH 28 (28-32) pg MCHC 33 (32-34) % RDW 17.7 H (13.2-15.2) % Plt Count 304 (140-440) K/mm3 Lymph % (Auto) 36.2 H (13.4-35.0) % [place] % (Auto) 9.4 H (0.0-7.3) % Eos % (Auto) 2.4 (0.0-4.3) % Baso % (Auto) 0.7 (0.0-1.8) % Lymph # (Auto) 1.9 (1.2-5.4) K/mm3 [place] # (Auto) 0.5 (0.0-0.8) K/mm3 Eos # (Auto) 0.1 (0.0-0.4) K/mm3 Baso # (Auto) 0.0 (0.0-0.1) K/mm3 Seg Neutrophils % 51.3 (40.0-70.0) % Seg Neutrophils # 2.7 (1.8-7.7) K/mm3 PT (12.2-14.9) Sec. INR (0.87-1.13) APTT (24.2-36.6) Sec. Sodium 136 L (137-145) mmol/L Potassium 4.3 (3.6-5.0) mmol/L Chloride 103.3 (98-107) mmol/L Carbon Dioxide 22 (22-30) mmol/L Anion Gap 15 mmol/L BUN 28 H (9-20) mg/dL Creatinine 1.4 H (0.8-1.3) mg/dL Estimated GFR > 60 ml/min BUN/Creatinine Ratio 20 % Glucose 104 H (75-100) mg/dL Calcium 9.6 (8.4-10.2) mg/dL Total Bilirubin 0.40 (0.1-1.2) mg/dL AST 21 (5-40) units/L ALT 19 (7-56) units/L Alkaline Phosphatase 89 (35-129) units/L Troponin T < 0.010 (0.00-0.029) ng/mL NT-Pro-B Natriuret Pep 40.43 (0-900) pg/mL Total Protein 7.4 (6.3-8.2) g/dL Albumin 4.1 (3.9-5) g/dL Albumin/Globulin Ratio 1.2 % 01/29/21 01/29/21 Range/Units 13:11 15:38 WBC (4.5-11.0) K/mm3 RBC (3.65-5.03) M/mm3 Hgb (11.8-15.2) gm/dl Hct (35.5-45.6) % MCV (84-94) fl MCH (28-32) pg MCHC (32-34) % RDW (13.2-15.2) % Plt Count (140-440) K/mm3 Lymph % (Auto) (13.4-35.0) % [place] % (Auto) (0.0-7.3) % Eos % (Auto) (0.0-4.3) % Baso % (Auto) (0.0-1.8) % Lymph # (Auto) (1.2-5.4) K/mm3 [place] # (Auto) (0.0-0.8) K/mm3 Eos # (Auto) (0.0-0.4) K/mm3 Baso # (Auto) (0.0-0.1) K/mm3 Seg Neutrophils % (40.0-70.0) % Seg Neutrophils # (1.8-7.7) K/mm3 PT 13.9 (12.2-14.9) Sec. INR 1.08 (0.87-1.13) APTT 33.7 (24.2-36.6) Sec. Sodium (137-145) mmol/L Potassium (3.6-5.0) mmol/L Chloride (98-107) mmol/L Carbon Dioxide (22-30) mmol/L Anion Gap mmol/L BUN (9-20) mg/dL Creatinine (0.8-1.3) mg/dL Estimated GFR ml/min BUN/Creatinine Ratio % Glucose (75-100) mg/dL Calcium (8.4-10.2) mg/dL Total Bilirubin (0.1-1.2) mg/dL AST (5-40) units/L ALT (7-56) units/L Alkaline Phosphatase (35-129) units/L Troponin T < 0.010 (0.00-0.029) ng/mL NT-Pro-B Natriuret Pep (0-900) pg/mL Total Protein (6.3-8.2) g/dL Albumin (3.9-5) g/dL Albumin/Globulin Ratio % - EKG Data -: EKG Interpreted by Me (Biatrial enlargement, anteroseptal infarct) EKG shows normal: sinus rhythm, ST-T waves (no stemi, mild case present on previous EKG) Rate: normal - EKG Data When compared to previous EKG there are: no significant change - Radiology Data Radiology results: report reviewed CHEST 2 VIEWS INDICATION: shortness of breath, chest pain. COMPARISON: none FINDINGS: Support devices: None. Heart: Within normal limits. Lungs/pleura: No acute air space or interstitial disease. No pneumothorax. Additional findings: None. IMPRESSION: No acute findings. - Medical Decision Making 65-year-old male presents to the hospital with progressively worsening exertional dyspnea with intermittent chest pain. CTA chest PE work-up unremarkable. No acute ischemia or ST elevation NC noted in the ED. Patient has a heart score of 5 with exertional chest pain with therefore angina equivalent considered. This was discussed with Dr. Alegria who agrees that patient should be admitted for in-house stress testing. Critical Care Time: No Critical care attestation.: If time is entered above; I have spent that time in minutes in the direct care of this critically ill patient, excluding procedure time. ED Disposition Clinical Impression: [place] (dyspnea on exertion), History of pulmonary embolism, Nonischemic c ardiomyopathy, Chronic anticoagulation Disposition: OP ADMIT IP TO THIS HOSP Is pt being admited?: Yes Does the pt Need Aspirin: No Condition: Stable Additional Instructions: Take the medication as prescribed. Follow-up with your doctor or doctor/clinic provided. Return if symptoms worsen as indicated by your discharge instructions. Time of Disposition: 18:25 (Dr Barclay/hospitalist) HEART Score - HEART Score History: Slightly suspicious EKG: Non-specific Age: > 65 Risk factors: > 3 risk factors or hx of atherosclerotic disease Troponin: Troponin T < 0.010 ng/mL (0.00-0.029) 01/29/21 15:38 Troponin: < normal limit HEART Score: 5
[2021-01-29 13:41] LABS: Alanine Aminotransferase 19 units/L (7-56); Albumin 4.1 g/dL (3.9-5); BUN/Creatinine Ratio 20; Blood Urea Nitrogen 28 mg/dL (9-20); Calcium 9.6 mg/dL (8.4-10.2); Hemolysis Index 4
[2021-01-29 14:08] LABS: INR 1.08 (0.87-1.13); Partial Thromboplastin Time 33.7 Sec. (24.2-36.6)
--- NOTE | 2021-01-29 15:07 | Cat Scan Report ---
CTA CHEST WITH IV CONTRAST INDICATION: Dyspnea on exertion. TECHNIQUE: Axial CT images were obtained through the chest after injection of 60 cc Omnipaque 350 IV contrast. 3 plane MIP reconstructions were produced. All CT scans at this location are performed using CT dose r eduction for ALARA by means of automated exposure control. COMPARISON: 2 views of the chest performed earlier today. FINDINGS: PULMONARY ARTERIES: Good opacification of the pulmonary arteries without visualization of emboli. AORTA AND ARTERIES: The aorta is normal in caliber and mildly calcified. There is mild coronary ather osclerosis. No other significant abnormality. HEART: No significant abnormality. MEDIASTINUM: No significant abnormality. LUNGS: Mild emphysema is noted with an upper lobe predominance. There is mild dependent bilateral ate lectasis. There is a ossified granuloma in the right upper lobe. No suspicious nodule, mass or consol idation. No pneumothorax or pleural effusion. ADDITIONAL FINDINGS: None. UPPER ABDOMEN: No acute findings. BONES: No significant osseous abnormality. IMPRESSION: 1. No CT evidence for pulmonary embolism. 2. No acute findings. Signer Name: Lewis Jin MD Signed: 01/29/2021 3:02 PM Workstation Name: [id number]
--- NOTE | 2021-01-29 18:47 | History and Physical Report ---
History of Present Illness Chief complaint: Im short of breath and my chest feels tight History of present illness: 65 YO Male with Systolic CHF(EF 35%), HLD, PE on Therapeutic Anticoagulation with Eliquis, GERD, HTN, Nicotine Dependence presents to ED for evaluation. Patient reports "I feel short of breath and my chest feels tight". Patient states that he has experienced decreased exercise tolerance, dyspnea on e xertion, dyspnea at rest over the past 3 weeks with worsening symptoms over the past 1 week. Patient transported to [facility] via private vehicle for further care and evaluation of the aforementioned symptoms. Patient seen and evaluated in the emergency department. All lab and imaging studies reviewed. Patient found to have symptoms consistent with CHF decompensation, angina, acute kidney injury. Patient admitted to telemetry and initiated on chest pain protocol. Cardiology team consulted in ED. Further testing as per cardiology team. Patient denies fever, chills, chest pain, palpitation, productive cough, skin rash, recent ill contacts, or known exposure to COVID-19. Prior admission on 05/30/2019 reviewed. All medication listed at time of admission has been reconciled. Advanced care planning conducted in ED. Past History Past Medical History: GERD, hypertension, hyperlipidemia, pulmonary embolism Past Surgical History: No surgical history, Other (Reviewed) Social history: , lives with family, smoking. denies: alcohol abuse, prescription drug abuse Family history: hypertension Medications and Allergies Allergies Allergy/AdvReac Type Severity Reaction Status Date / Time No Known Allergies Allergy Unverified 05/30/19 07:05 Home Medications Medication Instructions Recorded Confirmed Last Taken Type Aspirin EC [Halfprin EC] 81 mg PO QDAY #30 tablet 06/02/19 01/29/21 Unknown Rx AtorvaSTATin [Lipitor] 40 mg PO QHS #30 tablet 06/02/19 01/29/21 Unknown Rx Apixaban [Eliquis] 5 mg PO DAILY 01/29/21 01/29/21 Unknown History Famotidine [Pepcid] 40 mg PO DAILY 01/29/21 01/29/21 Unknown History NIFEdipine [Nifedipine ER] 90 mg PO DAILY 01/29/21 01/29/21 Unknown History Valsartan [Diovan] 160 mg PO DAILY 01/29/21 01/29/21 Unknown History carvediloL [Coreg] 25 mg PO BID 01/29/21 01/29/21 Unknown History hydrALAZINE [Apresoline TAB] 100 mg PO BID 01/29/21 01/29/21 Unknown History Review of Systems Constitutional: no weight loss, no weight gain, no fever, no chills Ears, nose, mouth and throat: no ear pain, no ear discharge, no tinnitis, no nose pain, no nasal congestion, no nasal discharge, no sinus pain Cardiovascular: shortness of breath, high blood pressure, decreased exercise tolerance, no orthopnea Respiratory: dyspnea on exertion, no cough, no cough with sputum, no hemoptysis Gastrointestinal: no abdominal pain, no nausea, no vomiting, no diarrhea Genitourinary Male: no hematuria, no flank pain, no discharge, no urinary frequency, no urinary hesitancy Rectal: no pain, no incontinence, no bleeding Musculoskeletal: no neck stiffness, no neck pain, no shooting arm pain, no arm numbness/tingling Integumentary: no rash, no pruritis, no redness, no sores, no wounds Neurological: no head injury, no transient paralysis, no weakness, no parathesias, no numbness, no tingling, no seizures Psychiatric: no anxiety, no memory loss, no change in sleep habits, no sleep disturbances, no insomnia Endocrine: no cold intolerance, no heat intolerance, no excessive thirst, no polyuria, no nocturia Hematologic/Lymphatic: no easy bruising, no easy bleeding, no lymphedema Allergic/Immunologic: no urticaria, no allergic rhinitis, no persistent infections Exam - Constitutional Vitals: Temp Pulse Resp BP Pulse Ox 99.4 F 75 16 159/92 97 01/29/21 10:43 01/29/21 16:01 01/29/21 16:01 01/29/21 16:01 01/29/21 16:01 General appearance: Present: mild distress - EENT Eyes: Present: PERRL ENT: hearing intact, clear oral mucosa - Neck Neck: Present: supple, normal ROM - Respiratory Respiratory effort: normal Respiratory: bilateral: CTA - Cardiovascular Heart Sounds: Present: S1 & S2. Absent: rub, click - Extremities Extremities: pulses symmetrical, No edema Peripheral Pulses: within normal limits - Abdominal General gastrointestinal: Present: soft, non-tender, non-distended, normal bowel sounds Male genitourinary: Present: normal - Integumentary Integumentary: Present: clear, warm, dry - Musculoskeletal Musculoskeletal: gait normal, strength equal bilaterally - Psychiatric Psychiatric: appropriate mood/affect, intact judgment & insight - Neurologic Neurologic: CNII-XII intact, moves all extremities HEART Score - HEART Score EKG: Non-specific Age: > 65 Risk factors: > 3 risk factors or hx of atherosclerotic disease Troponin: Troponin T < 0.010 ng/mL (0.00-0.029) 01/29/21 15:38 Troponin: < normal limit Results - Labs CBC & Chem 7: 01/29/21 12:46 01/29/21 12:46 Labs: Abnormal lab results 01/29/21 01/29/21 Range/Units 12:46 12:46 RDW 17.7 H (13.2-15.2) % Lymph % (Auto) 36.2 H (13.4-35.0) % [place] % (Auto) 9.4 H (0.0-7.3) % Sodium 136 L (137-145) mmol/L BUN 28 H (9-20) mg/dL Creatinine 1.4 H (0.8-1.3) mg/dL Glucose 104 H (75-100) mg/dL Assessment and Plan - Patient Problems (1) Angina at rest Current Visit: Yes Status: Acute Plan to address problem: Serial cardiac enzymes, telemetry monitoring, serial EKG, cardiology team consulted, supplemental oxygen, morphine, nitro, aspirin, (2) Systolic CHF Current Visit: Yes Status: Acute Qualifiers: Heart failure chronicity: acute Qualified Code(s): I50.21 - Acute systolic (congestive) heart failure Plan to address problem: Strict I's/O, monitor urine output every shift, afterload reduction, blood pressure control, cardiology team consulted in ED. (3) ERLIN (acute kidney injury) Current Visit: Yes Status: Acute Plan to address problem: BMP, encourage free water intake as clinically indicated, repeat BMP in a.m., monitor fluid balance, strict I's/O. (4) History of pulmonary embolism Current Visit: Yes Status: Acute Plan to address problem: Continue therapeutic anticoagulation, supportive care. (5) DVT prophylaxis Current Visit: Yes Status: Acute Plan to address problem: SCD to bilateral lower extremities while in bed, continue therapeutic anticoagulation. (6) Advance care planning Current Visit: Yes Status: Acute Plan to address problem: Disease education conducted, patient is full code, care plan discussed, prognosis discussed, diagnosis discussed, patient knowledges understanding and agreement with care plan. +30 minutes.
[2021-01-29] MEDS ORDERED: ALBUTEROL 2.5 MG/3 ML NEBU IH PRN (18:49)
[2021-01-29] MEDS ORDERED: ACETAMINOPHEN 325 MG TAB PO PRN ×2 (18:49→20:03)
[2021-01-29] MEDS ORDERED: ONDANSETRON 4 MG/2 ML INJ IV PRN (18:49)
[2021-01-29 19:27] LABS: Free T4 (Free Thyroxine) 1.19 ng/dL (0.76-1.46)
[2021-01-29] MEDS ORDERED: traMADol 50 MG TAB PO PRN (20:03)
[2021-01-29] MEDS: FAMOTIDINE 10 MG TAB PO SCH (23:49)
[2021-01-29] MEDS: hydrALAZINE 100 MG TAB PO SCH (23:49)
[2021-01-29] MEDS: carvediloL 25 MG TAB PO SCH (23:49)
[2021-01-30 05:39] LABS: BUN/Creatinine Ratio 17; Blood Urea Nitrogen 22 mg/dL (9-20); Calcium 9.1 mg/dL (8.4-10.2); Hemolysis Index 3
[2021-01-30] MEDS ORDERED: NIFEdipine XL 90 MG TAB PO SCH (10:00)
[2021-01-30] MEDS ORDERED: ASPIRIN EC 81 MG TAB PO SCH (10:00)
[2021-01-30] MEDS ORDERED: NON-FORMULARY EACH (Nifedipine [Nifedipine Er] 90 MG Tablet.Er) PO SCH (10:00)
[2021-01-30] MEDS ORDERED: APIXABAN 5 MG TAB PO SCH ×2 (10:00→22:00)
[2021-01-30] MEDS ORDERED: NON-FORMULARY EACH (Famotidine [Pepcid] 40 MG Tablet) PO SCH (10:00)
[2021-01-30] MEDS ORDERED: VALSARTAN 160MG TAB PO SCH (10:00)
--- NOTE | 2021-01-30 10:36 | Consultation ---
History of Present Illness Consult date: 01/30/21 Consult reason: chest pain History of present illness: The patient is a 65-year-old man with a history of pulmonary embolism on Eliq uis, and a moderate severity nonischemic cardiomyopathy, ejection fraction 35 to 40% on most recent echocardiogram. The nonischemic basis of her cardiomyopathy was established by myocardial perfusion scan, patient has not previously undergone invasive cardiac angiography. He presents to the hospital at this time, with complaints of exertional dyspnea, and fatigue. ECG in the emergency room was a sinus rhythm, left ventricle hypertrophy, poor R wave progression, no acute ischemic changes. A CT angiogram of the chest was negative for recurrent pulmonary embolism. Patient has been fully compliant with his medical therapy. Chest x-ray was unremarkable, and serial troponin levels were negative. Cardiology consultation was requested for further assessment of exertional chest pressure and fatigue. Past History Past Medical History: GERD, heart failure, hypertension, hyperlipidemia, pulmonary embolism Past Surgical History: No surgical history, Other (Reviewed) Social history: , lives with family, smoking. denies: alcohol abuse, prescription drug abuse Family history: hypertension Medications and Allergies Allergies Allergy/AdvReac Type Severity Reaction Status Date / Time No Known Allergies Allergy Unverified 05/30/19 07:05 Home Medications Medication Instructions Recorded Confirmed Last Taken Type Aspirin EC [Halfprin EC] 81 mg PO QDAY #30 tablet 06/02/19 01/29/21 Unknown Rx AtorvaSTATin [Lipitor] 40 mg PO QHS #30 tablet 06/02/19 01/29/21 Unknown Rx Apixaban [Eliquis] 5 mg PO DAILY 01/29/21 01/29/21 Unknown History Famotidine [Pepcid] 40 mg PO DAILY 01/29/21 01/29/21 Unknown History NIFEdipine [Nifedipine ER] 90 mg PO DAILY 01/29/21 01/29/21 Unknown History Valsartan [Diovan] 160 mg PO DAILY 01/29/21 01/29/21 Unknown History carvediloL [Coreg] 25 mg PO BID 01/29/21 01/29/21 Unknown History hydrALAZINE [Apresoline TAB] 100 mg PO BID 01/29/21 01/29/21 Unknown History Active Meds: Active Medications Acetaminophen (Acetaminophen 325 Mg Tab) 650 mg PO Q4H PRN PRN Reason: Pain MILD(1-3)/Fever >100.5/BUSTOS Albuterol (Albuterol 2.5 Mg/3 Ml Nebu) 2.5 mg IH Q4HRT PRN PRN Reason: Shortness Of Breath Apixaban (Apixaban 5 Mg Tab) 5 mg PO BID [facility]; Protocol Aspirin (Aspirin Ec 81 Mg Tab) 81 mg PO QDAY [facility] Atorvastatin Calcium (Atorvastatin 40 Mg Tab) 40 mg PO QHS [facility] Last Admin: 01/29/21 23:49 Dose: 40 mg Documented by: Carvedilol (Carvedilol 25 Mg Tab) 25 mg PO BID [facility] Last Admin: 01/29/21 23:49 Dose: 25 mg Documented by: Famotidine (Famotidine 10 Mg Tab) 10 mg PO BID [facility] Last Admin: 01/29/21 23:49 Dose: 10 mg Documented by: Hydralazine HCl (Hydralazine 100 Mg Tab) 100 mg PO BID [facility] Last Admin: 01/29/21 23:49 Dose: 100 mg Documented by: Nifedipine (Nifedipine Xl 90 Mg Tab) 90 mg PO QDAY [facility] Ondansetron HCl (Ondansetron 4 Mg/2 Ml Inj) 4 mg IV Q8H PRN PRN Reason: Nausea And Vomiting Sodium Chloride (Sodium Chloride 0.9% 10 Ml Flush Syringe) 10 ml IV BID [facility] Last Admin: 01/29/21 23:51 Dose: 10 ml Documented by: Sodium Chloride (Sodium Chloride 0.9% 10 Ml Flush Syringe) 10 ml IV PRN PRN PRN Reason: LINE FLUSH Sodium Chloride (Sodium Chloride 0.9% 10 Ml Flush Syringe) 10 ml IV PRN PRN PRN Reason: LINE FLUSH Tramadol HCl (Tramadol 50 Mg Tab) 50 mg PO Q6H PRN PRN Reason: Pain, Moderate (4-6) Valsartan (Valsartan 160mg Tab) 160 mg PO DAILY [facility] Review of Systems Cardiovascular: chest pain, shortness of breath, no orthopnea, no palpitations, no rapid/irregular heart beat, no edema, no syncope, no lightheadedness Physical Examination Vital Signs Temp Pulse Resp BP Pulse Ox 99.4 F 96 H 22 166/119 96 01/29/21 10:43 01/29/21 10:43 01/29/21 10:43 01/29/21 10:43 01/29/21 10:43 General appearance: no acute distress HEENT: Positive: PERRL Neck: Positive: neck supple Cardiac: Positive: Reg Rate and Rhythm Lungs: Positive: Decreased Breath Sounds Neuro: Positive: Grossly Intact Abdomen: Positive: Soft Male genitourinary: Positive: deferred Skin: Positive: Clear Extremities: Absent: edema Results 01/29/21 12:46 01/30/21 05:05 Cardiac Enzymes 01/29/21 Range/Units 12:46 AST 21 (5-40) units/L Coagulation 01/29/21 Range/Units 13:11 PT 13.9 (12.2-14.9) Sec. INR 1.08 (0.87-1.13) APTT 33.7 (24.2-36.6) Sec. CBC 01/29/21 Range/Units 12:46 WBC 5.3 (4.5-11.0) K/mm3 RBC 4.92 (3.65-5.03) M/mm3 Hgb 13.7 (11.8-15.2) gm/dl Hct 41.9 (35.5-45.6) % Plt Count 304 (140-440) K/mm3 Lymph # (Auto) 1.9 (1.2-5.4) K/mm3 [place] # (Auto) 0.5 (0.0-0.8) K/mm3 Eos # (Auto) 0.1 (0.0-0.4) K/mm3 Baso # (Auto) 0.0 (0.0-0.1) K/mm3 Comprehensive Metabolic Panel 01/29/21 01/30/21 Range/Units 12:46 05:05 Sodium 136 L 139 (137-145) mmol/L Potassium 4.3 4.0 (3.6-5.0) mmol/L Chloride 103.3 103.2 (98-107) mmol/L Carbon Dioxide 22 24 (22-30) mmol/L BUN 28 H 22 H (9-20) mg/dL Creatinine 1.4 H 1.3 (0.8-1.3) mg/dL Glucose 104 H 104 H (75-100) mg/dL Calcium 9.6 9.1 (8.4-10.2) mg/dL AST 21 (5-40) units/L ALT 19 (7-56) units/L Alkaline Phosphatase 89 (35-129) units/L Total Protein 7.4 (6.3-8.2) g/dL Albumin 4.1 (3.9-5) g/dL EKG interpretations - Telemetry EKG Rhythm: Sinus Rhythm Assessment and Plan - Patient Problems (1) Chest pain Current Visit: Yes Status: Acute Plan to address problem: Patient with a history of pulmonary embolism and a moderate severity cardiomyopathy, presents with exertional dyspnea and fatigue. Initial work-up is negative. We will proceed with an exercise thallium stress test, and further cardiac evaluation will depend on clinical course. I will hold Eliquis, and substitute subcutaneous heparin in anticipation of possible invasive coronary angiography depending on his clinical course and the results of his stress test.
--- NOTE | 2021-01-30 12:40 | Progress Note ---
Assessment and Plan Assessment and plan: #Chest pain Troponin x3 negative Cardiology consulted May need a stress test for further evaluation #Dyspnea with exertion Patient has been having worsening dyspnea on exertion climbing stairs. he has a history of pulmonary embolism diagnosed 2019 and since then he has been on anticoagulation CTA performed in the ER negative for any PE Needs cardiac work up #Chronic systolic CHF Continue home medication Cardiology consulted #ERLIN-POA Monitor renal function #History of known embolism Eliquis on hold for now as patient may need cardiac cath #COPD/emphysema Stable He stopped smoking many years ago #DVT prophylaxis-Lovenox Disposition-Home when stable History Interval history: 01/30. He has no new complaints this morning. Combatant Diver Officer been consulted. May need a stress test as per cardiology. Vitals remain stable Hospitalist Physical - Physical exam Narrative exam: VITAL SIGNS: Reviewed. GENERAL: Awake HEAD: No signs of head trauma. EYES: Pupils are equal. Extraocular motions intact. MOUTH: Oropharynx is normal. NECK: No adenopathy, no JVD. CHEST: Chest with diminished breath sounds bilaterally. No wheezes, rales, or rhonchi. CARDIAC: normal S1 and S2, without murmurs, gallops, or rubs. ABDOMEN: Soft, non tender and non distended. No rebound or guarding, and no masses palpated. Bowel Sounds normal. MUSCULOSKELETAL: No edema NEUROLOGIC EXAM: Alert and oriented x3. No focal neurologic deficits SKIN: No obvious lesions - Constitutional Vitals: Temp Pulse Resp BP Pulse Ox 98.2 F 68 18 152/84 97 01/30/21 08:22 01/30/21 08:22 01/30/21 08:22 01/30/21 08:22 01/30/21 09:15 HEART Score - HEART Score EKG: Non-specific Age: > 65 Risk factors: > 3 risk factors or hx of atherosclerotic disease Troponin: Troponin T < 0.010 ng/mL (0.00-0.029) 01/30/21 05:05 Troponin: < normal limit Results - Labs CBC & Chem 7: 01/29/21 12:46 01/30/21 05:05 Labs: Laboratory Last Values WBC 5.3 K/mm3 (4.5-11.0) 01/29/21 12:46 RBC 4.92 M/mm3 (3.65-5.03) 01/29/21 12:46 Hgb 13.7 gm/dl (11.8-15.2) 01/29/21 12:46 Hct 41.9 % (35.5-45.6) 01/29/21 12:46 MCV 85 fl (84-94) 01/29/21 12:46 MCH 28 pg (28-32) 01/29/21 12:46 MCHC 33 % (32-34) 01/29/21 12:46 RDW 17.7 % (13.2-15.2) H 01/29/21 12:46 Plt Count 304 K/mm3 (140-440) 01/29/21 12:46 Lymph % (Auto) 36.2 % (13.4-35.0) H 01/29/21 12:46 [place] % (Auto) 9.4 % (0.0-7.3) H 01/29/21 12:46 Eos % (Auto) 2.4 % (0.0-4.3) 01/29/21 12:46 Baso % (Auto) 0.7 % (0.0-1.8) 01/29/21 12:46 Lymph # (Auto) 1.9 K/mm3 (1.2-5.4) 01/29/21 12:46 [place] # (Auto) 0.5 K/mm3 (0.0-0.8) 01/29/21 12:46 Eos # (Auto) 0.1 K/mm3 (0.0-0.4) 01/29/21 12:46 Baso # (Auto) 0.0 K/mm3 (0.0-0.1) 01/29/21 12:46 Seg Neutrophils % 51.3 % (40.0-70.0) 01/29/21 12:46 Seg Neutrophils # 2.7 K/mm3 (1.8-7.7) 01/29/21 12:46 PT 13.9 Sec. (12.2-14.9) 01/29/21 13:11 INR 1.08 (0.87-1.13) 01/29/21 13:11 APTT 33.7 Sec. (24.2-36.6) 01/29/21 13:11 Sodium 139 mmol/L (137-145) 01/30/21 05:05 Potassium 4.0 mmol/L (3.6-5.0) 01/30/21 05:05 Chloride 103.2 mmol/L (98-107) 01/30/21 05:05 Carbon Dioxide 24 mmol/L (22-30) 01/30/21 05:05 Anion Gap 16 mmol/L 01/30/21 05:05 BUN 22 mg/dL (9-20) H 01/30/21 05:05 Creatinine 1.3 mg/dL (0.8-1.3) 01/30/21 05:05 Estimated GFR > 60 ml/min 01/30/21 05:05 BUN/Creatinine Ratio 17 % 01/30/21 05:05 Glucose 104 mg/dL (75-100) H 01/30/21 05:05 Calcium 9.1 mg/dL (8.4-10.2) 01/30/21 05:05 Total Bilirubin 0.40 mg/dL (0.1-1.2) 01/29/21 12:46 AST 21 units/L (5-40) 01/29/21 12:46 ALT 19 units/L (7-56) 01/29/21 12:46 Alkaline Phosphatase 89 units/L (35-129) 01/29/21 12:46 Troponin T < 0.010 ng/mL (0.00-0.029) 01/30/21 05:05 NT-Pro-B Natriuret Pep 40.43 pg/mL (0-900) 01/29/21 12:46 Total Protein 7.4 g/dL (6.3-8.2) 01/29/21 12:46 Albumin 4.1 g/dL (3.9-5) 01/29/21 12:46 Albumin/Globulin Ratio 1.2 % 01/29/21 12:46 TSH 0.707 mlU/mL (0.270-4.200) 01/29/21 18:59 Free T4 1.19 ng/dL (0.76-1.46) 01/29/21 18:59 Nobles/IV: Voiding Method Toilet Active Medications - Current Medications Current Medications: Generic Name Dose Route Start Last Admin Trade Name Freq PRN Reason Stop Dose Admin Acetaminophen 650 mg 01/29/21 18:49 Acetaminophen 325 Mg Tab PO Q4H PRN Pain MILD(1-3)/Fever >100.5/BUSTOS Albuterol 2.5 mg 01/29/21 18:49 Albuterol 2.5 Mg/3 Ml Nebu IH Q4HRT PRN Shortness Of Breath Aspirin 81 mg 01/30/21 10:00 Aspirin Ec 81 Mg Tab PO QDAY [facility] Atorvastatin Calcium 40 mg 01/29/21 22:00 01/29/21 23:49 Atorvastatin 40 Mg Tab PO 40 mg QHS ANKUSH Administration Carvedilol 25 mg 01/29/21 22:00 01/29/21 23:49 Carvedilol 25 Mg Tab PO 25 mg BID ANKUSH Administration Famotidine 10 mg 01/29/21 22:00 01/29/21 23:49 Famotidine 10 Mg Tab PO 10 mg BID [facility] Administration Heparin Sodium (Porcine) 5,000 unit 01/30/21 22:00 Heparin 5,000 Unit/1 Ml Vial SUB-Q Q12HR [facility] Hydralazine HCl 100 mg 01/29/21 22:00 01/29/21 23:49 Hydralazine 100 Mg Tab PO 100 mg BID [facility] Administration Nifedipine 90 mg 01/30/21 10:00 Nifedipine Xl 90 Mg Tab PO QDAY [facility] Ondansetron HCl 4 mg 01/29/21 18:49 Ondansetron 4 Mg/2 Ml Inj IV Q8H PRN Nausea And Vomiting Sodium Chloride 10 ml 01/29/21 22:00 01/29/21 23:51 Sodium Chloride 0.9% 10 Ml Flush Syringe IV 10 ml BID ANKUSH Administration Sodium Chloride 10 ml 01/29/21 18:49 Sodium Chloride 0.9% 10 Ml Flush Syringe IV PRN PRN LINE FLUSH Sodium Chloride 10 ml 01/29/21 20:03 Sodium Chloride 0.9% 10 Ml Flush Syringe IV PRN PRN LINE FLUSH Tramadol HCl 50 mg 01/29/21 20:03 Tramadol 50 Mg Tab PO Q6H PRN Pain, Moderate (4-6) Valsartan 160 mg 01/30/21 10:00 Valsartan 160mg Tab PO DAILY [facility]
[2021-01-30] MEDS: hydrALAZINE 100 MG TAB PO SCH (13:14)
[2021-01-30] MEDS: carvediloL 25 MG TAB PO SCH (13:14)
[2021-01-30] MEDS: FAMOTIDINE 10 MG TAB PO SCH (13:14)
[2021-01-30 13:17] VITALS: BP 156/97
--- NOTE | 2021-01-30 13:48 | Event Note ---
Date: 01/30/21 The patient underwent an exercise thallium stress test during which he exercised for 7 minutes of a Dimitry protocol, no chest pain, test was stopped for fatigue. ECG revealed no changes of ischemia. Thallium images showed a fixed inferior wall defect of [id number] intensity, consistent with diaphragmatic attenuation artifact. There is no reversible ischemia, left ventricular ejection fraction was 44%, consistent with his historical baseline. Based on the stress thallium findings, patient's risk is low, no further cardiac intervention is indicated. Okay for cardiac discharge on current medications.
--- NOTE | 2021-01-30 14:05 | Discharge Summary ---
Providers - Providers Date of Admission: 01/29/21 18:50 Date of discharge: 01/30/21 Attending physician: EUGENE KAUR 01/29/21 Consult to Cardiac Rehabilitation [CONS] Routine Reason For Exam: Phase I 01/29/21 18:24 Consult to Physician [CONS] Urgent Comment: Consulting Provider: TONY COLE Physician Instructions: Reason For Exam: exertional dyspnea Primary care physician: STAPLER HAND Hospitalization Condition: Stable Hospital course: 65 YO Male with Systolic CHF(EF 35%), HLD, PE on Therapeutic Anticoagulation with Eliquis, GERD, HTN, Nicotine Dependence presents to ED for evaluation. Patient reports "I feel short of breath and my chest feels tight". Patient states that he has experienced decreased exercise tolerance, dyspnea on exertion, dyspnea at rest over the past 3 weeks with worsening symptoms over the past 1 week. Patient transported to [facility] via private vehicle for further care and evaluation of the aforementioned symptoms. Patient seen and evaluated in the emergency department. All lab and imaging studies reviewed. Patient found to have symptoms consistent with CHF decompensation, angina, acute kidney injury. Patient admitted to telemetry and initiated on chest pain protocol. Cardiology team consulted in ED. Further testing as per cardiology team. Patient denies fever, chills, chest pain, palpitation, productive cough, skin rash, recent ill contacts, or known exposure to COVID-19. Prior admission on 05/30/2019 reviewed. All medication listed at time of admission has been reconciled. Advanced care planning conducted in ED. Hospital course Patient has been seen by cardiology and advised a stress test. Patient had a stress test performed and this was normal. He had 5 beats VT and his electrolytes were normal. He will continue his coreg. 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 As per cardiology patient can be discharged. Patient had a CTA chest in the ER that showed no pulmonary embolism. Patient remains on anticoagulation for history of pulmonary embolism. Patient has been advised to follow-up with his PCP and cardiology in a week. He will also follow-up with pulmonology in the office for pulmonary function tests. He will be discharged today. He agrees with plan and management Disposition: DC-01 TO HOME OR SELFCARE Final Discharge Diagnosis (Prints w/discharge instructions): Dyspnea on exertion likely from COPD Time spent for discharge: 20 minutes - Discharge Diagnoses (1) [place] (dyspnea on exertion) Status: Acute Core Measure Documentation - Palliative Care Palliative Care/ Comfort Measures: Not Applicable - Core Measures Any of the following diagnoses?: none Exam - Physical Exam Narrative exam: VITAL SIGNS: Reviewed. GENERAL: Awake HEAD: No signs of head trauma. EYES: Pupils are equal. Extraocular motions intact. MOUTH: Oropharynx is normal. NECK: No adenopathy, no JVD. CHEST: Chest with diminished breath sounds bilaterally. No wheezes, rales, or rhonchi. CARDIAC: normal S1 and S2, without murmurs, gallops, or rubs. ABDOMEN: Soft, non tender and non distended. No rebound or guarding, and no masses palpated. Bowel Sounds normal. MUSCULOSKELETAL: No edema NEUROLOGIC EXAM: Alert and oriented x3. No focal neurologic deficits SKIN: No obvious lesions - Constitutional Vitals: Temp Pulse Resp BP Pulse Ox 98.2 F 70 18 156/97 97 01/30/21 08:22 01/30/21 13:16 01/30/21 08:22 01/30/21 13:16 01/30/21 09:15 Plan Additional Instructions: Use albuterol as needed for shortness of breath. Follow-up with PCP in 1 to 2 weeks. You will need to have pulmonology referral for pulmonary function tests. This has been placed. Follow up with: PRIMARY CAREMD [Primary Care Provider] - 7 Days TONY COLE MD [Staff Physician] - 7 Days JESSICA MILIAN MD [Staff Physician] - 7 Days Prescriptions: Albuterol Mdi (or & Nicu Only) [ProAir HFA Inhaler] 2 puff IH QID PRN #8.5 gram PRN Reason: Shortness Of Breath Albuterol Sulfate [Proair Respiclick] 90 mcg IH PRN PRN #1 [email or web address] PRN Reason: Shortness Of Breath
[2021-01-30] MEDS ORDERED: HEPARIN 5,000 UNIT/1 ML VIAL SUB-Q SCH (22:00)
--- NOTE | 2021-01-31 10:39 | Electrocardiograph Report ---
[facility] Test Date: 2021-01-29 Test Time: 10:50:54 Pat Name: HERO KWONG JR Department: Room: A470 1 Gender: M Subsystems Engineer: : 1955 Requested By: KARINA BRIGHT Order Number: [id number] Reading MD: Anoop Brooks Measurements Intervals [place] Rate: 87 P: 71 [place]: 132 QRS: 18 QRSD: 80 T: 104 QT: 392 QTc: 470 Interpretive Statements Sinus rhythm Anteroseptal infarct, age indeterminate No previous ECG available for comparison Electronically Signed On 01-31-2021 10:39:37 EDT by Anoop Brooks
--- NOTE | 2021-01-31 10:43 | Electrocardiograph Report ---
[facility] Test Date: 2021-01-29 Test Time: 17:15:57 Pat Name: HERO KWONG JR Department: Room: A470 1 Gender: M Parks Recreation Coordinator: CHRISTIANO : 1955 Requested By: JESSIKA GEORGE Order Number: [id number] Reading MD: Anoop Brooks Measurements Intervals [place] Rate: 72 P: 70 [place]: 138 QRS: 24 QRSD: 85 T: 102 QT: 442 QTc: 474 Interpretive Statements Sinus rhythm Atrial premature complexes Probable left atrial enlargement Anteroseptal infarct, age indeterminate Compared to ECG 01/29/2021 10:50:54 No significant changes Electronically Signed On 01-31-2021 10:42:59 EDT by Anoop Brooks
--- NOTE | 2021-01-31 13:55 | Nuclear Medicine Report ---
APPROVED REPORT Exam: Nuclear Stress Test Indication: Chest pain BMI: 0 Stress Test Details Stress Test: Exercise stress testing was performed using a Dimitry protocol. HR Max Heart Rate (APMHR): 154 bpm Target HR (85% APMHR): 130 bpm BP ECG Resting ECG: Sinus Rhythm Stress ECG: Sinus Rhythm, Sinus Tachycardia ST Change: None Arrhythmia: None Recovery ECG: Sinus Rhythm Recovery ST Change: None Recovery Arrhythmia: None Clinical Reason for Termination: Maximal effort Stress Symptoms: Fatigue Exercise duration: 7 min sec Exercise capacity: 8 METs Overall Exercise Capacity for Age: Good Stress ECG Conclusion Good exercise capacity, no chest pain with exercise, no ST changes of ischemia, no dysrhythmias. Thallium images pending for final test interpretation. Howard Treadmill Score is which is Low risk. NM EXAM: Myocardial Perfusion REST/STRESS Imaging Protocol: Rest Tc-99m/Stress Tc-99m 1 day Resting Data Rest SPECT myocardial perfusion imaging was performed in supine position 45 minutes following the intravenous injection of 10 mCi of Tc-99m Myoview. Time of rest injection: 1030 Exercise Stress Time of stress injection: 1130 Gated Stress SPECT was performed 30 minutes after stress injection. Stress only was performed in the Supine position. Study Data At rest, the left ventricular ejection fraction was 44%.. TID = 1.02. Perfusion There is a small area of mildly reduced uptake in the basal and mid segment of the inferior wall which is seen on the stress images as well as the resting images. Wall Motion Mild diffuse hypokinesis. Mildly decreased left ventricular systolic function. Nuclear Conclusion ECG Findings: negative for ischemia Clinical Findings: negative for ischemia Nuclear Findings: negative for ischemia Exercise Capacity: normal Left Ventricular Function: abnormal Risk Study: low Fixed inferior defect of [id number] intensity, consistent with diaphragmatic attenuation artifact. There is no reversible ischemia on this study, clinical correlation is recommended. Conclusion Good exercise capacity, no chest pain with exercise, no ST changes of ischemia, no dysrhythmias. Thallium images pending for final test interpretation.
--- NOTE | 2021-01-31 14:40 | Electrocardiograph Report ---
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
== END 2021-01-30 16:11 | disposition home or self-care (01) ==
LOC: ED 10:35 → 4A 18:50
PROVIDERS: ADMIT Internal Medicine; ATTEND Internal Medicine
DX: I20.8 Other forms of angina pectoris (principal); I11.0 Hypertensive heart disease with heart failure; I50.21 Acute systolic (congestive) heart failure; N17.9 Acute kidney failure, unspecified; K21.9 Gastro-esophageal reflux disease without esophagitis; E78.5 Hyperlipidemia, unspecified; I42.8 Other cardiomyopathies; R79.1 Abnormal coagulation profile; J44.9 Chronic obstructive pulmonary disease, unspecified; F17.210 Nicotine dependence, cigarettes, uncomplicated; Z86.711 Personal history of pulmonary embolism; Z79.82 Long term (current) use of aspirin
CPT/HCPCS: 36415; 71046; 71275; 78452; 80048; 80053; 83735; 83880; 84439; 84443; 84484; 85025; 85610; 85730; 93005; 93017; 99285; A9270; A9502; G0378; Q9967

== ENCOUNTER 2021-11-03 13:56 | Emergency (ER) | payer MEDICARE ==
--- NOTE | 2021-11-03 16:46 | XRay Report ---
CHEST 2 VIEWS INDICATION / CLINICAL INFORMATION: Dyspnea. COMPARISON: 01/29/2021 FINDINGS: SUPPORT DEVICES: None. HEART / MEDIASTINUM: No significant abnormality. LUNGS / PLEURA: No significant pulmonary or pleural abnormality. No pneumothorax. ADDITIONAL FINDINGS: No significant additional findings. IMPRESSION: 1. No acute findings. Signer Name: Vamshi Bravo MD Signed: 11/03/2021 4:41 PM Workstation Name: [id number]
[2021-11-03] MEDS ORDERED: cloNIDine 0.1 MG TAB PO ONE (17:19)
--- NOTE | 2021-11-03 17:19 | Emergency Department Report ---
<MONIQUE MONATLVO - Last Filed: 11/04/21 02:46> ED Shortness of Breath HPI - General Chief Complaint: Dyspnea/Respdistress Stated Complaint: SOB Time Seen by Provider: 11/03/21 16:20 - Related Data Home Medications Medication Instructions Recorded Confirmed Last Taken Apixaban [Eliquis] 5 mg PO DAILY 01/29/21 11/03/21 Unknown Famotidine [Pepcid] 40 mg PO DAILY 01/29/21 11/03/21 Unknown NIFEdipine [Nifedipine ER] 90 mg PO DAILY 01/29/21 11/03/21 Unknown Valsartan [Diovan] 160 mg PO DAILY 01/29/21 11/03/21 Unknown carvediloL [Coreg] 25 mg PO BID 01/29/21 11/03/21 Unknown hydrALAZINE [Apresoline TAB] 100 mg PO BID 01/29/21 11/03/21 11/03/21 100 mg Previous Rx's Medication Instructions Recorded Last Taken Type Aspirin EC [Halfprin EC] 81 mg PO QDAY #30 tablet 06/02/19 Unknown Rx AtorvaSTATin [Lipitor] 40 mg PO QHS #30 tablet 06/02/19 Unknown Rx Albuterol Sulfate [Proair 90 mcg IH PRN PRN #1 [email or web address] 01/30/21 Unknown Rx Respiclick] Allergies Allergy/AdvReac Type Severity Reaction Status Date / Time No Known Allergies Allergy Verified 11/03/21 18:20 ED Past Medical Hx - Medications Home Medications: Home Medications Medication Instructions Recorded Confirmed Last Taken Type Aspirin EC [Halfprin EC] 81 mg PO QDAY #30 tablet 06/02/19 11/03/21 Unknown Rx AtorvaSTATin [Lipitor] 40 mg PO QHS #30 tablet 06/02/19 11/03/21 Unknown Rx Apixaban [Eliquis] 5 mg PO DAILY 01/29/21 11/03/21 Unknown History Famotidine [Pepcid] 40 mg PO DAILY 01/29/21 11/03/21 Unknown History NIFEdipine [Nifedipine ER] 90 mg PO DAILY 01/29/21 11/03/21 Unknown History Valsartan [Diovan] 160 mg PO DAILY 01/29/21 11/03/21 Unknown History carvediloL [Coreg] 25 mg PO BID 01/29/21 11/03/21 Unknown History hydrALAZINE [Apresoline TAB] 100 mg PO BID 01/29/21 11/03/21 11/03/21 History 100 mg Albuterol Sulfate [Proair 90 mcg IH PRN PRN #1 [email or web address] 01/30/21 11/03/21 Unknown Rx Respiclick] ED Medical Decision Making - Lab Data Result diagrams: 11/03/21 16:42 11/03/21 16:42 - Radiology Data Patient Name: HERO KWONG JR Gender: Male Date of : 1955 Referring Provider: VANNA MCADAMS Organization: [facility] Accession Number: [id number] Requested Date: November 04, 2021 01:36 Report Status: Final Requested Procedure: 1 Procedure Description: CT angio chest Modality: CT Findings Reporting MD: Chelsi Solorzano Dictation Time: November 04, 2021 01:02 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 TECHNIQUE: Axial CT images were obtained through the chest after injection of 100 mL of Omnipaque 350 IV contrast. 3 plane MIP and/or 3D reconstructions were produced. All CT scans at this location are performed using CT dose reduction for ALARA by means of automated exposure control. COMPARISON: Chest radiograph 11/03/2021, CTA chest 01/29/2021 FINDINGS: PULMONARY ARTERIES: No pulmonary emboli. THORACIC AORTA: No significant abnormality. HEART: No significant abnormality. CORONARY ARTERIES: No significant calcification. PLEURA: No pleural effusion. No pneumothorax. LYMPH NODES: No significant adenopathy. LUNGS: No acute air space or interstitial disease. COPD is present. Calcified granuloma, right upper lobe. ADDITIONAL FINDINGS: None. UPPER ABDOMEN: No acute findings. SKELETAL STRUCTURES: No significant osseous abnormality. IMPRESSION: 1. No CT evidence for pulmonary embolism. 2. COPD. No acute pulmonary or pleural disease. Signer Name: Chelsi Solorzano MD Signed: 11/04/2021 1:02 AM Workstation Name: [id number] ED Disposition Clinical Impression: Shortness of breath, Malignant hypertension, History of pulmonary embolism, COPD (chronic obstructive pulmonary disease) Disposition: 01 HOME / SELF CARE / HOMELESS Is pt being admited?: No Does the pt Need Aspirin: No Condition: Stable Instructions: Shortness of Breath, Adult, [id number], Hypertension, Adult, Chronic Obstructive Pulmonary Disease (ED), Hypertension (ED) Referrals: PRIMARY CARE, [Primary Care Provider] - 3-5 Days <VANNA MCADAMS - Last Filed: 11/04/21 21:48> ED Shortness of Breath HPI - General Source: patient Mode of arrival: Ambulatory Limitations: No Limitations - History of Present Illness Initial Comments: Patient is 66 years old male with history of COPD, hypertension and history of pulmonary embolism. Patient presented to the ER complaining of shortness of breath since yesterday. Patient stated that he has been using his albuterol wit h no improvement. Upon arrival to the emergency room patient found to have a blood pressure of 208/134. Patient denied any chest pain. He also denied any fever or chills or cough. MD Complaint: shortness of breath -: Last night Known History Of: COPD ED Review of Systems ROS: Stated complaint: SOB Other details as noted in HPI Comment: All other systems reviewed and negative Constitutional: denies: chills, fever Respiratory: shortness of breath, SOB with exertion, SOB at rest, wheezing. denies: cough Cardiovascular: dyspnea on exertion. denies: chest pain, palpitations Gastrointestinal: denies: abdominal pain, nausea, vomiting Neurological: denies: headache, weakness, numbness, paresthesias, confusion ED Past Medical Hx - Past Medical History Hx Hypertension: Yes Hx Pulmonary Embolism: Yes Additional medical history: High Cholesterol. Hx of PE - Social History Smoking Status: Former Smoker ED Physical Exam - General Limitations: No Limitations General appearance: alert, in no apparent distress - Head Head exam: Present: atraumatic, normocephalic, normal inspection - Eye Eye exam: Present: normal appearance - ENT ENT exam: Present: normal exam, normal orophraynx, mucous membranes moist - Neck Neck exam: Present: normal inspection, full ROM. Absent: tenderness, meningismus - Respiratory Respiratory exam: Present: normal lung sounds bilaterally - Cardiovascular Cardiovascular Exam: Present: regular rate, normal rhythm, normal heart sounds - GI/Abdominal GI/Abdominal exam: Present: soft, normal bowel sounds. Absent: distended, tenderness, guarding, rebound, rigid, organomegaly, mass, bruit, pulsatile mass, hernia - Extremities Exam Extremities exam: Present: normal inspection, full ROM, normal capillary refill. Absent: tenderness - Back Exam Back exam: Present: normal inspection, full ROM. Absent: CVA tenderness (R), CVA tenderness (L) - Neurological Exam Neurological exam: Present: alert, oriented X3, CN II-XII intact. Absent: motor sensory deficit - Psychiatric Psychiatric exam: Present: normal mood - Skin Skin exam: Present: warm, intact, normal color ED Course Vital Signs 11/03/21 11/03/21 11/03/21 14:21 17:10 17:47 Temperature 99.0 F 99.1 F Pulse Rate 109 H 93 H Respiratory 18 22 Rate Blood Pressure 226/119 Blood Pressure 208/119 [Right] O2 Sat by Pulse 100 100 96 Oximetry 11/03/21 11/03/21 11/03/21 18:00 18:16 18:17 Temperature 99.1 F Pulse Rate 93 H 72 Respiratory 16 Rate Blood Pressure 214/126 Blood Pressure 207/122 [Right] O2 Sat by Pulse 94 96 96 Oximetry 11/03/21 11/03/21 11/03/21 18:19 19:26 19:47 Temperature 99.1 F 99.1 F Pulse Rate 73 72 Respiratory 11 L 13 Rate Blood Pressure 207/122 Blood Pressure 156/136 [Right] O2 Sat by Pulse 98 97 99 Oximetry 11/03/21 11/03/21 11/03/21 20:00 20:15 20:31 Temperature Pulse Rate 91 H 74 72 Respiratory 12 12 12 Rate Blood Pressure 212/132 212/132 212/132 Blood Pressure [Right] O2 Sat by Pulse 95 98 98 Oximetry 11/03/21 11/03/21 11/03/21 20:38 20:45 21:00 Temperature Pulse Rate 73 74 76 Respiratory 16 14 Rate Blood Pressure 212/132 212/132 200/105 Blood Pressure [Right] O2 Sat by Pulse 97 98 Oximetry 11/03/21 11/03/21 11/03/21 21:15 21:30 21:45 Temperature Pulse Rate 75 97 H 75 Respiratory 14 16 11 L Rate Blood Pressure 200/105 187/97 187/97 Blood Pressure [Right] O2 Sat by Pulse 96 98 97 Oximetry 11/03/21 11/03/21 11/03/21 22:01 22:15 22:31 Temperature Pulse Rate 91 H 86 70 Respiratory 13 13 14 Rate Blood Pressure 190/94 190/94 198/97 Blood Pressure [Right] O2 Sat by Pulse 97 97 98 Oximetry 11/03/21 11/03/21 11/03/21 22:45 23:00 23:15 Temperature Pulse Rate 73 66 61 Respiratory 12 13 14 Rate Blood Pressure 198/97 195/102 195/102 Blood Pressure [Right] O2 Sat by Pulse 96 96 95 Oximetry 11/03/21 11/03/21 11/04/21 23:30 23:45 00:00 Temperature Pulse Rate 69 76 86 Respiratory 13 13 12 Rate Blood Pressure 209/140 209/140 204/105 Blood Pressure [Right] O2 Sat by Pulse 96 99 97 Oximetry 11/04/21 11/04/21 11/04/21 00:15 00:30 00:45 Temperature Pulse Rate 98 H 91 H 62 Respiratory 14 11 L 16 Rate Blood Pressure 204/105 222/105 222/105 Blood Pressure [Right] O2 Sat by Pulse 97 97 91 Oximetry 11/04/21 11/04/21 11/04/21 01:00 01:15 01:43 Temperature Pulse Rate 76 88 Respiratory 17 16 Rate Blood Pressure 166/94 166/94 Blood Pressure [Right] O2 Sat by Pulse 96 97 97 Oximetry 11/04/21 11/04/21 11/04/21 01:45 02:01 02:15 Temperature Pulse Rate Respiratory Rate Blood Pressure 206/113 206/113 Blood Pressure [Right] O2 Sat by Pulse 98 96 96 Oximetry 11/04/21 11/04/21 11/04/21 02:30 02:45 03:00 Temperature Pulse Rate Respiratory Rate Blood Pressure 218/110 218/110 201/118 Blood Pressure [Right] O2 Sat by Pulse 96 93 97 Oximetry 11/04/21 11/04/21 03:15 03:29 Temperature Pulse Rate 71 Respiratory 17 Rate Blood Pressure 201/118 Blood Pressure 201/118 [Right] O2 Sat by Pulse 97 98 Oximetry ED Medical Decision Making - Lab Data Result diagrams: 11/03/21 16:42 11/03/21 16:42 - EKG Data -: EKG Interpreted by Hi EKG shows normal: sinus rhythm Rate: normal - EKG Data Interpretation: no acute changes - Radiology Data Radiology results: report reviewed - Medical Decision Making Patient is 66 years old male with history of COPD, hypertension and history of pulmonary embolism. Patient presented to the ER complaining of shortness of breath since yesterday. Patient stated that he has been using his albuterol with no improvement. Upon arrival to the emergency room patient found to have a blood pressure of 208/134. Patient denied any chest pain. He also denied any fever or chills or cough. EKG is unremarkable. Chest x-ray showed no acute abnormalities. Labs reviewed and is unremarkable. Patient received clonidine initially with improvement in his blood pressure. Patient received hydralazine 20 mg and labetalol. No evidence of congestive heart failure on chest x-ray. Given the patient history of pulmonary embolism however had an order CTA of his chest to rule out pulmonary embolism. Critical care attestation.: If time is entered above; I have spent that time in minutes in the direct care of this critically ill patient, excluding procedure time.
[2021-11-03 17:21] LABS: BUN/Creatinine Ratio 19; Blood Urea Nitrogen 19 mg/dL (9-20); Calcium 9.9 mg/dL (8.4-10.2); Hemolysis Index 31
[2021-11-03 17:23] LABS: Alanine Aminotransferase 33 units/L (7-56); Albumin 4.5 g/dL (3.9-5)
[2021-11-03 17:28] LABS: Basophils # (Auto) 0.1 K/mm3 (0.0-0.1); Basophils % (Auto) 0.9 % (0.0-1.8); Eosinophils # (Auto) 0.1 K/mm3 (0.0-0.4); Eosinophils % (Auto) 0.7 % (0.0-4.3); Hematocrit 48.4 % (35.5-45.6); Hemoglobin 15.8 gm/dl (11.8-15.2); Lymphocytes # (Auto) 2.3 K/mm3 (1.2-5.4); Lymphocytes % (Auto) 31.8 % (13.4-35.0); Mean Corpuscular HGB Conc 33 % (32-34); Mean Corpuscular Volume 85 fl (84-94); Monocytes # (Auto) 0.7 K/mm3 (0.0-0.8); Monocytes % (Auto) 9.2 % (0.0-7.3); Platelet Count 258 K/mm3 (140-440); Red Blood Count 5.68 M/mm3 (3.65-5.03); Red Cell Distribution Width 17.8 % (13.2-15.2)
[2021-11-03 17:38] LABS: Bilirubin,Direct < 0.2 mg/dL (0-0.2)
[2021-11-03 17:41] LABS: INR 0.86 (0.87-1.13); Partial Thromboplastin Time 27.7 Sec. (24.2-36.6)
[2021-11-03] MEDS ORDERED: hydrALAZINE 20 MG/1 ML INJ IV ONE (20:00)
--- NOTE | 2021-11-04 02:06 | Cat Scan Report ---
CTA CHEST WITH IV CONTRAST INDICATION / CLINICAL INFORMATION: Pt complains of Shortness of breath.. TECHNIQUE: Axial CT images were obtained through the chest after injection of 100 mL of Omnipaque 350 IV contras t. 3 plane MIP and/or 3D reconstructions were produced. All CT scans at this location are performed u sing CT dose reduction for ALARA by means of automated exposure control. COMPARISON: Chest radiograph 11/03/2021, CTA chest 01/29/2021 FINDINGS: PULMONARY ARTERIES: No pulmonary emboli. THORACIC AORTA: No significant abnormality. HEART: No significant abnormality. CORONARY ARTERIES: No significant calcification. PLEURA: No pleural effusion. No pneumothorax. LYMPH NODES: No significant adenopathy. LUNGS: No acute air space or interstitial disease. COPD is present. Calcified granuloma, right upper lobe. ADDITIONAL FINDINGS: None. UPPER ABDOMEN: No acute findings. SKELETAL STRUCTURES: No significant osseous abnormality. IMPRESSION: 1. No CT evidence for pulmonary embolism. 2. COPD. No acute pulmonary or pleural disease. Signer Name: Chelsi Solorzano MD Signed: 11/04/2021 2:02 AM Workstation Name: [id number]
[2021-11-04 03:28] VITALS: BP 201/118
== END 2021-11-04 03:29 | disposition home or self-care (01) ==
LOC: ED 13:56
DX: J44.9 Chronic obstructive pulmonary disease, unspecified (principal); I10 Essential (primary) hypertension; E78.00 Pure hypercholesterolemia, unspecified; Z79.01 Long term (current) use of anticoagulants; Z79.82 Long term (current) use of aspirin
CPT/HCPCS: 36415; 71046; 71275; 80048; 80076; 83880; 84484; 85025; 85610; 85730; 87040; 96374; 96375; 99284; J0360; J3490; Q9967